=== PATIENT | male | born 1955 | race Hispanic/Latino ===

== ENCOUNTER 2025-01-07 13:00 | Emergency (ER) | payer OTHER ==
--- OUTSIDE RECORDS SUMMARY | 2025-01-07 13:14 | XMS REPORT | Continuity of Care Document ---
Author Name Unknown Address [address] [facility] [address] [place] [address] [facility] thconnect Address [address] [facility] [address] [place] [address] Care Team Providers Care It Desktop Support Technician Name Role Phone Sheyla Mccallum Primary Care Physician + [phone] MARÍA ELENA COWAN K.H. Attending Clinician Unavaila kylah ANJULIO PERRY Attending Clinician Unavailable ANORLANDO, JULIO Attending Clinician Unavailable MELO CHOE Attending Clinician Unavailab YOGI Alejo Attending Clinician Unavailable ROSENDA MARIE Attending Clinician Unavaila ROSENDA Holguin Attending Clinician Unavaila ble Doctor Unassigned, [place] Attending Clinician U Krystyna Quintana LVN Attending Clinician Unavailjennifer e 2, Amanda-[facility] Infusion Chair Attending Clinician Debbie vailable Melo Choe DO Attending Clinician [phone] Yogi French MD Attending Clinician [phone] Pob, [facility] Main Attending Clinician SHEYLA Reyna Attending Clinician Unavailable Sheyla Mccallum Attending Clinician [phone], Amanda-Vl Infusion Chair Attending Clinician Debbie vailable URSULA KIM Attending Clinician Unavailable Quentin TELLO, Ursula Attending Clinician [phone] Camryn BETANCOURT, María Elena K.H. Attending Clinician [phone] Julio Catalan MD Attending Clinician [phone] NICKI BACA Attending Clinician Unavailable Nicki Baca PA-C Attending Clinician [phone] RAUL PRYOR Attending Clinician Unavailable TORSTEN MAZARIEGOS Attending Clinician Unavailable JUAN CROSS Attending Clinician Unavailable Mariely BETANCOURT, Sophie Belcher Attending Clinician + [phone] Juan Cross MD Attending Clinician [phone] Keely Miner MD Attending Clinician [phone] Lab, Ang - Db Attending Clinician Unavailable Raul Jimenez Attending Clinician [phone] Monica Armstrong MA Attending Clinician Un available CHARLEE DAVIS Attending Clinician Unavailable Camryn BETANCOURT, Sendmalik K.H. Attending Clinician [phone], [facility] Attending Clinician Unavailable Sheyla Mccallum Attending Clinician + [phone] Quintin Ordonez MD Attending Clinician [phone] Lab, Ang - Db Attending Clinician Unavailable Raul Jimenez Attending Clinician [phone] Doctor Unassigned, [place] Attending Clinician U Rosenda Mata MD Attending Clinician + [phone] FRED BELCHER Attending Clinician Unavailable FRED BELCHER Attending Clinician Unavailable LUNA ALMEIDA Attending Clinician Unavailable Luna Almeida MD Attending Clinician [phone] Jagjit EVERETT, Gisela Pleitez Attending Clinician Unavaila PHILIP De Luna Attending Clinician Unavailable ELMO DUARTE Attending Clinician Unavailable ARLIN BENSON Attending Clinician Unavailable Arlin Benson MD Attending Clinician [phone] Unknown, Attending Attending Clinician Unavailab le UNKNOWN, ATTENDING Attending Clinician Unavailab le Nimtz PRESIDENT AND CMO, Brenda L Attending Clinician [phone] DANIELLE BRENDA Susanne Attending Clinician Unavailable Bhupendra EVERETT, Lyndon Figueroa Attending Clinician Unavail able Juan Cross MD Attending Clinician [phone] Jarrett Coronado MD Attending Clinician [phone] , [facility] Sleep Lab Bed Attending Clinician Unavail able Only, [facility] Test Attending Clinician Unavailable Aaron Newsome MD Attending Clinician [phone] AARON NEWSOME Attending Clinician UnavailRizwana Beltran MD Attending Clinician [phone] DARCY RIVERO Attending Clinician RIZWANA Limon Attending Clinician UnavailJeremy Concepcion Attending Clinician [phone] JEREMY RIVAS Attending Clinician Unavailable PAMELA PETERSON Attending Clinician Unavailable , [facility] Echo Room 1 - Attending Clinician Janet Wilkins MD, Wilmer Attending Clinician [phone] Elmo Rajput Attending Clinician [phone] YOGI FRENCH Admitting Clinician Unavailable Yogi French MD Admitting Clinician [phone] URSULA KIM Admitting Clinician Unavailable MARÍA ELENA COWAN Admitting Clinician UnavailJUAN Blanco Admitting Clinician Unavailable Juan Cross MD Admitting Clinician [phone] JULIO CATALAN Admitting Clinician Unavailable Juan Cross MD Admitting Clinician [phone] Payers Payer Name Policy Type Policy Number Effective Date Expirati on Date Source Problems Condition Name Condition Details Condition Category Status Onset Date Resolution Date Last Treatment Date Treating Clinician Comments Source End stage renal disease End stage renal disease Disease Active -16 00:00: 00 [facility] At risk for falls At risk for falls Disease Active 2023-11 00:00: 00 [facility] Unspecifie d abnormalit ies of gait and mobility Unspecifie d abnormalit ies of gait and mobility Disease Active 2023-11 00:00: 00 [facility] Hematuria, unspecifie d type Hematuria, unspecifie d type Disease Active 9-29 00:00: 00 [facility] Venous stasis dermatitis of both lower extremitie s Venous stasis dermatitis of both lower extremitie s Disease Active 830 00:00: 00 [facility] CKD (chronic kidney disease) stage 4, GFR 15-29 ml/min CKD (chronic kidney disease) stage 4, GFR 15-29 ml/min Disease Active 03-08 00:00: 00 [facility] Anemia, unspecifie d type Anemia, unspecifie d type Disease Active 4 00:00: 00 [facility] Venous stasis ulcer of right calf with fat layer exposed, unspecifie d whether varicose veins present Venous stasis ulcer of right calf with fat layer exposed, unspecifie d whether varicose veins present Disease Active 12-09 00:00: 00 [facility] Skin ulcer of third toe of left foot, limited to breakdown of skin Skin ulcer of third toe of left foot, limited to breakdown of skin Disease Active 12-09 00:00: 00 [facility] Cellulitis Cellulitis Disease Active 04-09 00:00: 00 [facility] Volume overload Volume overload Disease Active 04-09 00:00: 00 [facility] Chronic diastolic congestive heart failure Chronic diastolic congestive heart failure Disease Active 04-09 00:00: 00 [facility] ANNA (acute kidney injury) ANNA (acute kidney injury) Disease Active 04-09 00:00: 00 [facility] ANNA (acute kidney injury) ANNA (acute kidney injury) Disease Active 04-09 00:00: 00 [facility] Acute on chronic diastolic CHF (congestiv e heart failure) Acute on chronic diastolic CHF (congestiv e heart failure) Disease Active 04-08 00:00: 00 [facility] Morbid obesity with body mass index of 50 or higher Morbid obesity with body mass index of 50 or higher Disease Active 05-26 00:00: 00 [facility] 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 Disease Active 05-26 00:00: 00 [facility] JESUSITA on CPAP JESUSITA on CPAP Disease Active 05-26 00:00: 00 [facility] Chronic kidney disease, stage III (moderate) Chronic kidney disease, stage III (moderate) Disease Active 05-26 00:00: 00 [facility] Morbid obesity with body mass index of 40.0-49.9 Morbid obesity with body mass index of 40.0-49.9 Disease Active 05-26 00:00: 00 [facility] (HFpEF) heart failure with preserved ejection fraction (HFpEF) heart failure with preserved ejection fraction Disease Active 05-26 00:00: 00 [facility] Essential hypertensi on Essential hypertensi on Disease Active 05-02 00:00: 00 [facility] QUARLES (dyspnea on exertion) QUARLES (dyspnea on exertion) Disease Active 05-02 00:00: 00 [facility] Knee pain, bilateral Knee pain, bilateral Disease Active 05-01 00:00: 00 [facility] Knee pain, bilateral Knee pain, bilateral Disease Active 05-01 00:00: 00 [facility] Allergies, Adverse Reactions, Alerts Allergy Name Allergy Type Status Severity Reaction(s) Onset Date Inactive Date Treating Clinician Comments Source NO KNOWN ALLERGIE S Drug Class Active [facility] Social History Social Habit Start Date Stop Date Quantity Comments Source History SDOH Alcohol Std Drinks [facility] History SDOH Alcohol Binge [facility] History SDOH Social Connections Get Together [facility] History SDOH Social Connections Taoist [facility] History SDOH Social Connections Membership [facility] History SDOH Social Connections Meetings [facility] Gender identity [facility] Alcoholic beverage intake 2024-11-25 00:00:00 2024-11-25 00:00:00 Current non-drinker of alcohol (finding) [facility] History of Social function 2024-07-09 00:00:00 2024-07-09 00:00:00 [facility] Alcohol intake 2024-03-09 00:00:00 2024-03-09 00:00:00 Current non-drinker of alcohol (finding) [facility] History SDOH Alcohol Frequency 2023-04-09 00:00:00 2023-04-09 00:00:00 1 [facility] History SDOH Social Connections Phone 2023-04-09 00:00:00 2023-04-09 00:00:00 5 [facility] History SDOH Social Connections Living 2023-04-09 00:00:00 2023-04-09 00:00:00 3 [facility] History SDOH Financial 2023-04-09 00:00:00 2023-04-09 00:00:00 5 [facility] History SDOH Food Worry 2023-04-09 00:00:00 2023-04-09 00:00:00 1 [facility] History SDOH Food Scarcity 2023-04-09 00:00:00 2023-04-09 00:00:00 1 [facility] History SDOH Transport Med 2023-04-09 00:00:00 2023-04-09 00:00:00 2 [facility] History SDOH Transport Non-Med 2023-04-09 00:00:00 2023-04-09 00:00:00 2 [facility] History SDOH Housing Unable to Pay 2023-04-09 00:00:00 2023-04-09 00:00:00 2 [facility] History SDOH Housing Places Lived 2023-04-09 00:00:00 2023-04-09 00:00:00 1 [facility] History SDOH Housing Homeless Last Year 2023-04-09 00:00:00 2023-04-09 00:00:00 2 [facility] Exposure to SARS-CoV-2 (event) 2023-03-29 00:00:00 2023-04-08 17:34:00 Not sure [facility] Tobacco use and exposure 2022-08-09 00:00:00 2022-08-09 00:00:00 Smokeless tobacco non-user [facility] Sex assigned at 1955 00:00:00 1955 00:00:00 [facility] Smoking Status Start Date Stop Date Source Never smoked tobacco [facility] Medications Ordered Medication Name Filled Medication Name Start Date Stop Date Current Medication? Ordering Clinician Indication Dosage Frequency Signature (SIG) Comments Components Source NaCl 0.9% (NS) bolus infusion 250 mL 12-21 18:00: 00 12-21 19:25 :00 No [id number] 250mL 250 mL, IV Piggyback, at 250 mL/hr Administer over 60 Minutes, ONCE, 1 dose, On Fri12/21/24 at 1200, Routine [facility] cycloPHOSph amide (CYTOXAN LYOPHILIZED ) 850 mg in D5W 250 mL 12-21 15:30: 00 12-21 18:00 :00 No [id number] 850mg 850 mg, Intravenou s, Administer over 90 Minutes, ONCE, 1 dose, On Fri12/21/24 at 0930, Routine [facility] NaCl 0.9% (NS) bolus infusion 500 mL 12-21 14:30: 00 12-21 16:30 :00 No [id number] 500mL 500 mL, IV Piggyback, at 500 mL/hr Administer over 60 Minutes, ONCE, 1 dose, On Fri12/21/24 at 0830, STAT [facility] ondansetron (ZOFRAN) tablet 8 mg 12-21 14:15: 00 12-21 15:57 :00 No [id number] 8mg 8 mg, Oral, ONCE, 1 dose, On Fri12/21/24 at 0815, Routine [facility] bupivacaine (preserv free) (SENSORCAIN E MPF) 0.25 % (2.5 mg/mL) injection 12-09 15:12: 00 12-09 16:32 :20 No PRN, Starting on Zully 12/09/24 at 0912, Until Zully 12/09/24 at 1032, Routine, Intra-op [facility] water for irrigation irrigation solution 12-09 15:11: 00 12-09 16:32 :20 No PRN, Starting on Zully 12/09/24 at 0911, Until Zully 12/09/24 at 1032, Routine, Intra-op [facility] NaCl 0.9% (NS) IV infusion 12-09 15:11: 12-09 16:32 :20 No CONTINUOUS PRN, Starting on Zully 12/09/24 at 0911, Until Zully 12/09/24 at 1032, Routine, Intra-op [facility] heparin 5,000 unit/mL injection 12-09 15:11: 00 12-09 16:32 :20 No PRN, Starting on Zully 12/09/24 at 0911, Until Zully 12/09/24 at 1032, Routine, Intra-op [facility] acetaminoph en (TYLENOL EXTRA STRENGTH) 500 mg tablet 12-09 00:00: 00 Yes [id number] 500mg Take 1 tablet by mouth every 6 (six) hours as needed for Pain. [facility] traMADoL 50 mg tablet 12-09 00:00: 00 12-17 05:59 :00 No [id number] 50mg Take 1 tablet by mouth every 6 (six) hours as needed for Pain (scale 7-10) for up to 7 days. Indication s: acute pain [facility] Cholecalcif deidra, Vitamin D3, (VITAMIN D3) 50 mcg (2,000 unit) tablet 11-25 15:32: 21 Yes Take by mouth. [facility] cycloPHOSph amide 850 mg in NaCl 0.9% (NS) 250 mL IV infusion 11-23 15:00: 00 11-23 18:43 :00 No [id number] 850mg 850 mg, IV Infusion, ONCE, Administer over 90 Minutes, On Fri11/23/24 at 0900, For 1 dose, 7.5 mg/kg x 113.4 kg = 850. 5 mg round to 850 mg Today weight is 113.7 kg within 10% 3/6 monthy [facility] NaCl 0.9% (NS) IV infusion 500 mL 11-23 14:45: 00 11-23 16:46 :00 No [id number] 500mL at 250 mL/hr, IV Infusion, ONCE, 1 dose, On Fri11/23/24 at 0845, Routine, Pre Cytoxan infusion [facility] NaCl 0.9% (NS) bolus infusion 250 mL 11-23 14:15: 00 11-23 19:56 :00 No [id number] 250mL 250 mL, IV Piggyback, at 250 mL/hr Administer over 1 Hours, ONCE, 1 dose, On Fri11/23/24 at 0815, STAT [facility] ondansetron (ZOFRAN) tablet 8 mg 11-23 14:15: 00 11-23 16:24 :00 No [id number] 8mg 8 mg, Oral, ONCE, 1 dose, On Fri11/23/24 at 0815, Routine [facility] predniSONE 20 mg tablet 11-19 00:00: 00 02-18 04:59 :00 Yes 20mg Take 1 tablet by mouth in the morning. [facility] escitalopra m oxalate 10 mg tablet 11-11 00:00: 00 Yes [id number] 10mg Take 1 tablet by mouth in the morning. [facility] cycloPHOSph amide (CYTOXAN LYOPHILIZED ) 850 mg in D5W 250 mL 2023-11 16:45: 00 10-26 18:26 :00 No [id number] 850mg 850 mg, Intravenou s, Administer over 90 Minutes, ONCE, 1 dose, On Fri10/26/24 at 1045, Routine [facility] ondansetron (ZOFRAN) tablet 8 mg 2023-11 16:45: 00 10-26 16:20 :00 No [id number] 8mg 8 mg, Oral, ONCE, 1 dose, On Fri10/26/24 at 1045, Routine [facility] NaCl 0.9% (NS) IV infusion 500 mL 2023-11 14:15: 00 10-26 16:40 :00 No [id number] 500mL at 250 mL/hr, IV Infusion, ONCE, 1 dose, On Fri10/26/24 at 0815, Routine, Prior to Cytoxan [facility] methocarbam oL (ROBAXIN) tablet 1,000 mg 2023-11 19:00: 00 09-26 18:57 :00 No 1000mg 1,000 mg, Oral, ONCE, 1 dose, On Fri09/26/24 at 1300, NATE [facility] methocarbam oL 750 mg tablet 2023-11 00:00: 00 12-09 00:00 :00 No [id number] 750mg Take 1 tablet by mouth 4 (four) times daily as needed for Pain (scale 1-3) or Pain (scale 4-6). [facility] sevelamer 800 mg tablet 2023-11 00:00: 00 Yes 800mg Take 1 tablet by mouth in the morning and 1 tablet at noon and 1 tablet in the evening. Take with meals. [facility] furosemide 40 mg tablet 2023-11 00:00: 00 Yes 40mg Take 1 tablet by mouth every other day. Not on HD days [facility] hydrALAZINE 25 mg tablet 2023-11 00:00: 00 Yes 25mg Take 1 tablet by mouth in the morning. [facility] NaCl 0.9% (NS) bolus infusion 250 mL 2023-11 17:00: 00 09-16 21:53 :00 No [id number] 250mL at 250 mL/hr, 250 mL, IV Piggyback, ONCE, 1 dose, On Fri09/16/24 at 1100, Routine [facility] cycloPHOSph amide (CYTOXAN LYOPHILIZED ) 850 mg in D5W 250 mL 2023-11 17:00: 00 09-16 20:35 :00 No [id number] 850mg 850 mg, Intravenou s, Administer over 90 Minutes, ONCE, 1 dose, On Fri09/16/24 at 1100, Routine [facility] NaCl 0.9% (NS) IV infusion 500 mL 2023-11 16:45: 00 09-16 18:50 :00 No [id number] 500mL at 250 mL/hr, IV Infusion, ONCE, 1 dose, On Fri09/16/24 at 1045, Routine [facility] ondansetron (ZOFRAN) tablet 8 mg 2023-11 16:45: 00 09-16 18:19 :00 No [id number] 8mg 8 mg, Oral, ONCE, 1 dose, On Fri09/16/24 at 1045, Routine [facility] sulfur hexafluorid e microsphr (LUMASON) injection 5 mL 2023-11 15:45: 00 09-14 15:33 :00 No [id number] 5mL 5 mL, Intravenou s, ONCE, 1 dose, On Fri09/14/24 at 0945, Routine [facility] escitalopra m oxalate 10 mg tablet 2023-11 00:00: 00 11-11 00:00 :00 No [id number] 10mg Take 1 tablet by mouth in the morning. [facility] ergocalcife rol, vitamin d2, 1,250 mcg (50,000 unit) capsule 2023-11 00:00: 00 09-19 05:59 :00 No [id number] 25199E Take 1 capsule by mouth weekly for 28 days. [facility] amLODIPine (NORVASC) tablet 10 mg 2023-11 02:00: 00 Yes [id number] 10mg 10 mg, Oral, QHS, First dose (after last modificati on) on Fri08/18/24 at 2100, Until Discontinu ed, Routine [facility] pantoprazol e 40 mg EC tablet 2023-11 00:00: 00 09-19 05:59 :00 No [id number] 40mg Take 1 tablet by mouth in the morning for 30 days. [facility] predniSONE 20 mg tablet 2023-11 00:00: 00 09-19 05:59 :00 No [id number] 60mg Take 3 tablets by mouth in the morning for 30 days. [facility] 1,000 unit/mL (10 mL) - dialysis catheter care 2023-11 16:15: 00 08-18 15:40 :00 No [id number] 3700U ONCE, 1 dose, On Fri08/18/24 at 1115, Routine [facility] furosemide (LASIX) tablet 40 mg 2023-11 14:00: 00 Yes [id number] 40mg 40 mg, Oral, DAILY, First dose on Fri08/18/24 at 0900, Until Discontinu ed, Routine [facility] NaCl 0.9% (NS) injection 5 mL 2023-11 12:00: 00 08-18 15:41 :00 No [id number] 5mL 5 mL, Slow IV Push, ONCE, 1 dose, On Fri08/18/24 at 0700, Routine [facility] hydrALAZINE (APRESOLINE ) tablet 50 mg 2023-11 03:00: 00 Yes [id number] 50mg 50 mg, Oral, Q8H, First dose (after last modificati on) on Fri08/17/24 at 2200, Until Discontinu ed, Routine [facility] pantoprazol e 40 mg EC tablet 2023-11 00:00: 00 Yes 40mg Take 1 tablet by mouth in the morning. [facility] amLODIPine 10 mg tablet 2023-11 00:00: 00 09-18 05:59 :00 No [id number] 10mg Take 1 tablet by mouth at bedtime for 30 days. [facility] furosemide 40 mg tablet 2023-11 00:00: 00 09-18 05:59 :00 No [id number] 40mg Take 1 tablet by mouth in the morning for 30 days. [facility] hydrALAZINE 50 mg tablet 2023-11 00:00: 00 09-18 05:59 :00 No [id number] 50mg Take 1 tablet by mouth every 8 (eight) hours for 30 days. [facility] sevelamer 800 mg tablet 2023-11 00:00: 00 09-18 05:59 :00 No [id number] 800mg Take 1 tablet by mouth in the morning and 1 tablet at noon and 1 tablet in the evening. Take with meals. Do all this for 30 days. [facility] pantoprazol e (PROTONIX) EC tablet 40 mg 2023-11 17:00: 00 Yes [id number] 40mg 40 mg, Oral, DAILY, First dose on Fri08/17/24 at 1200, Until Discontinu ed, Routine [facility] predniSONE (DELTASONE) tablet 60 mg 2023-11 17:00: 00 Yes [id number] 60mg 60 mg, Oral, DAILY, First dose on Fri08/17/24 at 1200, Until Discontinu ed, Routine [facility] heparin 1,000 unit/mL (10 mL) - dialysis catheter care 2023-11 23:15: 00 08-16 23:19 :00 No [id number] 1000U ONCE, 1 dose, On Fri08/16/24 at 1815, Routine [facility] NaCl 0.9% (NS) injection 5 mL 2023-11 12:00: 00 08-16 20:05 :00 No [id number] 5mL 5 mL, Slow IV Push, ONCE, 1 dose, On Fri08/16/24 at 0700, Routine [facility] hydrALAZINE (APRESOLINE ) tablet 75 mg 2023-11 19:00: 00 08-17 12:50 :49 No [id number] 75mg 75 mg, Oral, Q8H, First dose (after last modificati on) on Fri08/15/24 at 1400, Until Discontinu ed, Routine [facility] hydrALAZINE (APRESOLINE ) tablet 50 mg 2023-11 19:00: 00 08-15 15:32 :38 No [id number] 50mg 50 mg, Oral, Q8H, First dose (after last modificati on) on 08/14/24 at 1400, Until Discontinu ed, Routine [facility] glucagon HCL injection 1 mg 2023-11 14:48: 37 Yes 1mg 1 mg, Intramuscu lar, PRN, Starting on 08/14/24 at 0948, Until Discontinu ed, NATE, Low blood sugar, Blood Glucose < or = 70 mg/dL and patient is NPO, unable to swallow or has mental changes. [facility] dextrose 50 % in water (D50W) injection 25 mL 2023-11 14:48: 37 Yes 25mL 25 mL, Slow IV Push, PRN, Starting on 08/14/24 at 0948, Until Discontinu ed, NATE, Blood Glucose < or = 70 mg/dL and patient is NPO, unable to swallow or has mental status changes. [facility] ergocalcife rol (vitamin d2) (CALCIFEROL ) capsule 50,000 Units 2023-11 14:00: 00 Yes [id number] 50,000 Units, Oral, QWEEKLY, First dose on 08/14/24 at 0900, Until Discontinu ed, Routine [facility] amLODIPine (NORVASC) tablet 10 mg 2023-11 14:00: 00 08-17 20:20 :46 No 10mg 10 mg, Oral, DAILY, First dose (after last modificati on) on 08/14/24 at 0900, Until Discontinu ed, Routine [facility] sevelamer (RENVELA) tablet 800 mg 2023-11 13:00: 00 Yes 800mg 800 mg, Oral, TID MEALS, First dose on 08/14/24 at 0800, Until Discontinu ed, Routine [facility] methylPREDN ISolone sodium succinate (SOLU-MEDRO L) 500 mg in NaCl 0.9% (NS) piggyback 2023-11 10:00: 00 08-16 11:04 :29 No 500mg 500 mg, IV Piggyback, Q24H, 3 doses, First dose on Fri08/14/24 at 0500, Last dose on Fri08/16/24 at 0500, Administer over 60 Minutes, 250 mL [facility] heparin (porcine) injection 5,000 Units 2023-11 0-05 01:00: 00 Yes [id number] 5000U 5,000 Units, Subcutaneo us, Q12H, First dose (after last modificati on) on Fri08/13/24 at 2000, Until Discontinu ed, [facility] heparin (porcine) injection 5,000 Units 2023-11 0-04 13:00: 00 Yes [id number] 5000U 5,000 Units, Subcutaneo us, Q12H, First dose (after last modificati on) on Fri08/13/24 at 0800, Until Discontinu ed, Routine [facility] azithromyci n (ZITHROMAX) tablet 500 mg 2023-11 0- 19:00: 00 08-12 18:16 :00 No 500mg 500 mg, Oral, Q24H ABX, 1 dose, First dose (after last modificati on) on Fri08/12/24 at 1400, Routine, Reason for Anti-Infec tive: Documented Infection, Documented Infection Site: Respirator y, Duration of Therapy: Other (see Comments) [facility] desmopressi n (DDAVP) 40 mcg in NaCl 0.9% (NS) piggyback 2023-11 0 17:00: 00 08-12 18:52 :26 No [id number] 40ug 40 mcg, IV Piggyback, ONCE, 1 dose, On Fri08/12/24 at 1200, 50 mL [facility] hydralAZINE (APRESOLINE ) injection 10 mg 2023-11 0-03 13:45: 00 08-12 14:20 :00 No [id number] 10mg 10 mg, Slow IV Push, ONCE, 1 dose, On Fri08/12/24 at 0845, STAT [facility] hydrALAZINE (APRESOLINE ) tablet 25 mg 2023-11 0-03 01:00: 00 08-14 16:24 :08 No [id number] 25mg 25 mg, Oral, BID, First dose on Fri08/11/24 at 2000, Until Discontinu ed, Routine [facility] azithromyci n (ZITHROMAX) tablet 250 mg 2023-11 19:00: 00 08-12 15:15 :33 No 250mg 250 mg, Oral, Q24H ABX, 2 doses, First dose on Fri08/11/24 at 1400, Last dose on Fri08/12/24 at 1400, Routine, Reason for Anti-Infec tive: Documented Infection, Documented Infection Site: Respirator y, Duration of Therapy: Other (see Comments) [facility] heparin 1,000 unit/mL (10 mL) - dialysis catheter care 2023-11 17:15: 00 08-11 16:29 :00 No [id number] 1000U ONCE, 1 dose, On Fri08/11/24 at 1215, Routine [facility] amLODIPine (NORVASC) tablet 5 mg 2023-11 17:00: 00 08-14 02:18 :12 No 5mg 5 mg, Oral, DAILY, First dose on Fri08/11/24 at 1200, Until Discontinu ed, Routine [facility] NaCl 0.9% (NS) injection 5 mL 2023-11 12:00: 00 08-11 16:31 :00 No [id number] 5mL 5 mL, Slow IV Push, ONCE, 1 dose, On Fri08/11/24 at 0700, Routine [facility] hydralAZINE (APRESOLINE ) injection 10 mg 2023-11 01:14: 07 08-12 13:00 :06 No 10mg 10 mg, Slow IV Push, Q4HPRN, Starting on Fri08/10/24 at 2013, Until Fri08/12/24 at 0800, STAT, DBP=>100; SBP=>160 [facility] heparin (porcine) injection 5,000 Units 2023-11 002 01:00: 00 08-11 16:50 :03 No [id number] 5000U 5,000 Units, Subcutaneo us, Q12H, First dose (after last modificati on) on Fri08/10/24 at 2000, Until Discontinu ed, Routine [facility] cefTRIAXone (ROCEPHIN) 1,000 mg in NaCl 0.9% (NS) 100 mL MINI-BAG 2023-11 23:45: 00 08-14 23:22 :04 No 1000mg 1,000 mg, IV Piggyback, Q24H ABX, 5 doses, First dose on Fri08/10/24 at 1845, Last dose on Fri08/14/24 at 1845, Administer over 30 Minutes, 100 mL, Reason for Anti-Infec tive: Empiric Therapy for Suspected Infection, Empiric Therapy Site: Respirator y, Duration of therapy: 5 days [facility] heparin 1,000 unit/mL (10 mL) - dialysis catheter care 2023-11 22:30: 00 08-11 00:00 :00 No [id number] 1000U ONCE, 1 dose, On Fri08/10/24 at 1730, Routine [facility] HYDROcodone -acetaminop hen (NORCO 5) tablet 1 tablet 2023-11 17:59: 44 Yes 1{tbl} 1 tablet, Oral, Q8HPRN, Starting on Fri08/10/24 at 1259, Until Discontinu ed, NATE, Pain (scale 7-10) [facility] azithromyci n (ZITHROMAX) 500 mg in NaCl 0.9% (NS) 250 mL VIAL-MATE IV piggyback 2023-11 16:30: 00 08-11 15:50 :36 No 500mg 500 mg, IV Piggyback, Q24H ABX, 3 doses, First dose on Fri08/10/24 at 1130, Last dose on Fri08/12/24 at 1130, Administer over 60 Minutes, 250 mL, Reason for Anti-Infec tive: Empiric Therapy for Suspected Infection, Empiric Therapy Site: Respirator y, Duration of therapy: 5 days [facility] heparin lock flush (HEPARIN LOCKFLUSH(P ORCINE)(PF) ) 100 unit/mL injection 2023-11 16:17: 00 08-10 16:37 :02 No PRN, Starting on Fri08/10/24 at 1117, Until Fri08/10/24 at 1137, Routine, Intra-op [facility] NaCl 0.9% (NS) IV infusion 2023-11 15:58: 00 08-10 16:37 :02 No CONTINUOUS PRN, Starting on Fri08/10/24 at 1058, Until Fri08/10/24 at 1137, Routine, Intra-op [facility] bupivacaine -epinephrin e-pf (SENSORCAIN E W/EPINEPHRI NE) 0.25 %-1:200,000 injection 2023-11 15:58: 00 08-10 16:37 :02 No PRN, Starting on Fri08/10/24 at 1058, Until Fri08/10/24 at 1137, Routine, Intra-op [facility] magnesium sulfate in D5W 1 gram/100 mL RTU IV Piggyback 1 g 2023-11 13:30: 00 08-10 15:13 :00 No [id number] 1g 1 g, IV Piggyback, ONCE, 1 dose, On Fri08/10/24 at 0830, Administer over 90 Minutes, 100 mL [facility] potassium chloride in water 10 mEq/100 mL RTU 10 mEq 2023-11 13:30: 00 08-10 15:53 :00 No [id number] 10meq 10 mEq, IV Piggyback, ONCE, 1 dose, On Fri08/10/24 at 0830, Administer over 120 Minutes, 100 mL [facility] heparin (porcine) injection 5,000 Units 2023-11 01:00: 00 08-10 12:41 :37 No [id number] 5000U 5,000 Units, Subcutaneo us, Q12H, First dose (after last modificati on) on Fri08/09/24 at 2000, Until Discontinu ed, Routine [facility] calcium acetate(jenniffer sphat bind) (PHOSLO) capsule 667 mg 08-09 17:00: 00 08-16 17:23 :22 No [id number] 667mg 667 mg, Oral, TID MEALS, First dose on Fri08/09/24 at 1200, Until Discontinu ed, Routine [facility] fluconazole (DIFLUCAN) Piggyback 200 mg 08-09 16:00: 00 08-10 15:21 :48 No [id number] 200mg at 100 mL/hr, IV Piggyback, Q24H ABX, 5 doses, First dose on Fri08/09/24 at 1100, Last dose on Fri08/13/24 at 1100, NATE, Do Not Refrigerat e. [facility] cefTRIAXone (ROCEPHIN) 1,000 mg in NaCl 0.9% (NS) 100 mL MINI-BAG 08-09 15:15: 00 08-09 22:19 :16 No 1000mg 1,000 mg, IV Piggyback, Q24H ABX, 7 doses, First dose on Fri08/09/24 at 1015, Last dose on Fri08/15/24 at 1015, Administer over 30 Minutes, 100 mL, Reason for Anti-Infec tive: Documented Infection, Documented Infection Site: Urine, Duration of Therapy: 7 days [facility] KCL (KLOR-CON M10) tablet 10 mEq 08-09 15:00: 00 08-09 15:35 :00 No 10meq 10 mEq, Oral, ONCE, 1 dose, On Fri08/09/24 at 1000, Routine [facility] sodium bicarbonate 150 mEq in D5W 1,000 mL IV infusion 08-09 14:15: 00 08-10 12:41 :02 No [id number] 150meq IV Infusion, at 75 mL/hr, 150 mEq, CONTINUOUS , Starting on Fri08/09/24 at 0915, Until Fri08/10/24 at 0741, Routine [facility] escitalopra m oxalate (LEXAPRO) tablet 10 mg 08-09 14:00: 00 Yes 10mg 10 mg, Oral, DAILY, First dose on Fri08/09/24 at 0900, Until Discontinu ed, Routine [facility] magnesium sulfate in D5W 1 gram/100 mL RTU IV Piggyback 1 g 08-09 14:00: 00 08-09 15:08 :00 No [id number] 1g 1 g, IV Piggyback, ONCE, 1 dose, On Fri08/09/24 at 0900, Administer over 90 Minutes, 100 mL [facility] benzonatate (TESSALON PERLES) capsule 100 mg 08-09 01:32: 51 Yes 100mg [facility] acetaminoph en (TYLENOL) tablet 650 mg 08-08 20:19: 17 Yes 650mg [facility] NaCl 0.9% (NS) bolus infusion 1,000 mL 08-08 18:00: 00 08-08 19:00 :00 No 1000mL at 999 mL/hr, 1,000 mL, IV Infusion, ONCE, 1 dose, On Fri08/08/24 at 1300, NATE [facility] benzonatate (TESSALON PERLES) 100 mg capsule 08-06 00:00: 00 08-26 00:00 :00 No [id number] 100mg Take 1 capsule by mouth every 8 (eight) hours as needed for Cough. [facility] cephALEXin 500 mg capsule 08-06 00:00: 00 08-18 00:00 :00 No [id number] 500mg Take 1 capsule by mouth in the morning and 1 capsule in the evening. Do all this for 10 days. [facility] escitalopra m oxalate 10 mg tablet 08-02 00:00: 00 09-02 00:00 :00 No [id number] 10mg Take 1 tablet by mouth in the morning. MUST BE SEEN FOR FURTHER REFILLS [facility] triamcinolo ne acetonide 0.1 % ointment 07-09 00:00: 00 08-18 00:00 :00 No [id number] Apply to area(s) 2 (two) times daily. [facility] escitalopra m oxalate (LEXAPRO) 10 mg tablet 07-02 00:00: 00 08-02 00:00 :00 No [id number] 10mg Take 1 tablet by mouth in the morning. Follow-up for refills and fasting labs. [facility] aspirin 81 mg chewable tablet 24 14:21: 40 08-18 00:00 :00 No 81mg Take 1 tablet by mouth in the morning. [facility] docusate 100 mg capsule 05-03 14:21: 36 08-18 00:00 :00 No 100mg Take 1 capsule by mouth in the morning. [facility] valsartan-h ydrochlorot hiazide 320-12.5 mg per tablet 04-16 00:00: 00 05-03 00:00 :00 No [id number] TAKE 1 TABLET BY MOUTH EVERY DAY [facility] ESCITALOPRA M OXALATE 10 mg tablet 17 00:00: 00 07-02 00:00 :00 No [id number] 10mg TAKE 1 TABLET BY MOUTH EVERY MORNING. MUST BE SEEN FOR FURTHER REFILLS [facility] HYDROcodone -acetaminop hen 7.5-325 mg per tablet -08 00:00: 00 08-18 00:00 :00 No TAKE 1 TABLET BY MOUTH EVERY 6 HOURS NEEDED [facility] aspirin 81 mg chewable tablet 20 13:45: 03 Yes 81mg Take 1 tablet by mouth in the morning. [facility] SANTYL 250 unit/gram ointment 3-19 00:00: 00 08-18 00:00 :00 No Apply to affected area(s) once daily as needed. [facility] LIDOCAINE VISCOUS 2 % solution 3-13 00:00: 00 08-18 00:00 :00 No APPLY TO WOUND 5 MIN PRIOR TO WOULD CARE DAILY FOR 30 DAYS [facility] mupirocin 2 % ointment 2-27 00:00: 00 01-20 04:59 :00 No [id number] Apply to area(s) 3 (three) times daily for 14 days. [facility] escitalopra m oxalate 10 mg tablet 2-20 00:00: 03-26 00:00 :00 No [id number] 10mg TAKE 1 TABLET BY MOUTH EVERY MORNING. MUST BE SEEN FOR FURTHER REFILLS [facility] mupirocin 2 % ointment 1-30 00:00: 00 12-24 05:59 :00 No [id number] Apply to area(s) 3 (three) times daily for 14 days. [facility] escitalopra m oxalate 10 mg tablet 12-05 00:00: 00 12-30 00:00 :00 No [id number] 10mg TAKE 1 TABLET BY MOUTH EVERY MORNING. MUST BE SEEN FOR FURTHER REFILLS [facility] sulfamethox azole-trime thoprim 800-160 mg per tablet 12-05 00:00: 00 12-13 05:59 :00 No [id number] 1{tbl} Take 1 tablet by mouth every 12 (twelve) hours for 7 days. [facility] ESCITALOPRA M OXALATE 10 mg tablet 2022-11 00:00: 00 12-05 00:00 :00 No [id number] 10mg TAKE 1 TABLET BY MOUTH EVERY MORNING. MUST BE SEEN FOR FURTHER REFILLS [facility] atorvastati n 20 mg tablet 2022-11 00:00: 00 05-03 00:00 :00 No [id number] 20mg Take 1 tablet by mouth at bedtime. Please do labs in 2 to 3 months time. Orders placed in [facility]. [facility] sulfur hexafluorid e microsphr (LUMASON) injection 5 mL 08-08 17:17: 00 08-08 17:17 :00 No [id number] 02 5mL 5 mL, Intravenou s, ONCE, 1 dose, On Fri08/08/23 at 1217, Routine
membership administrator approving Restricted medication : MARÍA ELENA COWAN [facility] aspirin 81 mg chewable tablet 08-08 14:16: 41 Yes 81mg Take 1 tablet by mouth in the morning. [facility] ESCITALOPRA M OXALATE 10 mg tablet 06-08 00:00: 00 09-07 00:00 :00 No [id number] 10mg TAKE 1 TABLET BY MOUTH EVERY MORNING. MUST BE SEEN FOR FURTHER REFILLS [facility] colchicine 0.6 mg tablet 06-05 00:00: 00 08-08 00:00 :00 No [id number] Take 1.2 mg po x 1, then 0.6 mg po 1 hour later x 1. [facility] aspirin 81 mg chewable tablet 06-04 08:56: 43 Yes 81mg Take 1 tablet by mouth in the morning. [facility] docusate 100 mg capsule 06-04 08:56: 43 Yes 100mg Take 1 capsule by mouth in the morning. [facility] predniSONE 20 mg tablet 05-19 00:00: 00 05-25 04:59 :00 No [id number] 40mg Take 2 tablets by mouth in the morning for 5 days. [facility] ESCITALOPRA M OXALATE 10 mg tablet 05-07 00:00: 00 06-08 00:00 :00 No [id number] 10mg TAKE 1 TABLET BY MOUTH EVERY MORNING. MUST BE SEEN FOR FURTHER REFILLS [facility] aspirin 81 mg chewable tablet 04-10 13:48: 13 Yes 81mg Take 1 tablet by mouth in the morning. [facility] docusate 100 mg capsule 04-10 13:48: 13 Yes 100mg Take 1 capsule by mouth in the morning. [facility] GARLIC EXTRACT ORAL 04-10 13:48: 13 08-18 00:00 :00 No 1000mg Take 1,000 mg by mouth. [facility] mupirocin (BACTROBAN OINT) 2 % skin ointment 04-10 01:00: 00 Yes [facility] furosemide 20 mg tablet 04-10 00:00: 00 05-03 00:00 :00 No [id number] 40mg Take 2 tablets by mouth every morning and evening. [facility] KCL 20 mEq tablet 04-10 00:00: 00 05-11 04:59 :00 No [id number] 00 20meq Take 1 tablet by mouth in the morning for 30 days. [facility] sulfur hexafluorid e microsphr (LUMASON) injection 5 mL 04-09 17:45: 00 04-09 17:45 :00 No [id number] 5mL 5 mL, Intravenou s, ONCE, 1 dose, On Fri04/09/23 at 1245, Routine
membership administrator approving Restricted medication : MARÍA ELENA COWAN [facility] HYDROcodone -acetaminop hen (NORCO) 10-325 mg tablet 1 tablet 04-09 14:29: 40 Yes 1{tbl} 1 tablet, Oral, Q6HPRN, Starting on Fri04/09/23 at 0929, Until Discontinu ed, Routine, Pain (scale 7-10) [facility] enoxaparin (LOVENOX) injection 40 mg 04-09 14:00: 00 Yes 40mg 40 mg, Subcutaneo us, DAILY, First dose on Fri04/09/23 at 0900, Until Discontinu ed, Routine [facility] docusate (COLACE) capsule 100 mg 04-09 14:00: 00 Yes 100mg 100 mg, Oral, DAILY, First dose on Fri04/09/23 at 0900, Until Discontinu ed, Routine [facility] escitalopra m oxalate (LEXAPRO) tablet 10 mg 04-09 14:00: 00 Yes 10mg 10 mg, Oral, QAM, First dose on Fri04/09/23 at 0900, Until Discontinu ed, Routine [facility] aspirin chewable tablet 81 mg 04-09 14:00: 00 Yes 81mg 81 mg, Oral, DAILY, First dose on Fri04/09/23 at 0900, Until Discontinu ed, Routine [facility] furosemide (LASIX) injection 40 mg 04-09 01:00: 00 Yes 40mg 40 mg, Slow IV Push, Q12H, First dose on Fri04/08/23 at 2000, Until Discontinu ed, Routine [facility] cephALEXin (KEFLEX) capsule 500 mg 04-09 01:00: 00 04-16 00:59 :00 No 500mg 500 mg, Oral, QID, 28 doses, First dose on Fri04/08/23 at 2000, Last dose on Fri04/15/23 at 1600, NATE
Re ason for Anti-Infec tive: Documented Infection< br>[facility] [place] Infection Site: Skin / Soft Tissue
Duration of Therapy: 7 days [facility] ondansetron (ZOFRAN (PF)) injection 4 mg 04-08 23:00: 59 Yes 4mg 4 mg, Slow IV Push, Q6HPRN, Starting on Fri04/08/23 at 1800, Until Discontinu ed, Routine, Nausea and Vomiting (N/V) [facility] acetaminoph en (TYLENOL) tablet 650 mg 04-08 22:57: 07 Yes 650mg 650 mg, Oral, Q6HPRN, Starting on Fri04/08/23 at 1757, Until Discontinu ed, Routine, Pain (scale 1-3) [facility] aspirin 81 mg chewable tablet 04-08 18:01: 53 Yes 81mg Take 1 tablet by mouth in the morning. [facility] GARLIC EXTRACT ORAL 04-08 18:01: 53 Yes 1000mg Take 1,000 mg by mouth. [facility] docusate 100 mg capsule 04-08 18:01: 53 Yes 100mg Take 1 capsule by mouth in the morning. [facility] aspirin 81 mg chewable tablet 04-08 17:39: 23 Yes 81mg Take 1 tablet by mouth in the morning. [facility] docusate 100 mg capsule 04-08 17:39: 23 Yes 100mg Take 1 capsule by mouth in the morning. [facility] GARLIC EXTRACT ORAL 04-08 17:23: 58 Yes 1000mg Take 1,000 mg by mouth. [facility] mupirocin 2 % ointment 04-04 00:00: 00 08-26 00:00 :00 No [id number] Apply to area(s) 3 (three) times daily. [facility] cephALEXin (KEFLEX) 500 mg capsule 04-04 00:00: 00 04-12 04:59 :00 No [id number] 500mg Take 1 capsule by mouth 4 (four) times daily for 7 days. Take with food. Take probiotic. [facility] escitalopra m oxalate 10 mg tablet 03-11 00:00: 00 05-07 00:00 :00 No [id number] 10mg Take 1 tablet by mouth every morning. MUST BE SEEN FOR FURTHER REFILLS [facility] valsartan-h ydrochlorot hiazide 320-12.5 mg per tablet 02-04 00:00: 00 04-16 00:00 :00 No [id number] TAKE 1 TABLET BY MOUTH DAILY FOR 90 DAYS. [facility] escitalopra m oxalate 10 mg tablet 01-31 00:00: 00 03-11 00:00 :00 No [id number] 10mg Take 1 tablet by mouth every morning. MUST BE SEEN FOR FURTHER REFILLS [facility] aspirin 81 mg chewable tablet 11-27 14:05: 16 Yes 81mg Take 81 mg by mouth daily. [facility] GARLIC EXTRACT ORAL 11-27 14:05: 16 Yes 1000mg Take 1,000 mg by mouth. [facility] escitalopra m oxalate 10 mg tablet 2021-11 2-15 00:00: 00 01-31 00:00 :00 No [id number] 10mg Take 1 tablet by mouth in the morning. [facility] atorvastati n 20 mg tablet 2021-11 0-05 00:00: 00 08-10 00:00 :00 No [id number] 20mg Take 1 tablet by mouth at bedtime. Please do labs in 2 to 3 months time. Orders placed in [facility]. [facility] furosemide 20 mg tablet 2021-11 0-05 00:00: 00 04-10 00:00 :00 No [id number] 20mg Take 1 tablet by mouth in the morning. [facility] valsartan-h ydrochlorot hiazide 320-12.5 mg per tablet 2021-11 0-05 00:00: 00 02-04 00:00 :00 No [id number] TAKE 1 TABLET BY MOUTH DAILY FOR 90 DAYS. [facility] aspirin 81 mg chewable tablet 930 14:33: 08 Yes 81mg Take 1 tablet by mouth in the morning. [facility] ESCITALOPRA M OXALATE 10 mg tablet 9-04 00:00: 00 10-24 00:00 :00 No [id number] 10mg TAKE 1 TABLET BY MOUTH DAILY. [facility] VALSARTAN-H YDROCHLOROT HIAZIDE 320-12.5 mg per tablet 9- 00:00: 00 08-14 00:00 :00 No TAKE 1 TABLET BY MOUTH DAILY FOR 90 DAYS. [facility] furosemide 20 mg tablet 8-22 00:00: 00 08-14 00:00 :00 No [id number] 20mg Take 20 mg by mouth in the morning. [facility] clotrimazol e-betametha sone cream 7-08 00:00: 00 06-01 04:59 :00 No [id number] Apply to area(s) 2 (two) times daily for 14 days. [facility] valsartan-h ydrochlorot hiazide 320-12.5 mg per tablet 5-31 00:00: 00 07-11 00:00 :00 No [facility] ESCITALOPRA M OXALATE 10 mg tablet -15 00:00: 00 07-14 00:00 :00 No [id number] 10mg TAKE 1 TABLET BY MOUTH DAILY. [facility] escitalopra m oxalate (LEXAPRO) 10 mg tablet 2020-11 00:00: 00 11-24 00:00 :00 No [id number] 10mg Take 1 tablet by mouth daily. [facility] GARLIC EXTRACT ORAL 2020-11 15:59: 46 Yes 1000mg Take 1,000 mg by mouth. [facility] aspirin 81 mg chewable tablet 2020-11 15:59: 46 Yes 81mg Take 81 mg by mouth daily. [facility] docusate 100 mg capsule 2020-11 15:57: 28 Yes 100mg Take 1 capsule by mouth in the morning. [facility] furosemide 20 mg tablet 2020-11 00:00: 00 11-09 05:59 :00 No [id number] 20mg Take 1 tablet by mouth daily for 90 days. [facility] valsartan-h ydrochlorot hiazide 320-12.5 mg per tablet 2020-11 00:00: 00 11-09 05:59 :00 No [id number] 1{tbl} Take 1 tablet by mouth daily for 90 days. [facility] furosemide (LASIX) 20 mg tablet 08-04 14:35: 45 08-04 00:00 :00 No 20mg Take 20 mg by mouth as needed (For leg swelling). [facility] HYDROcodone -acetaminop hen 10-325 mg tablet 6-16 00:00: 00 12-09 00:00 :00 No 1{tbl} Take 1 tablet by mouth every 6 (six) hours as needed for Pain (scale 1-3). [facility] escitalopra m oxalate 20 mg tablet 15 00:00: 00 08-19 00:00 :00 No 20mg Take 20 mg by mouth at bedtime. [facility] valsartan-h ydrochlorot hiazide 320-25 mg per tablet 2016-0 5-15 00:00: 00 08-04 00:00 :00 No 1{tbl} Take 1 tablet by mouth daily. [facility] Immunizations Ordered Immunization Name Filled Immunization Name Date Status Comments Source Influenza, adjuvanted, trivalent, PF (FLUAD) 2024-07-09 00:00:00 Completed Influenza, adjuvanted, trivalent, PF (FLUAD) 2024-07-09 00:00:00 Completed Influenza, adjuvanted, trivalent, PF (FLUAD) 2024-07-09 00:00:00 Completed Influenza, adjuvanted, trivalent, PF (FLUAD) 2024-07-09 00:00:00 Completed Influenza, adjuvanted, trivalent, PF (FLUAD) 2024-07-09 00:00:00 Completed Influenza, adjuvanted, trivalent, PF (FLUAD) 2024-07-09 00:00:00 Completed Influenza, adjuvanted, trivalent, PF (FLUAD) 2024-07-09 00:00:00 Completed Influenza, adjuvanted, trivalent, PF (FLUAD) 2024-07-09 00:00:00 Completed SARS-COV-2 COVID 19 SPIKE PROTEIN VACCINE , , 50 mcg/0.5 ml, IM MODERNA 2023-09-17 00:00:00 Completed SARS-COV-2 COVID-19 UNSPECIFIED VACCINE 2023-09-17 00:00:00 Completed SARS-COV-2 COVID 19 SPIKE PROTEIN VACCINE +, , 50 mcg/0.5 ml, IM MODERNA 2023-09-17 00:00:00 Completed SARS-COV-2 COVID-19 UNSPECIFIED VACCINE 2023-09-17 00:00:00 Completed SARS-COV-2 COVID 19 SPIKE PROTEIN VACCINE +, , 50 mcg/0.5 ml, IM MODERNA 2023-09-17 00:00:00 Completed SARS-COV-2 COVID-19 UNSPECIFIED VACCINE 2023-09-17 00:00:00 Completed SARS-COV-2 COVID 19 SPIKE PROTEIN VACCINE 12+, , 50 mcg/0.5 ml, IM MODERNA 2023-09-17 00:00:00 Completed SARS-COV-2 COVID-19 UNSPECIFIED VACCINE 2023-09-17 00:00:00 Completed SARS-COV-2 COVID 19 SPIKE PROTEIN VACCINE 12+, , 50 mcg/0.5 ml, IM MODERNA 2023-09-17 00:00:00 Completed SARS-COV-2 COVID-19 UNSPECIFIED VACCINE 2023-09-17 00:00:00 Completed SARS-COV-2 COVID 19 SPIKE PROTEIN VACCINE 12+, , 50 mcg/0.5 ml, IM MODERNA 2023-09-17 00:00:00 Completed SARS-COV-2 COVID-19 UNSPECIFIED VACCINE 2023-09-17 00:00:00 Completed SARS-COV-2 COVID 19 SPIKE PROTEIN VACCINE 12+, , 50 mcg/0.5 ml, IM MODERNA 2023-09-17 00:00:00 Completed SARS-COV-2 COVID-19 UNSPECIFIED VACCINE 2023-09-17 00:00:00 Completed SARS-COV-2 COVID 19 SPIKE PROTEIN VACCINE 12+, , 50 mcg/0.5 ml, IM MODERNA 2023-09-17 00:00:00 Completed SARS-COV-2 COVID-19 UNSPECIFIED VACCINE 2023-09-17 00:00:00 Completed Influenza, High-Dose, Trivalent, PF (FLUZONE) 2023-09-16 00:00:00 Completed Influenza, High-Dose, Trivalent, PF (FLUZONE) 2023-09-16 00:00:00 Completed Influenza, High-Dose, Trivalent, PF (FLUZONE) 2023-09-16 00:00:00 Completed Influenza, High-Dose, Trivalent, PF (FLUZONE) 2023-09-16 00:00:00 Completed Influenza, High-Dose, Trivalent, PF (FLUZONE) 2023-09-16 00:00:00 Completed Influenza, High-Dose, Trivalent, PF (FLUZONE) 2023-09-16 00:00:00 Completed Influenza, High-Dose, Trivalent, PF (FLUZONE) 2023-09-16 00:00:00 Completed Influenza, High-Dose, Trivalent, PF (FLUZONE) 2023-09-16 00:00:00 Completed Influenza Virus Vaccine,quad Im,preserve Free 2022-08-09 00:00:00 Completed [facility] Influenza Virus Vaccine,quad Im,preserve Free 2022-08-09 00:00:00 Completed [facility] Influenza Virus Vaccine,quad Im,preserve Free 2022-08-09 00:00:00 Completed [facility] Influenza Virus Vaccine,quad Im,preserve Free 2022-08-09 00:00:00 Completed [facility] Influenza Virus Vaccine,quad Im,preserve Free 2022-08-09 00:00:00 Completed [facility] Influenza Virus Vaccine,quad Im,preserve Free 2022-08-09 00:00:00 Completed [facility] Influenza Virus Vaccine,quad Im,preserve Free 2022-08-09 00:00:00 Completed [facility] Influenza Virus Vaccine,quad Im,preserve Free 2022-08-09 00:00:00 Completed [facility] Influenza Virus Vaccine,quad Im,preserve Free 2022-08-09 00:00:00 Completed [facility] Influenza Virus Vaccine,quad Im,preserve Free 2022-08-09 00:00:00 Completed [facility] Influenza Virus Vaccine,quad Im,preserve Free 2022-08-09 00:00:00 Completed [facility] Influenza Virus Vaccine,quad Im,preserve Free 2022-08-09 00:00:00 Completed [facility] Influenza Virus Vaccine,quad Im,preserve Free 2022-08-09 00:00:00 Completed [facility] Influenza Virus Vaccine,quad Im,preserve Free 2022-08-09 00:00:00 Completed [facility] Influenza Virus Vaccine,quad Im,preserve Free 2022-08-09 00:00:00 Completed [facility] Influenza Virus Vaccine,quad Im,preserve Free 2022-08-09 00:00:00 Completed [facility] Influenza Virus Vaccine,quad Im,preserve Free 65+ 2022-08-09 00:00:00 Completed [facility] Influenza Virus Vaccine,quad Im,preserve Free 65+ 2022-08-09 00:00:00 Completed [facility] Influenza Virus Vaccine,quad Im,preserve Free 65+ 2022-08-09 00:00:00 Completed [facility] Influenza Virus Vaccine,quad Im,preserve Free 65+ 2022-08-09 00:00:00 Completed [facility] Influenza Virus Vaccine,quad Im,preserve Free 65+ 2022-08-09 00:00:00 Completed [facility] Influenza Virus Vaccine,quad Im,preserve Free 65+ 2022-08-09 00:00:00 Completed [facility] Influenza Virus Vaccine,quad Im,preserve Free 652022-08-09 00:00:00 Completed [facility] Influenza Virus Vaccine,quad Im,preserve Free 65+ 2022-08-09 00:00:00 Completed [facility] Influenza Virus Vaccine,quad Im,preserve Free 652022-08-09 00:00:00 Completed [facility] Influenza Virus Vaccine,quad Im,preserve Free [id number] 00:00:00 Completed [facility] Influenza Virus Vaccine,quad Im,preserve Free [id number] 00:00:00 Completed [facility] Influenza Virus Vaccine,quad Im,preserve Free 65+ 2022-08-09 00:00:00 Completed [facility] Influenza Virus Vaccine,quad Im,preserve Free 652022-08-09 00:00:00 Completed [facility] Influenza Virus Vaccine,quad Im,preserve Free 65+ 2022-08-09 00:00:00 Completed [facility] Influenza Virus Vaccine,quad Im,preserve Free 65+ 2022-08-09 00:00:00 Completed [facility] Influenza Virus Vaccine,quad Im,preserve Free 65+ 2022-08-09 00:00:00 [facility] [facility] Influenza Virus Vaccine,quad Im,preserve Free 65+ (FLUAD) 2022-08-09 00:00:00 Completed [facility] Influenza Virus Vaccine,quad Im,preserve Free 65+ (FLUAD) 2022-08-09 00:00:00 Completed [facility] Influenza Virus Vaccine,quad Im,preserve Free 65+ (FLUAD) 2022-08-09 00:00:00 Completed [facility] Influenza Virus Vaccine,quad Im,preserve Free 65+ (FLUAD) 2022-08-09 00:00:00 Completed [facility] Influenza Virus Vaccine,quad Im,preserve Free 65+ (FLUAD) 2022-08-09 00:00:00 Completed [facility] Influenza Virus Vaccine,quad Im,preserve Free 65+ (FLUAD) 2022-08-09 00:00:00 Completed [facility] Influenza Virus Vaccine,quad Im,preserve Free 65+ (FLUAD) 2022-08-09 00:00:00 Completed [facility] Influenza Virus Vaccine,quad Im,preserve Free 65+ (FLUAD) 2022-08-09 00:00:00 Completed [facility] Influenza Virus Vaccine,quad Im,preserve Free 65+ 2022-08-09 00:00:00 Completed [facility] Influenza Virus Vaccine,quad Im,preserve Free 65+ 2022-08-09 00:00:00 Completed [facility] Influenza Virus Vaccine,quad Im,preserve Free 65+ 2022-08-09 00:00:00 Completed [facility] Influenza Virus Vaccine,quad Im,preserve Free 65+ 2022-08-09 00:00:00 Completed [facility] Influenza Virus Vaccine,quad Im,preserve Free 65+ 2022-08-09 00:00:00 Completed [facility] Influenza Virus Vaccine,quad Im,preserve Free 65+ 2022-08-09 00:00:00 Completed [facility] SARS-COV-2 COVID-19 PFIZER VACCINE 2021-11-15 00:00:00 Completed [facility] SARS-COV-2 COVID-19 PFIZER VACCINE 2021-11-15 00:00:00 Completed [facility] SARS-COV-2 COVID-19 PFIZER VACCINE 2021-11-15 00:00:00 Completed [facility] SARS-COV-2 COVID-19 PFIZER VACCINE 2021-11-15 00:00:00 Completed [facility] SARS-COV-2 COVID-19 PFIZER VACCINE 2021-11-15 00:00:00 Completed SARS-COV-2 COVID-19 PFIZER VACCINE 2021-11-15 00:00:00 Completed [facility] SARS-COV-2 COVID-19 PFIZER VACCINE 2021-11-15 00:00:00 Completed [facility] SARS-COV-2 COVID-19 PFIZER VACCINE 2021-11-15 00:00:00 Completed [facility] Influenza High Dose Quad 2021-08-07 00:00:00 Completed [facility] Influenza High Dose Quad 2021-08-07 00:00:00 Completed [facility] Influenza High Dose Quad 2021-08-07 00:00:00 Completed [facility] Influenza High Dose Quad 2021-08-07 00:00:00 Completed [facility] Influenza High Dose Quad 2021-08-07 00:00:00 Completed [facility] Influenza High Dose Quad 2021-08-07 00:00:00 Completed [facility] Influenza High Dose Quad 2021-08-07 00:00:00 Completed [facility] Influenza High Dose Quad 2021-08-07 00:00:00 Completed [facility] Influenza High Dose Quad 2021-08-07 00:00:00 Completed [facility] Influenza High Dose Quad 2021-08-07 00:00:00 Completed [facility] Influenza High Dose Quad 2021-08-07 00:00:00 Completed [facility] Influenza High Dose Quad 2021-08-07 00:00:00 Completed [facility] Influenza High Dose Quad 2021-08-07 00:00:00 Completed [facility] Influenza High Dose Quad 2021-08-07 00:00:00 Completed [facility] Influenza High Dose Quad 2021-08-07 00:00:00 Completed [facility] Influenza High Dose Quad 2021-08-07 00:00:00 Completed [facility] Influenza High Dose Quad 2021-08-07 00:00:00 Completed [facility] Influenza High Dose Quad 2021-08-07 00:00:00 Completed [facility] Influenza High Dose Quad 2021-08-07 00:00:00 Completed [facility] Influenza High Dose Quad 2021-08-07 00:00:00 Completed [facility] Influenza High Dose Quad 2021-08-07 00:00:00 Completed [facility] Influenza High Dose Quad 2021-08-07 00:00:00 Completed [facility] Influenza High Dose Quad 2021-08-07 00:00:00 Completed [facility] Influenza High Dose Quad 2021-08-07 00:00:00 Completed [facility] Influenza High Dose Quad 2021-08-07 00:00:00 Completed [facility] Influenza High Dose Quad 2021-08-07 00:00:00 Completed [facility] Influenza High Dose Quad 2021-08-07 00:00:00 Completed [facility] Influenza High Dose Quad 2021-08-07 00:00:00 Completed [facility] Influenza High Dose Quad 2021-08-07 00:00:00 Completed [facility] Influenza High Dose Quad 2021-08-07 00:00:00 Completed [facility] Influenza High Dose Quad 2021-08-07 00:00:00 Completed [facility] Influenza High Dose Quad 2021-08-07 00:00:00 Completed [facility] Influenza High Dose Quad 2021-08-07 00:00:00 Completed [facility] Influenza High Dose Quad 2021-08-07 00:00:00 Completed Influenza Virus Vaccine 2021-08-07 00:00:00 Completed Influenza High Dose Quad 2021-08-07 00:00:00 Completed Influenza Virus Vaccine 2021-08-07 00:00:00 Completed Influenza High Dose Quad 2021-08-07 00:00:00 Completed Influenza Virus Vaccine 2021-08-07 00:00:00 Completed Influenza High Dose Quad 2021-08-07 00:00:00 Completed Influenza Virus Vaccine 2021-08-07 00:00:00 Completed Influenza High Dose Quad 2021-08-07 00:00:00 Completed Influenza Virus Vaccine 2021-08-07 00:00:00 Completed Influenza High Dose Quad 2021-08-07 00:00:00 Completed Influenza Virus Vaccine 2021-08-07 00:00:00 Completed Influenza High Dose Quad 2021-08-07 00:00:00 Completed Influenza Virus Vaccine 2021-08-07 00:00:00 Completed Influenza High Dose Quad 2021-08-07 00:00:00 Completed [facility] Influenza Virus Vaccine 2021-08-07 00:00:00 Completed Influenza High Dose Quad 2021-08-07 00:00:00 Completed [facility] Influenza High Dose Quad 2021-08-07 00:00:00 Completed [facility] Influenza High Dose Quad 2021-08-07 00:00:00 Completed [facility] Influenza High Dose Quad 2021-08-07 00:00:00 Completed [facility] Influenza High Dose Quad 2021-08-07 00:00:00 Completed [facility] Influenza High Dose Quad 2021-08-07 00:00:00 Completed [facility] Influenza High Dose Quad 2021-08-07 00:00:00 Completed [facility] Influenza High Dose Quad 2021-08-07 00:00:00 Completed [facility] Influenza High Dose Quad 2021-08-07 00:00:00 Completed [facility] SARS-COV-2 COVID-19 MODERNA 12+ YRS VACCINE 2021-01-14 00:00:00 Completed [facility] SARS-COV-2 COVID-19 MODERNA 12+ YRS VACCINE 2021-01-14 00:00:00 Completed [facility] SARS-COV-2 COVID-19 MODERNA 12+ YRS VACCINE 2021-01-14 00:00:00 Completed [facility] SARS-COV-2 COVID-19 MODERNA 12+ YRS VACCINE 2021-01-14 00:00:00 Completed [facility] SARS-COV-2 COVID-19 MODERNA 12+ YRS VACCINE 2021-01-14 00:00:00 Completed [facility] SARS-COV-2 COVID-19 MODERNA 12+ YRS VACCINE 2021-01-14 00:00:00 Completed [facility] SARS-COV-2 COVID-19 MODERNA 12+ YRS VACCINE 2021-01-14 00:00:00 Completed [facility] SARS-COV-2 COVID-19 MODERNA 12+ YRS VACCINE 2021-01-14 00:00:00 Completed [facility] SARS-COV-2 COVID-19 MODERNA 12+ YRS VACCINE 2021-01-14 00:00:00 Completed [facility] SARS-COV-2 COVID-19 MODERNA 12+ YRS VACCINE 2021-01-14 00:00:00 Completed [facility] SARS-COV-2 COVID-19 MODERNA 12+ YRS VACCINE 2021-01-14 00:00:00 Completed [facility] SARS-COV-2 COVID-19 MODERNA 12+ YRS VACCINE 2021-01-14 00:00:00 Completed [facility] SARS-COV-2 COVID-19 MODERNA 12+ YRS VACCINE 2021-01-14 00:00:00 Completed [facility] SARS-COV-2 COVID-19 MODERNA 12+ YRS VACCINE 2021-01-14 00:00:00 Completed [facility] SARS-COV-2 COVID-19 MODERNA 12+ YRS VACCINE 2021-01-14 00:00:00 Completed [facility] SARS-COV-2 COVID-19 MODERNA 12+ YRS VACCINE 2021-01-14 00:00:00 Completed [facility] SARS-COV-2 COVID-19 MODERNA 12+ YRS VACCINE 2021-01-14 00:00:00 Completed [facility] SARS-COV-2 COVID-19 MODERNA 12+ YRS VACCINE 2021-01-14 00:00:00 Completed [facility] SARS-COV-2 COVID-19 MODERNA 12+ YRS VACCINE 2021-01-14 00:00:00 Completed [facility] SARS-COV-2 COVID-19 MODERNA 12+ YRS VACCINE 2021-01-14 00:00:00 Completed [facility] SARS-COV-2 COVID-19 MODERNA 12+ YRS VACCINE 2021-01-14 00:00:00 Completed [facility] SARS-COV-2 COVID-19 MODERNA 12+ YRS VACCINE 2021-01-14 00:00:00 Completed [facility] SARS-COV-2 COVID-19 MODERNA 12+ YRS VACCINE 2021-01-14 00:00:00 Completed [facility] SARS-COV-2 COVID-19 MODERNA 12+ YRS VACCINE 2021-01-14 00:00:00 Completed [facility] SARS-COV-2 COVID-19 MODERNA 12+ YRS VACCINE 2021-01-14 00:00:00 Completed [facility] SARS-COV-2 COVID-19 MODERNA 12+ YRS VACCINE 2021-01-14 00:00:00 Completed [facility] SARS-COV-2 COVID-19 MODERNA 12+ YRS VACCINE 2021-01-14 00:00:00 Completed [facility] SARS-COV-2 COVID-19 MODERNA 12+ YRS VACCINE 2021-01-14 00:00:00 Completed [facility] SARS-COV-2 COVID-19 MODERNA 12+ YRS VACCINE 2021-01-14 00:00:00 Completed [facility] SARS-COV-2 COVID-19 MODERNA 12+ YRS VACCINE 2021-01-14 00:00:00 Completed [facility] SARS-COV-2 COVID-19 MODERNA 12+ YRS VACCINE 2021-01-14 00:00:00 Completed [facility] SARS-COV-2 COVID-19 MODERNA 12+ YRS VACCINE 2021-01-14 00:00:00 Completed [facility] SARS-COV-2 COVID-19 MODERNA 12+ YRS VACCINE 2021-01-14 00:00:00 Completed [facility] SARS-COV-2 COVID-19 MODERNA 12+ YRS VACCINE 2021-01-14 00:00:00 Completed [facility] SARS-COV-2 COVID-19 MODERNA 12+ YRS VACCINE 2021-01-14 00:00:00 Completed [facility] SARS-COV-2 COVID-19 MODERNA 12+ YRS VACCINE 2021-01-14 00:00:00 Completed [facility] SARS-COV-2 COVID-19 MODERNA 12+ YRS VACCINE 2021-01-14 00:00:00 Completed [facility] SARS-COV-2 COVID-19 MODERNA 12+ YRS VACCINE 2021-01-14 00:00:00 Completed [facility] SARS-COV-2 COVID-19 MODERNA 12+ YRS VACCINE 2021-01-14 00:00:00 Completed [facility] SARS-COV-2 COVID-19 MODERNA 12+ YRS VACCINE 2021-01-14 00:00:00 Completed [facility] SARS-COV-2 COVID-19 MODERNA 12+ YRS VACCINE 2021-01-14 00:00:00 Completed [facility] SARS-COV-2 COVID-19 MODERNA VACCINE 2021-01-14 00:00:00 Completed [facility] SARS-COV-2 COVID-19 MODERNA 12+ YRS VACCINE 2021-01-14 00:00:00 Completed [facility] SARS-COV-2 COVID-19 MODERNA 12+ YRS VACCINE 2021-01-14 00:00:00 Completed [facility] SARS-COV-2 COVID-19 MODERNA 12+ YRS VACCINE 2021-01-14 00:00:00 Completed [facility] SARS-COV-2 COVID-19 MODERNA 12+ YRS VACCINE 2021-01-14 00:00:00 Completed [facility] SARS-COV-2 COVID-19 MODERNA 12+ YRS VACCINE 2021-01-14 00:00:00 Completed [facility] SARS-COV-2 COVID-19 MODERNA 12+ YRS VACCINE 2021-01-14 00:00:00 Completed [facility] SARS-COV-2 COVID-19 MODERNA 12+ YRS VACCINE 2021-01-14 00:00:00 Completed [facility] SARS-COV-2 COVID-19 MODERNA 12+ YRS VACCINE 2021-01-14 00:00:00 Completed [facility] SARS-COV-2 COVID-19 MODERNA 12+ YRS VACCINE 2020-12-17 00:00:00 Completed [facility] SARS-COV-2 COVID-19 MODERNA 12+ YRS VACCINE 2020-12-17 00:00:00 Completed [facility] SARS-COV-2 COVID-19 MODERNA 12+ YRS VACCINE 2020-12-17 00:00:00 Completed [facility] SARS-COV-2 COVID-19 MODERNA 12+ YRS VACCINE 2020-12-17 00:00:00 Completed [facility] SARS-COV-2 COVID-19 MODERNA 12+ YRS VACCINE 2020-12-17 00:00:00 Completed [facility] SARS-COV-2 COVID-19 MODERNA 12+ YRS VACCINE 2020-12-17 00:00:00 Completed [facility] SARS-COV-2 COVID-19 MODERNA 12+ YRS VACCINE 2020-12-17 00:00:00 Completed [facility] SARS-COV-2 COVID-19 MODERNA 12+ YRS VACCINE 2020-12-17 00:00:00 Completed [facility] SARS-COV-2 COVID-19 MODERNA 12+ YRS VACCINE 2020-12-17 00:00:00 Completed [facility] SARS-COV-2 COVID-19 MODERNA 12+ YRS VACCINE 2020-12-17 00:00:00 Completed [facility] SARS-COV-2 COVID-19 MODERNA 12+ YRS VACCINE 2020-12-17 00:00:00 Completed [facility] SARS-COV-2 COVID-19 MODERNA 12+ YRS VACCINE 2020-12-17 00:00:00 Completed [facility] SARS-COV-2 COVID-19 MODERNA 12+ YRS VACCINE 2020-12-17 00:00:00 Completed [facility] SARS-COV-2 COVID-19 MODERNA 12+ YRS VACCINE 2020-12-17 00:00:00 Completed [facility] SARS-COV-2 COVID-19 MODERNA 12+ YRS VACCINE 2020-12-17 00:00:00 Completed [facility] SARS-COV-2 COVID-19 MODERNA 12+ YRS VACCINE 2020-12-17 00:00:00 Completed [facility] SARS-COV-2 COVID-19 MODERNA 12+ YRS VACCINE 2020-12-17 00:00:00 Completed [facility] SARS-COV-2 COVID-19 MODERNA 12+ YRS VACCINE 2020-12-17 00:00:00 Completed [facility] SARS-COV-2 COVID-19 MODERNA 12+ YRS VACCINE 2020-12-17 00:00:00 Completed [facility] SARS-COV-2 COVID-19 MODERNA 12+ YRS VACCINE 2020-12-17 00:00:00 Completed [facility] SARS-COV-2 COVID-19 MODERNA 12+ YRS VACCINE 2020-12-17 00:00:00 Completed [facility] SARS-COV-2 COVID-19 MODERNA 12+ YRS VACCINE 2020-12-17 00:00:00 Completed [facility] SARS-COV-2 COVID-19 MODERNA 12+ YRS VACCINE 2020-12-17 00:00:00 Completed [facility] SARS-COV-2 COVID-19 MODERNA 12+ YRS VACCINE 2020-12-17 00:00:00 Completed [facility] SARS-COV-2 COVID-19 MODERNA 12+ YRS VACCINE 2020-12-17 00:00:00 Completed [facility] SARS-COV-2 COVID-19 MODERNA 12+ YRS VACCINE 2020-12-17 00:00:00 Completed [facility] SARS-COV-2 COVID-19 MODERNA 12+ YRS VACCINE 2020-12-17 00:00:00 Completed [facility] SARS-COV-2 COVID-19 MODERNA 12+ YRS VACCINE 2020-12-17 00:00:00 Completed [facility] SARS-COV-2 COVID-19 MODERNA 12+ YRS VACCINE 2020-12-17 00:00:00 Completed [facility] SARS-COV-2 COVID-19 MODERNA 12+ YRS VACCINE 2020-12-17 00:00:00 Completed [facility] SARS-COV-2 COVID-19 MODERNA 12+ YRS VACCINE 2020-12-17 00:00:00 Completed [facility] SARS-COV-2 COVID-19 MODERNA 12+ YRS VACCINE 2020-12-17 00:00:00 Completed [facility] SARS-COV-2 COVID-19 MODERNA 12+ YRS VACCINE 2020-12-17 00:00:00 Completed [facility] SARS-COV-2 COVID-19 MODERNA 12+ YRS VACCINE 2020-12-17 00:00:00 Completed [facility] SARS-COV-2 COVID-19 MODERNA 12+ YRS VACCINE 2020-12-17 00:00:00 Completed [facility] SARS-COV-2 COVID-19 MODERNA 12+ YRS VACCINE 2020-12-17 00:00:00 Completed [facility] SARS-COV-2 COVID-19 MODERNA 12+ YRS VACCINE 2020-12-17 00:00:00 Completed [facility] SARS-COV-2 COVID-19 MODERNA 12+ YRS VACCINE 2020-12-17 00:00:00 Completed [facility] SARS-COV-2 COVID-19 MODERNA 12+ YRS VACCINE 2020-12-17 00:00:00 Completed [facility] SARS-COV-2 COVID-19 MODERNA 12+ YRS VACCINE 2020-12-17 00:00:00 Completed [facility] SARS-COV-2 COVID-19 MODERNA 12+ YRS VACCINE 2020-12-17 00:00:00 Completed [facility] SARS-COV-2 COVID-19 MODERNA VACCINE 2020-12-17 00:00:00 Completed [facility] SARS-COV-2 COVID-19 MODERNA 12+ YRS VACCINE 2020-12-17 00:00:00 Completed [facility] SARS-COV-2 COVID-19 MODERNA 12+ YRS VACCINE 2020-12-17 00:00:00 Completed [facility] SARS-COV-2 COVID-19 MODERNA 12+ YRS VACCINE 2020-12-17 00:00:00 Completed [facility] SARS-COV-2 COVID-19 MODERNA 12+ YRS VACCINE 2020-12-17 00:00:00 Completed [facility] SARS-COV-2 COVID-19 MODERNA 12+ YRS VACCINE 2020-12-17 00:00:00 Completed [facility] SARS-COV-2 COVID-19 MODERNA 12+ YRS VACCINE 2020-12-17 00:00:00 Completed [facility] SARS-COV-2 COVID-19 MODERNA 12+ YRS VACCINE 2020-12-17 00:00:00 Completed [facility] SARS-COV-2 COVID-19 MODERNA 12+ YRS VACCINE 2020-12-17 00:00:00 Completed [facility] Influenza High Dose Quad 2020-08-11 00:00:00 Completed [facility] Influenza High Dose Quad 2020-08-11 00:00:00 Completed [facility] Influenza High Dose Quad 2020-08-11 00:00:00 Completed [facility] Influenza High Dose Quad 2020-08-11 00:00:00 Completed [facility] Influenza High Dose Quad 2020-08-11 00:00:00 Completed [facility] Influenza High Dose Quad 2020-08-11 00:00:00 Completed [facility] Influenza High Dose Quad 2020-08-11 00:00:00 Completed [facility] Influenza High Dose Quad 2020-08-11 00:00:00 Completed [facility] Influenza High Dose Quad 2020-08-11 00:00:00 Completed [facility] Influenza High Dose Quad 2020-08-11 00:00:00 Completed [facility] Influenza High Dose Quad 2020-08-11 00:00:00 Completed [facility] Influenza High Dose Quad 2020-08-11 00:00:00 Completed [facility] Influenza High Dose Quad 2020-08-11 00:00:00 Completed [facility] Influenza High Dose Quad 2020-08-11 00:00:00 Completed [facility] Influenza High Dose Quad 2020-08-11 00:00:00 Completed [facility] Influenza High Dose Quad 2020-08-11 00:00:00 Completed [facility] Influenza High Dose Quad 2020-08-11 00:00:00 Completed [facility] Influenza High Dose Quad 2020-08-11 00:00:00 Completed [facility] Influenza High Dose Quad 2020-08-11 00:00:00 Completed [facility] Influenza High Dose Quad 2020-08-11 00:00:00 Completed [facility] Influenza High Dose Quad 2020-08-11 00:00:00 Completed [facility] Influenza High Dose Quad 2020-08-11 00:00:00 Completed [facility] Influenza High Dose Quad 2020-08-11 00:00:00 Completed [facility] Influenza High Dose Quad 2020-08-11 00:00:00 Completed [facility] Influenza High Dose Quad 2020-08-11 00:00:00 Completed [facility] Influenza High Dose Quad 2020-08-11 00:00:00 Completed [facility] Influenza High Dose Quad 2020-08-11 00:00:00 Completed [facility] Influenza High Dose Quad 2020-08-11 00:00:00 Completed [facility] Influenza High Dose Quad 2020-08-11 00:00:00 Completed [facility] Influenza High Dose Quad 2020-08-11 00:00:00 Completed [facility] Influenza High Dose Quad 2020-08-11 00:00:00 Completed [facility] Influenza High Dose Quad 2020-08-11 00:00:00 Completed [facility] Influenza High Dose Quad 2020-08-11 00:00:00 Completed [facility] Influenza High Dose Quad 2020-08-11 00:00:00 Completed Influenza Virus Vaccine 2020-08-11 00:00:00 Completed [facility] Influenza High Dose Quad 2020-08-11 00:00:00 Completed Influenza Virus Vaccine 2020-08-11 00:00:00 Completed [facility] Influenza High Dose Quad 2020-08-11 00:00:00 Completed Influenza Virus Vaccine 2020-08-11 00:00:00 Completed [facility] Influenza High Dose Quad 2020-08-11 00:00:00 Completed Influenza Virus Vaccine 2020-08-11 00:00:00 Completed [facility] Influenza High Dose Quad 2020-08-11 00:00:00 Completed Influenza Virus Vaccine 2020-08-11 00:00:00 Completed [facility] Influenza High Dose Quad 2020-08-11 00:00:00 Completed Influenza Virus Vaccine 2020-08-11 00:00:00 Completed [facility] Influenza High Dose Quad 2020-08-11 00:00:00 Completed Influenza Virus Vaccine 2020-08-11 00:00:00 Completed [facility] Influenza High Dose Quad 2020-08-11 00:00:00 Completed Influenza Virus Vaccine 2020-08-11 00:00:00 Completed [facility] Influenza High Dose Quad 2020-08-11 00:00:00 Completed [facility] Influenza High Dose Quad 2020-08-11 00:00:00 Completed [facility] Influenza High Dose Quad 2020-08-11 00:00:00 Completed [facility] Influenza High Dose Quad 2020-08-11 00:00:00 Completed [facility] Influenza High Dose Quad 2020-08-11 00:00:00 Completed [facility] Influenza High Dose Quad 2020-08-11 00:00:00 Completed [facility] Influenza High Dose Quad 2020-08-11 00:00:00 Completed [facility] Influenza High Dose Quad 2020-08-11 00:00:00 Completed [facility] Influenza High Dose Quad 2020-08-11 00:00:00 Completed [facility] Twinrix (hep a/hep b) 2019-05-19 00:00:00 Completed [facility] Pneumococcal 13 Conjugate, PCV13 (Prevnar 13) 2019-05-19 00:00:00 Completed [facility] Twinrix (hep a/hep b) 2019-05-19 00:00:00 Completed [facility] Pneumococcal 13 Conjugate, PCV13 (Prevnar 13) 2019-05-19 00:00:00 Completed [facility] Twinrix (hep a/hep b) 2019-05-19 00:00:00 Completed [facility] Pneumococcal 13 Conjugate, PCV13 (Prevnar 13) 2019-05-19 00:00:00 Completed [facility] Twinrix (hep a/hep b) 2019-05-19 00:00:00 Completed [facility] Pneumococcal 13 Conjugate, PCV13 (Prevnar 13) 2019-05-19 00:00:00 Completed [facility] Twinrix (hep a/hep b) 2019-05-19 00:00:00 Completed [facility] Pneumococcal 13 Conjugate, PCV13 (Prevnar 13) 2019-05-19 00:00:00 Completed [facility] Twinrix (hep a/hep b) 2019-05-19 00:00:00 Completed [facility] Pneumococcal 13 Conjugate, PCV13 (Prevnar 13) 2019-05-19 00:00:00 Completed [facility] Twinrix (hep a/hep b) 2019-05-19 00:00:00 Completed [facility] Pneumococcal 13 Conjugate, PCV13 (Prevnar 13) 2019-05-19 00:00:00 Completed [facility] Twin[facility] (hep a/hep b) 2019-05-19 00:00:00 Completed [facility] Pneumococcal 13 Conjugate, PCV13 (Prevnar 13) 2019-05-19 00:00:00 Completed [facility] Twin[facility] (hep a/hep b) 2019-05-19 00:00:00 Completed [facility] Pneumococcal 13 Conjugate, PCV13 (Prevnar 13) 2019-05-19 00:00:00 Completed [facility] Twinrix (hep a/hep b) 2019-05-19 00:00:00 Completed [facility] Pneumococcal 13 Conjugate, PCV13 (Prevnar 13) 2019-05-19 00:00:00 Completed [facility] Twinrix (hep a/hep b) 2019-05-19 00:00:00 Completed [facility] Pneumococcal 13 Conjugate, PCV13 (Prevnar 13) 2019-05-19 00:00:00 Completed [facility] Twinrix (hep a/hep b) 2019-05-19 00:00:00 Completed [facility] Pneumococcal 13 Conjugate, PCV13 (Prevnar 13) 2019-05-19 00:00:00 Completed [facility] Twin[facility] (hep a/hep b) 2019-05-19 00:00:00 Completed [facility] Pneumococcal 13 Conjugate, PCV13 (Prevnar 13) 2019-05-19 00:00:00 Completed [facility] Twinrix (hep a/hep b) 2019-05-19 00:00:00 Completed [facility] Pneumococcal 13 Conjugate, PCV13 (Prevnar 13) 2019-05-19 00:00:00 Completed [facility] Twinrix (hep a/hep b) 2019-05-19 00:00:00 Completed [facility] Pneumococcal 13 Conjugate, PCV13 (Prevnar 13) 2019-05-19 00:00:00 Completed [facility] Twinrix (hep a/hep b) 2019-05-19 00:00:00 Completed [facility] Pneumococcal 13 Conjugate, PCV13 (Prevnar 13) 2019-05-19 00:00:00 Completed [facility] Twinrix (hep a/hep b) 2019-05-19 00:00:00 Completed [facility] Pneumococcal 13 Conjugate, PCV13 (Prevnar 13) 2019-05-19 00:00:00 Completed [facility] Twinrix (hep a/hep b) 2019-05-19 00:00:00 Completed [facility] Pneumococcal 13 Conjugate, PCV13 (Prevnar 13) 2019-05-19 00:00:00 Completed [facility] Twinrix (hep a/hep b) 2019-05-19 00:00:00 Completed [facility] Pneumococcal 13 Conjugate, PCV13 (Prevnar 13) 2019-05-19 00:00:00 Completed [facility] Twinrix (hep a/hep b) 2019-05-19 00:00:00 Completed [facility] Pneumococcal 13 Conjugate, PCV13 (Prevnar 13) 2019-05-19 00:00:00 Completed [facility] Twin[facility] (hep a/hep b) 2019-05-19 00:00:00 Completed [facility] Pneumococcal 13 Conjugate, PCV13 (Prevnar 13) 2019-05-19 00:00:00 Completed [facility] Twinrix (hep a/hep b) 2019-05-19 00:00:00 Completed [facility] Pneumococcal 13 Conjugate, PCV13 (Prevnar 13) 2019-05-19 00:00:00 Completed [facility] Twinrix (hep a/hep b) 2019-05-19 00:00:00 Completed [facility] Pneumococcal 13 Conjugate, PCV13 (Prevnar 13) 2019-05-19 00:00:00 Completed [facility] Twinrix (hep a/hep b) 2019-05-19 00:00:00 Completed [facility] Pneumococcal 13 Conjugate, PCV13 (Prevnar 13) 2019-05-19 00:00:00 Completed [facility] Twin[facility] (hep a/hep b) 2019-05-19 00:00:00 Completed [facility] Pneumococcal 13 Conjugate, PCV13 (Prevnar 13) 2019-05-19 00:00:00 Completed [facility] Twin[facility] (hep a/hep b) 2019-05-19 00:00:00 Completed [facility] Pneumococcal 13 Conjugate, PCV13 (Prevnar 13) 2019-05-19 00:00:00 Completed [facility] Twin[facility] (hep a/hep b) 2019-05-19 00:00:00 Completed [facility] Pneumococcal 13 Conjugate, PCV13 (Prevnar 13) 2019-05-19 00:00:00 Completed [facility] Twin[facility] (hep a/hep b) 2019-05-19 00:00:00 Completed [facility] Pneumococcal 13 Conjugate, PCV13 (Prevnar 13) 2019-05-19 00:00:00 Completed [facility] Twin[facility] (hep a/hep b) 2019-05-19 00:00:00 Completed [facility] Pneumococcal 13 Conjugate, PCV13 (Prevnar 13) 2019-05-19 00:00:00 Completed [facility] Twinrix (hep a/hep b) 2019-05-19 00:00:00 Completed [facility] Pneumococcal 13 Conjugate, PCV13 (Prevnar 13) 2019-05-19 00:00:00 Completed [facility] Twinrix (hep a/hep b) 2019-05-19 00:00:00 Completed [facility] Pneumococcal 13 Conjugate, PCV13 (Prevnar 13) 2019-05-19 00:00:00 Completed [facility] Twinrix (hep a/hep b) 2019-05-19 00:00:00 Completed [facility] Pneumococcal 13 Conjugate, PCV13 (Prevnar 13) 2019-05-19 00:00:00 Completed [facility] Twin[facility] (hep a/hep b) 2019-05-19 00:00:00 Completed [facility] Pneumococcal 13 Conjugate, PCV13 (Prevnar 13) 2019-05-19 00:00:00 Completed [facility] Twinrix (hep a/hep b) 2019-05-19 00:00:00 Completed [facility] Pneumococcal 13 Conjugate, PCV13 (Prevnar 13) 2019-05-19 00:00:00 Completed Twinrix (hep a/hep b) 2019-05-19 00:00:00 Completed [facility] Pneumococcal 13 Conjugate, PCV13 (Prevnar 13) 2019-05-19 00:00:00 Completed Twinrix (hep a/hep b) 2019-05-19 00:00:00 Completed [facility] Pneumococcal 13 Conjugate, PCV13 (Prevnar 13) 2019-05-19 00:00:00 Completed Twinrix (hep a/hep b) 2019-05-19 00:00:00 Completed [facility] Pneumococcal 13 Conjugate, PCV13 (Prevnar 13) 2019-05-19 00:00:00 Completed Twinrix (hep a/hep b) 2019-05-19 00:00:00 Completed [facility] Pneumococcal 13 Conjugate, PCV13 (Prevnar 13) 2019-05-19 00:00:00 Completed Twinrix (hep a/hep b) 2019-05-19 00:00:00 Completed [facility] Pneumococcal 13 Conjugate, PCV13 (Prevnar 13) 2019-05-19 00:00:00 Completed Twinrix (hep a/hep b) 2019-05-19 00:00:00 Completed [facility] Pneumococcal 13 Conjugate, PCV13 (Prevnar 13) 2019-05-19 00:00:00 Completed Twinrix (hep a/hep b) 2019-05-19 00:00:00 Completed [facility] Pneumococcal 13 Conjugate, PCV13 (Prevnar 13) 2019-05-19 00:00:00 Completed Twin[facility] (hep a/hep b) 2019-05-19 00:00:00 Completed [facility] Pneumococcal 13 Conjugate, PCV13 (Prevnar 13) 2019-05-19 00:00:00 Completed [facility] Twin[facility] (hep a/hep b) 2019-05-19 00:00:00 Completed [facility] Pneumococcal 13 Conjugate, PCV13 (Prevnar 13) 2019-05-19 00:00:00 Completed [facility] Twinrix (hep a/hep b) 2019-05-19 00:00:00 Completed [facility] Pneumococcal 13 Conjugate, PCV13 (Prevnar 13) 2019-05-19 00:00:00 Completed [facility] Twin[facility] (hep a/hep b) 2019-05-19 00:00:00 Completed [facility] Pneumococcal 13 Conjugate, PCV13 (Prevnar 13) 2019-05-19 00:00:00 Completed [facility] Twin[facility] (hep a/hep b) 2019-05-19 00:00:00 Completed [facility] Pneumococcal 13 Conjugate, PCV13 (Prevnar 13) 2019-05-19 00:00:00 Completed [facility] Twin[facility] (hep a/hep b) 2019-05-19 00:00:00 Completed [facility] Pneumococcal 13 Conjugate, PCV13 (Prevnar 13) 2019-05-19 00:00:00 Completed [facility] Twin[facility] (hep a/hep b) 2019-05-19 00:00:00 Completed [facility] Pneumococcal 13 Conjugate, PCV13 (Prevnar 13) 2019-05-19 00:00:00 Completed [facility] Twin[facility] (hep a/hep b) 2019-05-19 00:00:00 Completed [facility] Pneumococcal 13 Conjugate, PCV13 (Prevnar 13) 2019-05-19 00:00:00 Completed [facility] (hep a/hep b) 2019-05-19 00:00:00 Completed [facility] Pneumococcal 13 Conjugate, PCV13 (Prevnar 13) 2019-05-19 00:00:00 Completed [facility] Pneumococcal Polysaccharide, PPSV23 (PNEUMOVAX) 2017-05-29 00:00:00 Completed [facility] Pneumococcal Polysaccharide, PPSV23 (PNEUMOVAX) 2017-05-29 00:00:00 Completed [facility] Pneumococcal Polysaccharide, PPSV23 (PNEUMOVAX) 2017-05-29 00:00:00 Completed [facility] Pneumococcal Polysaccharide, PPSV23 (PNEUMOVAX) 2017-05-29 00:00:00 Completed [facility] Pneumococcal Polysaccharide, PPSV23 (PNEUMOVAX) 2017-05-29 00:00:00 Completed [facility] Pneumococcal Polysaccharide, PPSV23 (PNEUMOVAX) 2017-05-29 00:00:00 Completed [facility] Pneumococcal Polysaccharide, PPSV23 (PNEUMOVAX) 2017-05-29 00:00:00 Completed [facility] Pneumococcal Polysaccharide, PPSV23 (PNEUMOVAX) 2017-05-29 00:00:00 Completed [facility] Pneumococcal Polysaccharide, PPSV23 (PNEUMOVAX) 2017-05-29 00:00:00 Completed [facility] Pneumococcal Polysaccharide, PPSV23 (PNEUMOVAX) 2017-05-29 00:00:00 Completed [facility] Pneumococcal Polysaccharide, PPSV23 (PNEUMOVAX) 2017-05-29 00:00:00 Completed [facility] Pneumococcal Polysaccharide, PPSV23 (PNEUMOVAX) 2017-05-29 00:00:00 Completed [facility] Pneumococcal Polysaccharide, PPSV23 (PNEUMOVAX) 2017-05-29 00:00:00 Completed [facility] Pneumococcal Polysaccharide, PPSV23 (PNEUMOVAX) 2017-05-29 00:00:00 Completed [facility] Pneumococcal Polysaccharide, PPSV23 (PNEUMOVAX) 2017-05-29 00:00:00 Completed [facility] Pneumococcal Polysaccharide, PPSV23 (PNEUMOVAX) 2017-05-29 00:00:00 Completed [facility] Pneumococcal Polysaccharide, PPSV23 (PNEUMOVAX) 2017-05-29 00:00:00 Completed [facility] Pneumococcal Polysaccharide, PPSV23 (PNEUMOVAX) 2017-05-29 00:00:00 Completed [facility] Pneumococcal Polysaccharide, PPSV23 (PNEUMOVAX) 2017-05-29 00:00:00 Completed [facility] Pneumococcal Polysaccharide, PPSV23 (PNEUMOVAX) 2017-05-29 00:00:00 Completed [facility] Pneumococcal Polysaccharide, PPSV23 (PNEUMOVAX) 2017-05-29 00:00:00 Completed [facility] Pneumococcal Polysaccharide, PPSV23 (PNEUMOVAX) 2017-05-29 00:00:00 Completed [facility] Pneumococcal Polysaccharide, PPSV23 (PNEUMOVAX) 2017-05-29 00:00:00 Completed [facility] Pneumococcal Polysaccharide, PPSV23 (PNEUMOVAX) 2017-05-29 00:00:00 Completed [facility] Pneumococcal Polysaccharide, PPSV23 (PNEUMOVAX) 2017-05-29 00:00:00 Completed [facility] Pneumococcal Polysaccharide, PPSV23 (PNEUMOVAX) 2017-05-29 00:00:00 Completed [facility] Pneumococcal Polysaccharide, PPSV23 (PNEUMOVAX) 2017-05-29 00:00:00 Completed [facility] Pneumococcal Polysaccharide, PPSV23 (PNEUMOVAX) 2017-05-29 00:00:00 Completed [facility] Pneumococcal Polysaccharide, PPSV23 (PNEUMOVAX) 2017-05-29 00:00:00 Completed [facility] Pneumococcal Polysaccharide, PPSV23 (PNEUMOVAX) 2017-05-29 00:00:00 Completed [facility] Pneumococcal Polysaccharide, PPSV23 (PNEUMOVAX) 2017-05-29 00:00:00 Completed [facility] Pneumococcal Polysaccharide, PPSV23 (PNEUMOVAX) 2017-05-29 00:00:00 Completed [facility] Pneumococcal Polysaccharide, PPSV23 (PNEUMOVAX) 2017-05-29 00:00:00 Completed [facility] Pneumococcal Polysaccharide, PPSV23 (PNEUMOVAX) 2017-05-29 00:00:00 Completed [facility] Pneumococcal Polysaccharide, PPSV23 (PNEUMOVAX) 2017-05-29 00:00:00 Completed [facility] Pneumococcal Polysaccharide, PPSV23 (PNEUMOVAX) 2017-05-29 00:00:00 Completed [facility] Pneumococcal Polysaccharide, PPSV23 (PNEUMOVAX) 2017-05-29 00:00:00 Completed [facility] Pneumococcal Polysaccharide, PPSV23 (PNEUMOVAX) 2017-05-29 00:00:00 Completed [facility] Pneumococcal Polysaccharide, PPSV23 (PNEUMOVAX) 2017-05-29 00:00:00 Completed [facility] Pneumococcal Polysaccharide, PPSV23 (PNEUMOVAX) 2017-05-29 00:00:00 Completed [facility] Pneumococcal Polysaccharide, PPSV23 (PNEUMOVAX) 2017-05-29 00:00:00 Completed [facility] Pneumococcal Polysaccharide, PPSV23 (PNEUMOVAX) 2017-05-29 00:00:00 Completed [facility] Pneumococcal Polysaccharide, PPSV23 (PNEUMOVAX) 2017-05-29 00:00:00 Completed [facility] Pneumococcal Polysaccharide, PPSV23 (PNEUMOVAX) 2017-05-29 00:00:00 Completed [facility] Pneumococcal Polysaccharide, PPSV23 (PNEUMOVAX) 2017-05-29 00:00:00 Completed [facility] Pneumococcal Polysaccharide, PPSV23 (PNEUMOVAX) 2017-05-29 00:00:00 Completed [facility] Pneumococcal Polysaccharide, PPSV23 (PNEUMOVAX) 2017-05-29 00:00:00 Completed [facility] Pneumococcal Polysaccharide, PPSV23 (PNEUMOVAX) 2017-05-29 00:00:00 Completed [facility] Pneumococcal Polysaccharide, PPSV23 (PNEUMOVAX) 2017-05-29 00:00:00 Completed [facility] Pneumococcal Polysaccharide, PPSV23 (PNEUMOVAX) 2017-05-29 00:00:00 Completed [facility] Pneumococcal Polysaccharide, PPSV23 (PNEUMOVAX) Unknown Completed [facility] SARS-COV-2 COVID-19 MODERNA 12+ YRS VACCINE Unknown Completed [facility] (hep a/hep b) Unknown Completed [facility] Pneumococcal 13 Conjugate, PCV13 (Prevnar 13) Unknown Completed [facility] Influenza High Dose Quad Unknown Completed [facility] Influenza Virus Vaccine,quad Im,preserve Free 65+ (FLUAD) Unknown Completed [facility] Pneumococcal Polysaccharide, PPSV23 (PNEUMOVAX) Unknown Completed [facility] SARS-COV-2 COVID-19 MODERNA 12+ YRS VACCINE Unknown Completed [facility] (hep a/hep b) Unknown Completed [facility] Pneumococcal 13 Conjugate, PCV13 (Prevnar 13) Unknown Completed [facility] Influenza High Dose Quad Unknown Completed [facility] Influenza Virus Vaccine,quad Im,preserve Free 65+ (FLUAD) Unknown Completed [facility] Pneumococcal Polysaccharide, PPSV23 (PNEUMOVAX) Unknown Completed [facility] SARS-COV-2 COVID-19 MODERNA 12+ YRS VACCINE Unknown Completed [facility] (hep a/hep b) Unknown Completed [facility] Pneumococcal 13 Conjugate, PCV13 (Prevnar 13) Unknown Completed [facility] Influenza High Dose Quad Unknown Completed [facility] Influenza Virus Vaccine,quad Im,preserve Free 65+ (FLUAD) Unknown Completed [facility] Pneumococcal Polysaccharide, PPSV23 (PNEUMOVAX) Unknown Completed [facility] SARS-COV-2 COVID-19 MODERNA 12+ YRS VACCINE Unknown Completed [facility] (hep a/hep b) Unknown Completed [facility] Pneumococcal 13 Conjugate, PCV13 (Prevnar 13) Unknown Completed [facility] Influenza High Dose Quad Unknown Completed [facility] Influenza Virus Vaccine,quad Im,preserve Free 65+ (FLUAD) Unknown Completed [facility] Pneumococcal Polysaccharide, PPSV23 (PNEUMOVAX) Unknown Completed [facility] SARS-COV-2 COVID-19 MODERNA 12+ YRS VACCINE Unknown Completed [facility] (hep a/hep b) Unknown Completed [facility] Pneumococcal 13 Conjugate, PCV13 (Prevnar 13) Unknown Completed [facility] Influenza High Dose Quad Unknown Completed [facility] Influenza Virus Vaccine,quad Im,preserve Free 65+ (FLUAD) Unknown Completed [facility] Pneumococcal Polysaccharide, PPSV23 (PNEUMOVAX) Unknown Completed [facility] SARS-COV-2 COVID-19 MODERNA 12+ YRS VACCINE Unknown Completed [facility] (hep a/hep b) Unknown Completed [facility] Pneumococcal 13 Conjugate, PCV13 (Prevnar 13) Unknown Completed [facility] Influenza High Dose Quad Unknown Completed [facility] Influenza Virus Vaccine,quad Im,preserve Free 65+ (FLUAD) Unknown Completed [facility] Pneumococcal Polysaccharide, PPSV23 (PNEUMOVAX) Unknown Completed [facility] Twinrix (hep a/hep b) Unknown Completed [facility] Pneumococcal 13 Conjugate, PCV13 (Prevnar 13) Unknown Completed [facility] Influenza Virus Vaccine,quad Im,preserve Free 65+ (FLUAD) Unknown Completed [facility] SARS-COV-2 COVID-19 MODERNA 12+ YRS VACCINE Unknown Completed [facility] Influenza High Dose Quad Unknown Completed [facility] Pneumococcal Polysaccharide, PPSV23 (PNEUMOVAX) Unknown Completed [facility] SARS-COV-2 COVID-19 MODERNA 12+ YRS VACCINE Unknown Completed [facility] (hep a/hep b) Unknown Completed [facility] Pneumococcal 13 Conjugate, PCV13 (Prevnar 13) Unknown Completed [facility] Influenza High Dose Quad Unknown Completed [facility] Influenza Virus Vaccine,quad Im,preserve Free 65+ (FLUAD) Unknown Completed [facility] Pneumococcal Polysaccharide, PPSV23 (PNEUMOVAX) Unknown Completed [facility] SARS-COV-2 COVID-19 MODERNA 12+ YRS VACCINE Unknown Completed [facility] (hep a/hep b) Unknown Completed [facility] Pneumococcal 13 Conjugate, PCV13 (Prevnar 13) Unknown Completed [facility] Influenza High Dose Quad Unknown Completed [facility] Influenza Virus Vaccine,quad Im,preserve Free 65+ (FLUAD) Unknown Completed [facility] Pneumococcal Polysaccharide, PPSV23 (PNEUMOVAX) Unknown Completed [facility] SARS-COV-2 COVID-19 MODERNA 12+ YRS VACCINE Unknown Completed [facility] (hep a/hep b) Unknown Completed [facility] Pneumococcal 13 Conjugate, PCV13 (Prevnar 13) Unknown Completed [facility] Influenza High Dose Quad Unknown Completed [facility] Influenza Virus Vaccine,quad Im,preserve Free 65+ (FLUAD) Unknown Completed [facility] Pneumococcal Polysaccharide, PPSV23 (PNEUMOVAX) Unknown Completed [facility] SARS-COV-2 COVID-19 MODERNA 12+ YRS VACCINE Unknown Completed [facility] (hep a/hep b) Unknown Completed [facility] Pneumococcal 13 Conjugate, PCV13 (Prevnar 13) Unknown Completed [facility] Influenza High Dose Quad Unknown Completed [facility] Influenza Virus Vaccine,quad Im,preserve Free 65+ (FLUAD) Unknown Completed [facility] Pneumococcal Polysaccharide, PPSV23 (PNEUMOVAX) Unknown Completed [facility] SARS-COV-2 COVID-19 MODERNA 12+ YRS VACCINE Unknown Completed [facility] (hep a/hep b) Unknown Completed [facility] Pneumococcal 13 Conjugate, PCV13 (Prevnar 13) Unknown Completed [facility] Influenza High Dose Quad Unknown Completed [facility] Influenza Virus Vaccine,quad Im,preserve Free 65+ (FLUAD) Unknown Completed [facility] Pneumococcal Polysaccharide, PPSV23 (PNEUMOVAX) Unknown Completed [facility] SARS-COV-2 COVID-19 MODERNA 12+ YRS VACCINE Unknown Completed [facility] (hep a/hep b) Unknown Completed [facility] Pneumococcal 13 Conjugate, PCV13 (Prevnar 13) Unknown Completed [facility] Influenza High Dose Quad Unknown Completed [facility] Influenza Virus Vaccine,quad Im,preserve Free 65+ (FLUAD) Unknown Completed [facility] Pneumococcal Polysaccharide, PPSV23 (PNEUMOVAX) Unknown Completed [facility] SARS-COV-2 COVID-19 MODERNA 12+ YRS VACCINE Unknown Completed [facility] (hep a/hep b) Unknown Completed [facility] Pneumococcal 13 Conjugate, PCV13 (Prevnar 13) Unknown Completed [facility] Influenza High Dose Quad Unknown Completed [facility] Influenza Virus Vaccine,quad Im,preserve Free 65+ (FLUAD) Unknown Completed [facility] Pneumococcal Polysaccharide, PPSV23 (PNEUMOVAX) Unknown Completed [facility] (hep a/hep b) Unknown Completed [facility] Pneumococcal 13 Conjugate, PCV13 (Prevnar 13) Unknown Completed [facility] Influenza Virus Vaccine,quad Im,preserve Free 65+ (FLUAD) Unknown Completed [facility] Influenza High Dose Unknown Completed [facility] SARS-COV-2 COVID 19 SPIKE PROTEIN VACCINE , , 50 mcg/0.5 ml, IM MODERNA Unknown Completed [facility] SARS-COV-2 COVID-19 MODERNA 12+ YRS VACCINE Unknown Completed [facility] Influenza High Dose Quad Unknown Completed [facility] Pneumococcal Polysaccharide, PPSV23 (PNEUMOVAX) Unknown Completed [facility] SARS-COV-2 COVID-19 MODERNA 12+ YRS VACCINE Unknown Completed [facility] (hep a/hep b) Unknown Completed [facility] Pneumococcal 13 Conjugate, PCV13 (Prevnar 13) Unknown Completed [facility] Influenza High Dose Quad Unknown Completed [facility] Influenza Virus Vaccine,quad Im,preserve Free 65+ (FLUAD) Unknown Completed [facility] Influenza High Dose Unknown Completed [facility] SARS-COV-2 COVID 19 SPIKE PROTEIN VACCINE , 50 mcg/0.5 ml, IM MODERNA Unknown Completed [facility] Pneumococcal Polysaccharide, PPSV23 (PNEUMOVAX) Unknown Completed [facility] SARS-COV-2 COVID-19 MODERNA 12+ YRS VACCINE Unknown Completed [facility] Twinrix (hep a/hep b) Unknown Completed [facility] Pneumococcal 13 Conjugate, PCV13 (Prevnar 13) Unknown Completed [facility] Influenza High Dose Quad Unknown Completed [facility] Influenza Virus Vaccine,quad Im,preserve Free 65+ (FLUAD) Unknown Completed [facility] Influenza High Dose Unknown Completed [facility] SARS-COV-2 COVID 19 SPIKE PROTEIN VACCINE , , 50 mcg/0.5 ml, IM MODERNA Unknown Completed [facility] Pneumococcal Polysaccharide, PPSV23 (PNEUMOVAX) Unknown Completed [facility] SARS-COV-2 COVID-19 MODERNA 12+ YRS VACCINE Unknown Completed [facility] Twinrix (hep a/hep b) Unknown Completed [facility] Pneumococcal 13 Conjugate, PCV13 (Prevnar 13) Unknown Completed [facility] Influenza High Dose Quad Unknown Completed [facility] Influenza Virus Vaccine,quad Im,preserve Free 65+ (FLUAD) Unknown Completed [facility] Influenza High Dose Unknown Completed [facility] SARS-COV-2 COVID 19 SPIKE PROTEIN VACCINE 12, , 50 mcg/0.5 ml, IM MODERNA Unknown Completed [facility] Pneumococcal Polysaccharide, PPSV23 (PNEUMOVAX) Unknown Completed [facility] SARS-COV-2 COVID-19 MODERNA 12+ YRS VACCINE Unknown Completed [facility] Twinrix (hep a/hep b) Unknown Completed [facility] Pneumococcal 13 Conjugate, PCV13 (Prevnar 13) Unknown Completed [facility] Influenza High Dose Quad Unknown Completed [facility] Influenza Virus Vaccine,quad Im,preserve Free 65+ (FLUAD) Unknown Completed [facility] Influenza High Dose Unknown Completed [facility] SARS-COV-2 COVID 19 SPIKE PROTEIN VACCINE , , 50 mcg/0.5 ml, IM MODERNA Unknown Completed [facility] Pneumococcal Polysaccharide, PPSV23 (PNEUMOVAX) Unknown Completed [facility] Twinrix (hep a/hep b) Unknown Completed [facility] Pneumococcal 13 Conjugate, PCV13 (Prevnar 13) Unknown Completed [facility] Influenza Virus Vaccine,quad Im,preserve Free 65+ (FLUAD) Unknown Completed [facility] Influenza High Dose Unknown Completed [facility] SARS-COV-2 COVID 19 SPIKE PROTEIN VACCINE , , 50 mcg/0.5 ml, IM MODERNA Unknown Completed [facility] SARS-COV-2 COVID-19 MODERNA 12+ YRS VACCINE Unknown Completed [facility] Influenza High Dose Quad Unknown Completed [facility] Pneumococcal Polysaccharide, PPSV23 (PNEUMOVAX) Unknown Completed [facility] SARS-COV-2 COVID-19 MODERNA 12+ YRS VACCINE Unknown Completed [facility] Twinrix (hep a/hep b) Unknown Completed [facility] Pneumococcal 13 Conjugate, PCV13 (Prevnar 13) Unknown Completed [facility] Influenza High Dose Quad Unknown Completed [facility] Influenza Virus Vaccine,quad Im,preserve Free 65+ (FLUAD) Unknown Completed [facility] Influenza High Dose Unknown Completed [facility] SARS-COV-2 COVID 19 SPIKE PROTEIN VACCINE 12, , 50 mcg/0.5 ml, IM MODERNA Unknown Completed [facility] Pneumococcal Polysaccharide, PPSV23 (PNEUMOVAX) Unknown Completed [facility] SARS-COV-2 COVID-19 MODERNA 12+ YRS VACCINE Unknown Completed [facility] Twinrix (hep a/hep b) Unknown Completed [facility] Pneumococcal 13 Conjugate, PCV13 (Prevnar 13) Unknown Completed [facility] Influenza High Dose Quad Unknown Completed [facility] Influenza Virus Vaccine,quad Im,preserve Free 65+ (FLUAD) Unknown Completed [facility] Influenza High Dose Unknown Completed [facility] SARS-COV-2 COVID 19 SPIKE PROTEIN VACCINE , , 50 mcg/0.5 ml, IM MODERNA Unknown Completed [facility] Pneumococcal Polysaccharide, PPSV23 (PNEUMOVAX) Unknown Completed [facility] SARS-COV-2 COVID-19 MODERNA 12+ YRS VACCINE Unknown Completed [facility] Twinrix (hep a/hep b) Unknown Completed [facility] Pneumococcal 13 Conjugate, PCV13 (Prevnar 13) Unknown Completed [facility] Influenza High Dose Quad Unknown Completed [facility] Influenza Virus Vaccine,quad Im,preserve Free 65+ (FLUAD) Unknown Completed [facility] Influenza High Dose Unknown Completed [facility] SARS-COV-2 COVID 19 SPIKE PROTEIN VACCINE 12, , 50 mcg/0.5 ml, IM MODERNA Unknown Completed [facility] Pneumococcal Polysaccharide, PPSV23 (PNEUMOVAX) Unknown Completed [facility] Twinrix (hep a/hep b) Unknown Completed [facility] Pneumococcal 13 Conjugate, PCV13 (Prevnar 13) Unknown Completed [facility] Influenza Virus Vaccine,quad Im,preserve Free 65+ (FLUAD) Unknown Completed [facility] Influenza High Dose Unknown Completed [facility] SARS-COV-2 COVID 19 SPIKE PROTEIN VACCINE , 50 mcg/0.5 ml, IM MODERNA Unknown Completed [facility] SARS-COV-2 COVID-19 PFIZER VACCINE Unknown Completed [facility] Pneumococcal Polysaccharide, PPSV23 (PNEUMOVAX) Unknown Completed [facility] SARS-COV-2 COVID-19 MODERNA 12+ YRS VACCINE Unknown Completed [facility] Twinrix (hep a/hep b) Unknown Completed [facility] Pneumococcal 13 Conjugate, PCV13 (Prevnar 13) Unknown Completed [facility] Influenza High Dose Quad Unknown Completed [facility] Influenza Virus Vaccine,quad Im,preserve Free 65+ (FLUAD) Unknown Completed [facility] Influenza High Dose Unknown Completed [facility] SARS-COV-2 COVID 19 SPIKE PROTEIN VACCINE , 50 mcg/0.5 ml, IM MODERNA Unknown Completed [facility] SARS-COV-2 COVID-19 PFIZER VACCINE Unknown Completed [facility] SARS-COV-2 COVID-19 MODERNA 12+ YRS VACCINE Unknown Completed [facility] Influenza High Dose Quad Unknown Completed [facility] Pneumococcal Polysaccharide, PPSV23 (PNEUMOVAX) Unknown Completed [facility] SARS-COV-2 COVID-19 MODERNA 12+ YRS VACCINE Unknown Completed [facility] Twinrix (hep a/hep b) Unknown Completed [facility] Pneumococcal 13 Conjugate, PCV13 (Prevnar 13) Unknown Completed [facility] Influenza High Dose Quad Unknown Completed [facility] Influenza Virus Vaccine,quad Im,preserve Free 65+ (FLUAD) Unknown Completed [facility] Influenza High Dose Unknown Completed [facility] SARS-COV-2 COVID 19 SPIKE PROTEIN VACCINE , 50 mcg/0.5 ml, IM MODERNA Unknown Completed [facility] SARS-COV-2 COVID-19 PFIZER VACCINE Unknown Completed [facility] Pneumococcal Polysaccharide, PPSV23 (PNEUMOVAX) Unknown Completed [facility] SARS-COV-2 COVID-19 MODERNA 12+ YRS VACCINE Unknown Completed [facility] Twinrix (hep a/hep b) Unknown Completed [facility] Pneumococcal 13 Conjugate, PCV13 (Prevnar 13) Unknown Completed [facility] Influenza High Dose Quad Unknown Completed [facility] Influenza Virus Vaccine,quad Im,preserve Free 65+ (FLUAD) Unknown Completed [facility] Influenza High Dose Unknown Completed [facility] SARS-COV-2 COVID 19 SPIKE PROTEIN VACCINE 12, , 50 mcg/0.5 ml, IM MODERNA Unknown Completed [facility] SARS-COV-2 COVID-19 PFIZER VACCINE Unknown Completed [facility] Pneumococcal Polysaccharide, PPSV23 (PNEUMOVAX) Unknown Completed [facility] SARS-COV-2 COVID-19 MODERNA 12+ YRS VACCINE Unknown Completed [facility] Twinrix (hep a/hep b) Unknown Completed [facility] Pneumococcal 13 Conjugate, PCV13 (Prevnar 13) Unknown Completed [facility] Influenza High Dose Quad Unknown Completed [facility] Influenza Virus Vaccine,quad Im,preserve Free 65+ (FLUAD) Unknown Completed [facility] Influenza High Dose Unknown Completed [facility] SARS-COV-2 COVID 19 SPIKE PROTEIN VACCINE , 50 mcg/0.5 ml, IM MODERNA Unknown Completed [facility] SARS-COV-2 COVID-19 PFIZER VACCINE Unknown Completed [facility] Pneumococcal Polysaccharide, PPSV23 (PNEUMOVAX) Unknown Completed [facility] SARS-COV-2 COVID-19 MODERNA 12+ YRS VACCINE Unknown Completed [facility] Twinrix (hep a/hep b) Unknown Completed [facility] Pneumococcal 13 Conjugate, PCV13 (Prevnar 13) Unknown Completed [facility] Influenza High Dose Quad Unknown Completed [facility] Influenza Virus Vaccine,quad Im,preserve Free 65+ (FLUAD) Unknown Completed [facility] Influenza High Dose Unknown Completed [facility] SARS-COV-2 COVID 19 SPIKE PROTEIN VACCINE , , 50 mcg/0.5 ml, IM MODERNA Unknown Completed [facility] SARS-COV-2 COVID-19 PFIZER VACCINE Unknown Completed [facility] Pneumococcal Polysaccharide, PPSV23 (PNEUMOVAX) Unknown Completed [facility] SARS-COV-2 COVID-19 MODERNA 12+ YRS VACCINE Unknown Completed [facility] Twinrix (hep a/hep b) Unknown Completed [facility] Pneumococcal 13 Conjugate, PCV13 (Prevnar 13) Unknown Completed [facility] Influenza High Dose Quad Unknown Completed [facility] Influenza Virus Vaccine,quad Im,preserve Free 65+ (FLUAD) Unknown Completed [facility] Influenza High Dose Unknown Completed [facility] SARS-COV-2 COVID 19 SPIKE PROTEIN VACCINE 12, , 50 mcg/0.5 ml, IM MODERNA Unknown Completed [facility] SARS-COV-2 COVID-19 PFIZER VACCINE Unknown Completed [facility] Pneumococcal Polysaccharide, PPSV23 (PNEUMOVAX) Unknown Completed [facility] SARS-COV-2 COVID-19 MODERNA 12+ YRS VACCINE Unknown Completed [facility] Twinrix (hep a/hep b) Unknown Completed [facility] Pneumococcal 13 Conjugate, PCV13 (Prevnar 13) Unknown Completed [facility] Influenza High Dose Quad Unknown Completed [facility] Influenza Virus Vaccine,quad Im,preserve Free 65+ (FLUAD) Unknown Completed [facility] Influenza High Dose Unknown Completed [facility] SARS-COV-2 COVID 19 SPIKE PROTEIN VACCINE , , 50 mcg/0.5 ml, IM MODERNA Unknown Completed [facility] SARS-COV-2 COVID-19 PFIZER VACCINE Unknown Completed [facility] Pneumococcal Polysaccharide, PPSV23 (PNEUMOVAX) Unknown Completed [facility] SARS-COV-2 COVID-19 MODERNA 12+ YRS VACCINE Unknown Completed [facility] Twinrix (hep a/hep b) Unknown Completed [facility] Pneumococcal 13 Conjugate, PCV13 (Prevnar 13) Unknown Completed [facility] Influenza High Dose Quad Unknown Completed [facility] Influenza Virus Vaccine,quad Im,preserve Free 65+ (FLUAD) Unknown Completed [facility] Influenza High Dose Unknown Completed [facility] SARS-COV-2 COVID 19 SPIKE PROTEIN VACCINE 12, , 50 mcg/0.5 ml, IM MODERNA Unknown Completed [facility] SARS-COV-2 COVID-19 PFIZER VACCINE Unknown Completed [facility] Pneumococcal Polysaccharide, PPSV23 (PNEUMOVAX) Unknown Completed [facility] SARS-COV-2 COVID-19 MODERNA 12+ YRS VACCINE Unknown Completed [facility] Twinrix (hep a/hep b) Unknown Completed [facility] Pneumococcal 13 Conjugate, PCV13 (Prevnar 13) Unknown Completed [facility] Influenza High Dose Quad Unknown Completed [facility] Influenza Virus Vaccine,quad Im,preserve Free 65+ (FLUAD) Unknown Completed [facility] Influenza High Dose Unknown Completed [facility] SARS-COV-2 COVID 19 SPIKE PROTEIN VACCINE , 50 mcg/0.5 ml, IM MODERNA Unknown Completed [facility] SARS-COV-2 COVID-19 PFIZER VACCINE Unknown Completed [facility] Pneumococcal Polysaccharide, PPSV23 (PNEUMOVAX) Unknown Completed [facility] SARS-COV-2 COVID-19 MODERNA 12+ YRS VACCINE Unknown Completed [facility] Twinrix (hep a/hep b) Unknown Completed [facility] Pneumococcal 13 Conjugate, PCV13 (Prevnar 13) Unknown Completed [facility] Influenza High Dose Quad Unknown Completed [facility] Influenza Virus Vaccine,quad Im,preserve Free 65+ (FLUAD) Unknown Completed [facility] Influenza High Dose Unknown Completed [facility] SARS-COV-2 COVID 19 SPIKE PROTEIN VACCINE , 50 mcg/0.5 ml, IM MODERNA Unknown Completed [facility] SARS-COV-2 COVID-19 PFIZER VACCINE Unknown Completed [facility] Pneumococcal Polysaccharide, PPSV23 (PNEUMOVAX) Unknown Completed [facility] SARS-COV-2 COVID-19 MODERNA 12+ YRS VACCINE Unknown Completed [facility] Twinrix (hep a/hep b) Unknown Completed [facility] Pneumococcal 13 Conjugate, PCV13 (Prevnar 13) Unknown Completed [facility] Influenza High Dose Quad Unknown Completed [facility] Influenza Virus Vaccine,quad Im,preserve Free 65+ (FLUAD) Unknown Completed [facility] Influenza High Dose Unknown Completed [facility] SARS-COV-2 COVID 19 SPIKE PROTEIN VACCINE , , 50 mcg/0.5 ml, IM MODERNA Unknown Completed [facility] SARS-COV-2 COVID-19 PFIZER VACCINE Unknown Completed [facility] Pneumococcal Polysaccharide, PPSV23 (PNEUMOVAX) Unknown Completed [facility] SARS-COV-2 COVID-19 MODERNA 12+ YRS VACCINE Unknown Completed [facility] Twinrix (hep a/hep b) Unknown Completed [facility] Pneumococcal 13 Conjugate, PCV13 (Prevnar 13) Unknown Completed [facility] Influenza High Dose Quad Unknown Completed [facility] Influenza Virus Vaccine,quad Im,preserve Free 65+ (FLUAD) Unknown Completed [facility] Influenza High Dose Unknown Completed [facility] SARS-COV-2 COVID 19 SPIKE PROTEIN VACCINE , , 50 mcg/0.5 ml, IM MODERNA Unknown Completed [facility] SARS-COV-2 COVID-19 PFIZER VACCINE Unknown Completed [facility] Pneumococcal Polysaccharide, PPSV23 (PNEUMOVAX) Unknown Completed [facility] SARS-COV-2 COVID-19 MODERNA 12+ YRS VACCINE Unknown Completed [facility] Twinrix (hep a/hep b) Unknown Completed [facility] Pneumococcal 13 Conjugate, PCV13 (Prevnar 13) Unknown Completed [facility] Influenza High Dose Quad Unknown Completed [facility] Influenza Virus Vaccine,quad Im,preserve Free 65+ (FLUAD) Unknown Completed [facility] Influenza High Dose Unknown Completed [facility] SARS-COV-2 COVID 19 SPIKE PROTEIN VACCINE , , 50 mcg/0.5 ml, IM MODERNA Unknown Completed [facility] SARS-COV-2 COVID-19 PFIZER VACCINE Unknown Completed [facility] Pneumococcal Polysaccharide, PPSV23 (PNEUMOVAX) Unknown Completed [facility] SARS-COV-2 COVID-19 MODERNA 12+ YRS VACCINE Unknown Completed [facility] Twinrix (hep a/hep b) Unknown Completed [facility] Pneumococcal 13 Conjugate, PCV13 (Prevnar 13) Unknown Completed [facility] Influenza High Dose Quad Unknown Completed [facility] Influenza Virus Vaccine,quad Im,preserve Free 65+ (FLUAD) Unknown Completed [facility] Influenza High Dose Unknown Completed [facility] SARS-COV-2 COVID 19 SPIKE PROTEIN VACCINE 12, , 50 mcg/0.5 ml, IM MODERNA Unknown Completed [facility] SARS-COV-2 COVID-19 PFIZER VACCINE Unknown Completed [facility] Pneumococcal Polysaccharide, PPSV23 (PNEUMOVAX) Unknown Completed [facility] SARS-COV-2 COVID-19 MODERNA 12+ YRS VACCINE Unknown Completed [facility] Twinrix (hep a/hep b) Unknown Completed [facility] Pneumococcal 13 Conjugate, PCV13 (Prevnar 13) Unknown Completed [facility] Influenza High Dose Quad Unknown Completed [facility] Influenza Virus Vaccine,quad Im,preserve Free 65+ (FLUAD) Unknown Completed [facility] Influenza High Dose Unknown Completed [facility] SARS-COV-2 COVID 19 SPIKE PROTEIN VACCINE , , 50 mcg/0.5 ml, IM MODERNA Unknown Completed [facility] SARS-COV-2 COVID-19 PFIZER VACCINE Unknown Completed [facility] Pneumococcal Polysaccharide, PPSV23 (PNEUMOVAX) Unknown Completed [facility] SARS-COV-2 COVID-19 MODERNA 12+ YRS VACCINE Unknown Completed [facility] Twinrix (hep a/hep b) Unknown Completed [facility] Pneumococcal 13 Conjugate, PCV13 (Prevnar 13) Unknown Completed [facility] Influenza High Dose Quad Unknown Completed [facility] Influenza Virus Vaccine,quad Im,preserve Free 65+ (FLUAD) Unknown Completed [facility] Influenza High Dose Unknown Completed [facility] SARS-COV-2 COVID 19 SPIKE PROTEIN VACCINE , , 50 mcg/0.5 ml, IM MODERNA Unknown Completed [facility] SARS-COV-2 COVID-19 PFIZER VACCINE Unknown Completed [facility] Pneumococcal Polysaccharide, PPSV23 (PNEUMOVAX) Unknown Completed [facility] SARS-COV-2 COVID-19 MODERNA 12+ YRS VACCINE Unknown Completed [facility] Twinrix (hep a/hep b) Unknown Completed [facility] Pneumococcal 13 Conjugate, PCV13 (Prevnar 13) Unknown Completed [facility] Influenza High Dose Quad Unknown Completed [facility] Influenza Virus Vaccine,quad Im,preserve Free 65+ (FLUAD) Unknown Completed [facility] Influenza High Dose Unknown Completed [facility] SARS-COV-2 COVID 19 SPIKE PROTEIN VACCINE 12, , 50 mcg/0.5 ml, IM MODERNA Unknown Completed [facility] SARS-COV-2 COVID-19 PFIZER VACCINE Unknown Completed [facility] Pneumococcal Polysaccharide, PPSV23 (PNEUMOVAX) Unknown Completed [facility] SARS-COV-2 COVID-19 MODERNA 12+ YRS VACCINE Unknown Completed [facility] Twinrix (hep a/hep b) Unknown Completed [facility] Pneumococcal 13 Conjugate, PCV13 (Prevnar 13) Unknown Completed [facility] Influenza High Dose Quad Unknown Completed [facility] Influenza Virus Vaccine,quad Im,preserve Free 65+ (FLUAD) Unknown Completed [facility] Influenza High Dose Unknown Completed [facility] SARS-COV-2 COVID 19 SPIKE PROTEIN VACCINE , , 50 mcg/0.5 ml, IM MODERNA Unknown Completed [facility] SARS-COV-2 COVID-19 PFIZER VACCINE Unknown Completed [facility] Pneumococcal Polysaccharide, PPSV23 (PNEUMOVAX) Unknown Completed [facility] SARS-COV-2 COVID-19 MODERNA 12+ YRS VACCINE Unknown Completed [facility] Twinrix (hep a/hep b) Unknown Completed [facility] Pneumococcal 13 Conjugate, PCV13 (Prevnar 13) Unknown Completed [facility] Influenza High Dose Quad Unknown Completed [facility] Influenza Virus Vaccine,quad Im,preserve Free 65+ (FLUAD) Unknown Completed [facility] Influenza High Dose Unknown Completed [facility] SARS-COV-2 COVID 19 SPIKE PROTEIN VACCINE , , 50 mcg/0.5 ml, IM MODERNA Unknown Completed [facility] SARS-COV-2 COVID-19 PFIZER VACCINE Unknown Completed [facility] Influenza Virus Vaccine Unknown Completed [facility] SARS-COV-2 COVID-19 UNSPECIFIED VACCINE Unknown Completed [facility] Influenza, adjuvanted, trivalent, PF (FLUAD) Unknown Completed [facility] Pneumococcal Polysaccharide, PPSV23 (PNEUMOVAX) Unknown Completed [facility] SARS-COV-2 COVID-19 MODERNA 12+ YRS VACCINE Unknown Completed [facility] Twinrix (hep a/hep b) Unknown Completed [facility] Pneumococcal 13 Conjugate, PCV13 (Prevnar 13) Unknown Completed [facility] Influenza High Dose Quad Unknown Completed [facility] Influenza Virus Vaccine,quad Im,preserve Free 65+ (FLUAD) Unknown Completed [facility] Influenza, High-Dose, Trivalent, PF (FLUZONE) Unknown Completed [facility] SARS-COV-2 COVID 19 SPIKE PROTEIN VACCINE , , 50 mcg/0.5 ml, IM MODERNA Unknown Completed [facility] SARS-COV-2 COVID-19 PFIZER VACCINE Unknown Completed [facility] Influenza Virus Vaccine Unknown Completed [facility] SARS-COV-2 COVID-19 UNSPECIFIED VACCINE Unknown Completed [facility] Influenza, adjuvanted, trivalent, PF (FLUAD) Unknown Completed [facility] Vital Signs Vital Name Observation Time Observation Value Comments S ource Systolic blood pressure 2024-12-21 14:03:00 150 mm[Hg] [facility] Diastolic blood pressure 2024-12-21 14:03:00 70 mm[Hg] [facility] Heart rate 2024-12-21 14:03:00 73 /min [facility] Body temperature 2024-12-21 14:03:00 36.61 Katerin [facility] Respiratory rate 2024-12-21 14:03:00 22 /min [facility] Body height 2024-12-21 14:03:00 167.6 cm [facility] Body weight 2024-12-21 14:03:00 114.216 kg [facility] BMI 2024-12-21 14:03:00 40.64 kg/m2 [facility] Oxygen saturation in Arterial blood by Pulse oximetry 2024-12-21 14:03:00 99 /min [facility] Systolic blood pressure 2024-12-16 19:29:00 119 mm[Hg] [facility] Diastolic blood pressure 2024-12-16 19:29:00 82 mm[Hg] [facility] Heart rate 2024-12-16 19:29:00 73 /min [facility] Body temperature 2024-12-16 19:29:00 36.56 Katerin [facility] Respiratory rate 2024-12-16 19:29:00 20 /min [facility] Body height 2024-12-16 19:29:00 167.6 cm [facility] Body weight 2024-12-16 19:29:00 112.946 kg [facility] BMI 2024-12-16 19:29:00 40.19 kg/m2 [facility] Oxygen saturation in Arterial blood by Pulse oximetry 2024-12-16 19:29:00 97 /min [facility] Systolic blood pressure 2024-12-09 17:20:00 102 mm[Hg] [facility] Diastolic blood pressure 2024-12-09 17:20:00 70 mm[Hg] [facility] Heart rate 2024-12-09 17:20:00 77 /min [facility] Body temperature 2024-12-09 17:20:00 36.78 Katerin [facility] Respiratory rate 2024-12-09 17:20:00 18 /min [facility] Oxygen saturation in Arterial blood by Pulse oximetry 2024-12-09 17:20:00 95 /min [facility] Body weight 2024-12-06 17:00:00 110.678 kg [facility] BMI 2024-12-06 17:00:00 39.38 kg/m2 [facility] Systolic blood pressure 2024-12-09 17:15:00 115 mm[Hg] [facility] Diastolic blood pressure 2024-12-09 17:15:00 71 mm[Hg] [facility] Heart rate 2024-12-09 17:15:00 74 /min [facility] Respiratory rate 2024-12-09 17:15:00 20 /min [facility] Oxygen saturation in Arterial blood by Pulse oximetry 2024-12-09 17:15:00 97 /min [facility] Body temperature 2024-12-09 16:32:00 36.89 Katerin [facility] Body weight 2024-12-06 17:00:00 110.678 kg [facility] BMI 2024-12-06 17:00:00 39.38 kg/m2 [facility] Systolic blood pressure 2024-11-25 21:28:00 139 mm[Hg] [facility] Diastolic blood pressure 2024-11-25 21:28:00 75 mm[Hg] [facility] Heart rate 2024-11-25 21:28:00 94 /min [facility] Respiratory rate 2024-11-25 21:28:00 22 /min [facility] Body height 2024-11-25 21:28:00 167.6 cm [facility] Body weight 2024-11-25 21:28:00 112.946 kg [facility] BMI 2024-11-25 21:28:00 40.19 kg/m2 [facility] Oxygen saturation in Arterial blood by Pulse oximetry 2024-11-25 21:28:00 96 /min [facility] Systolic blood pressure 2024-11-23 14:15:00 156 mm[Hg] [facility] Diastolic blood pressure 2024-11-23 14:15:00 75 mm[Hg] [facility] Heart rate 2024-11-23 14:13:00 [facility] Body temperature 2024-11-23 14:13:00 36.61 Katerin [facility] Respiratory rate 2024-11-23 14:13:00 19 /min [facility] Body height 2024-11-23 14:13:00 167.6 cm [facility] Body weight 2024-11-23 14:13:00 113.671 kg [facility] BMI 2024-11-23 14:13:00 40.45 kg/m2 [facility] Oxygen saturation in Arterial blood by Pulse oximetry 2024-11-23 14:13:00 97 /min [facility] Systolic blood pressure 2024-11-11 20:35:00 130 mm[Hg] [facility] Diastolic blood pressure 2024-11-11 20:35:00 76 mm[Hg] [facility] Heart rate 2024-11-11 20:35:00 71 /min [facility] Body temperature 2024-11-11 20:35:00 36.78 Katerin [facility] Body height 2024-11-11 20:35:00 167.6 cm [facility] Body weight 2024-11-11 20:35:00 115.214 kg [facility] BMI 2024-11-11 20:35:00 41.00 kg/m2 [facility] Oxygen saturation in Arterial blood by Pulse oximetry 2024-11-11 20:35:00 98 /min [facility] Systolic blood pressure 2024-10-26 14:08:00 155 mm[Hg] [facility] Diastolic blood pressure 2024-10-26 14:08:00 72 mm[Hg] [facility] Heart rate 2024-10-26 14:08:00 62 /min [facility] Body temperature 2024-10-26 14:08:00 36.67 Katerin [facility] Respiratory rate 2024-10-26 14:08:00 19 /min [facility] Body height 2024-10-26 14:08:00 167.6 cm [facility] Body weight 2024-10-26 14:08:00 112.537 kg [facility] BMI 2024-10-26 14:08:00 40.04 kg/m2 [facility] Oxygen saturation in Arterial blood by Pulse oximetry 2024-10-26 14:08:00 97 /min [facility] Systolic blood pressure 2024-09-26 20:00:00 141 mm[Hg] [facility] Diastolic blood pressure 2024-09-26 20:00:00 75 mm[Hg] [facility] Heart rate 2024-09-26 20:00:00 77 /min [facility] Respiratory rate 2024-09-26 20:00:00 18 /min [facility] Oxygen saturation in Arterial blood by Pulse oximetry 2024-09-26 20:00:00 99 /min [facility] Body temperature 2024-09-26 18:45:00 36.67 Katerin [facility] Body height 2024-09-26 18:45:00 [facility].6 cm [facility] Body [facility] 2024-09-26 18:45:00 113.399 kg [facility] BMI 2024-09-26 18:45:00 40.35 kg/m2 [facility] Systolic blood pressure 2024-09-21 19:58:00 121 mm[Hg] [facility] Diastolic blood pressure 2024-09-21 19:58:00 74 mm[Hg] [facility] Heart rate 2024-09-21 19:58:00 82 /min [facility] Respiratory rate 2024-09-21 19:58:00 19 /min [facility] Body height 2024-09-21 19:58:00 167.6 cm [facility] Body weight 2024-09-21 19:58:00 112.22 kg [facility] BMI 2024-09-21 19:58:00 39.93 kg/m2 [facility] Oxygen saturation in Arterial blood by Pulse oximetry 2024-09-21 19:58:00 97 /min [facility] Systolic blood pressure 2024-09-16 16:29:00 116 mm[Hg] [facility] Diastolic blood pressure 2024-09-16 16:29:00 54 mm[Hg] [facility] Heart rate 2024-09-16 16:29:00 86 /min [facility] Body temperature 2024-09-16 16:29:00 37 Katerin [facility] Respiratory rate 2024-09-16 16:29:00 19 /min [facility] Body height 2024-09-16 16:29:00 167.6 cm [facility] Body weight 2024-09-16 16:29:00 113.399 kg [facility] BMI 2024-09-16 16:29:00 40.35 kg/m2 [facility] Oxygen saturation in Arterial blood by Pulse oximetry 2024-09-16 16:29:00 97 /min [facility] Systolic blood pressure 2024-09-09 14:57:00 132 mm[Hg] [facility] Diastolic blood pressure 2024-09-09 14:57:00 65 mm[Hg] [facility] Heart rate 2024-09-09 14:49:00 90 /min [facility] Body height 2024-09-09 14:49:00 167.6 cm [facility] Body weight 2024-09-09 14:49:00 116.121 kg [facility] BMI 2024-09-09 14:49:00 41.32 kg/m2 [facility] Oxygen saturation in Arterial blood by Pulse oximetry 2024-09-09 14:49:00 97 /min [facility] Systolic blood pressure 2024-08-26 15:58:00 152 mm[Hg] [facility] Diastolic blood pressure 2024-08-26 15:58:00 72 mm[Hg] [facility] Heart rate 2024-08-26 15:49:00 89 /min [facility] Body temperature 2024-08-26 15:49:00 36.44 Katerin [facility] Body height 2024-08-26 15:49:00 167.6 cm [facility] Body weight 2024-08-26 15:49:00 122.244 kg [facility] BMI 2024-08-26 15:49:00 43.50 kg/m2 [facility] Oxygen saturation in Arterial blood by Pulse oximetry 2024-08-26 15:49:00 97 /min [facility] Systolic blood pressure 2024-08-18 20:51:00 161 mm[Hg] [facility] Diastolic blood pressure 2024-08-18 20:51:00 70 mm[Hg] [facility] Heart rate 2024-08-18 20:51:00 76 /min [facility] Body temperature 2024-08-18 20:51:00 36.22 Katerin [facility] Respiratory rate 2024-08-18 20:51:00 18 /min [facility] Oxygen saturation in Arterial blood by Pulse oximetry 2024-08-18 20:51:00 97 /min [facility] Body weight 2024-08-18 08:24:00 115.985 kg [facility] BMI 2024-08-18 08:24:00 38.88 kg/m2 [facility] Body height 2024-08-08 21:53:00 172.7 cm [facility] Systolic blood pressure 2024-08-10 17:36:00 146 mm[Hg] [facility] Diastolic blood pressure 2024-08-10 17:36:00 75 mm[Hg] [facility] Heart rate 2024-08-10 17:36:00 60 /min [facility] Body temperature 2024-08-10 17:36:00 36.22 Katerin [facility] Respiratory rate 2024-08-10 17:36:00 16 /min [facility] Oxygen saturation in Arterial blood by Pulse oximetry 2024-08-10 17:36:00 96 /min [facility] Body weight 2024-08-10 09:15:00 125.465 kg [facility] BMI 2024-08-10 09:15:00 41.03 kg/m2 [facility] Body height 2024-08-08 21:53:00 172.7 cm [facility] Systolic blood pressure 2024-08-06 18:26:00 155 mm[Hg] [facility] Diastolic blood pressure 2024-08-06 18:26:00 75 mm[Hg] [facility] Heart rate 2024-08-06 18:09:00 71 /min [facility] Body temperature 2024-08-06 18:09:00 38.44 Katerin [facility] Body height 2024-08-06 18:09:00 167.6 cm [facility] Body weight 2024-08-06 18:09:00 121.564 kg [facility] 2024-08-06 18:09:00 43.26 kg/m2 [facility] Oxygen saturation in Arterial blood by Pulse oximetry 2024-08-06 18:09:00 98 /min [facility] Systolic blood pressure 2024-07-09 18:57:00 139 mm[Hg] [facility] Diastolic blood pressure 2024-07-09 18:57:00 75 mm[Hg] [facility] Heart rate 2024-07-09 18:56:00 86 /min [facility] Body temperature 2024-07-09 18:56:00 37.11 Katerin [facility] Respiratory rate 2024-07-09 18:56:00 18 /min [facility] Body height 2024-07-09 18:56:00 167.6 cm [facility] Body weight 2024-07-09 18:56:00 123.152 kg [facility] BMI 2024-07-09 18:56:00 43.82 kg/m2 [facility] Oxygen saturation in Arterial blood by Pulse oximetry 2024-07-09 18:56:00 95 /min [facility] Systolic blood pressure 2024-05-03 18:59:00 137 mm[Hg] [facility] Diastolic blood pressure 2024-05-03 18:59:00 79 mm[Hg] [facility] Heart rate 2024-05-03 18:59:00 72 /min [facility] Res[facility] rate 2024-05-03 18:59:00 19 /min [facility] Body height 2024-05-03 18:59:00 167.6 cm [facility] Body weight 2024-05-03 18:59:00 128.368 kg [facility] BMI 2024-05-03 18:59:00 45.68 kg/m2 [facility] Oxygen saturation in Arterial blood by Pulse oximetry 2024-05-03 18:59:00 96 /min [facility] Systolic blood pressure 2024-03-10 01:53:00 126 mm[Hg] [facility] Diastolic blood pressure 2024-03-10 01:53:00 69 mm[Hg] [facility] Heart rate 2024-03-10 01:53:00 60 /min [facility] Body temperature 2024-03-10 01:53:00 36.61 Katerin [facility] Respiratory rate 2024-03-10 01:53:00 16 /min [facility] Oxygen saturation in Arterial blood by Pulse oximetry 2024-03-10 01:53:00 98 /min [facility] Body height 2024-03-09 23:25:00 167.6 cm [facility] Body weight 2024-03-09 23:25:00 131.543 kg [facility] BMI 2024-03-09 23:25:00 46.81 kg/m2 [facility] Systolic blood pressure 2024-03-08 20:35:00 148 mm[Hg] [facility] Diastolic blood pressure 2024-03-08 20:35:00 78 mm[Hg] [facility] Heart rate 2024-03-08 20:24:00 58 /min [facility] Respiratory rate 2024-03-08 20:24:00 18 /min [facility] Body height 2024-03-08 20:24:00 167.6 cm [facility] Body weight 2024-03-08 20:24:00 131.951 kg [facility] BMI 2024-03-08 20:24:00 46.95 kg/m2 [facility] Oxygen saturation in Arterial blood by Pulse oximetry 2024-03-08 20:24:00 97 /min [facility] Systolic blood pressure 2024-01-28 18:47:00 114 mm[Hg] [facility] Diastolic blood pressure 2024-01-28 18:47:00 65 mm[Hg] [facility] Heart rate 2024-01-28 18:47:00 61 /min [facility] Body height 2024-01-28 18:47:00 167.6 cm [facility] Body weight 2024-01-28 18:47:00 133.675 kg [facility] BMI 2024-01-28 18:47:00 47.57 kg/m2 [facility] Oxygen saturation in Arterial blood by Pulse oximetry 2024-01-28 18:47:00 95 /min [facility] Systolic blood pressure 2024-01-06 21:44:00 120 mm[Hg] [facility] Diastolic blood pressure 2024-01-06 21:44:00 61 mm[Hg] [facility] Heart rate 2024-01-06 21:44:00 80 /min [facility] Body temperature 2024-01-06 21:44:00 36.61 Katerin [facility] Respiratory rate 2024-01-06 21:44:00 18 /min [facility] Body height 2024-01-06 21:44:00 167.6 cm [facility] Body weight 2024-01-06 21:44:00 134.718 kg [facility] BMI 2024-01-06 21:44:00 47.94 kg/m2 [facility] Oxygen saturation in Arterial blood by Pulse oximetry 2024-01-06 21:44:00 96 /min [facility] Systolic blood pressure 2023-12-09 21:47:00 133 mm[Hg] [facility] Diastolic blood pressure 2023-12-09 21:47:00 65 mm[Hg] [facility] Heart rate 2023-12-09 21:47:00 78 /min [facility] Body temperature 2023-12-09 21:47:00 36.78 Katerin [facility] Respiratory rate 2023-12-09 21:47:00 18 /min [facility] Body height 2023-12-09 21:47:00 167.6 cm [facility] Body weight 2023-12-09 21:47:00 136.442 kg [facility] BMI 2023-12-09 21:47:00 48.55 kg/m2 [facility] Oxygen saturation in Arterial blood by Pulse oximetry 2023-12-09 21:47:00 97 /min [facility] Systolic blood pressure 2023-12-05 20:39:00 140 mm[Hg] [facility] Diastolic blood pressure 2023-12-05 20:39:00 77 mm[Hg] [facility] Heart rate 2023-12-05 20:39:00 64 /min [facility] Body temperature 2023-12-05 20:39:00 36.61 Katerin [facility] Respiratory rate 2023-12-05 20:39:00 16 /min [facility] Body height 2023-12-05 20:39:00 167.6 cm [facility] Body weight 2023-12-05 20:39:00 131.543 kg [facility] BMI 2023-12-05 20:39:00 46.81 kg/m2 [facility] Oxygen saturation in Arterial blood by Pulse oximetry 2023-12-05 20:39:00 99 /min [facility] Systolic blood pressure 2023-08-08 18:32:00 139 mm[Hg] [facility] Diastolic blood pressure 2023-08-08 18:32:00 72 mm[Hg] [facility] Heart rate 2023-08-08 18:32:00 56 [facility] Respiratory rate 2023-08-08 18:32:00 20 /min [facility] Body height 2023-08-08 18:32:00 167.6 cm [facility] Body weight 2023-08-08 18:32:00 138.891 kg [facility] BMI 2023-08-08 18:32:00 49.42 kg/m2 [facility] Oxygen saturation in Arterial blood by Pulse oximetry 2023-08-08 18:32:00 93 /min [facility] Systolic blood pressure 2023-06-04 13:49:00 131 mm[Hg] [facility] Diastolic blood pressure 2023-06-04 13:49:00 64 mm[Hg] [facility] Heart rate 2023-06-04 13:49:00 66 /min [facility] Body height 2023-06-04 13:49:00 167.6 cm [facility] Body weight 2023-06-04 13:49:00 134.628 kg [facility] BMI 2023-06-04 13:49:00 47.90 kg/m2 [facility] Oxygen saturation in Arterial blood by Pulse oximetry 2023-06-04 13:49:00 96 /min [facility] Systolic blood pressure 2023-05-19 17:38:00 120 mm[Hg] [facility] Diastolic blood pressure 2023-05-19 17:38:00 75 mm[Hg] [facility] Heart rate 2023-05-19 17:38:00 62 /min [facility] Body temperature 2023-05-19 17:38:00 36.67 Katerin [facility] Respiratory rate 2023-05-19 17:38:00 18 /min [facility] Body weight 2023-05-19 17:38:00 141.976 kg [facility] BMI 2023-05-19 17:38:00 50.52 kg/m2 [facility] Oxygen saturation in Arterial blood by Pulse oximetry 2023-05-19 17:38:00 96 /min [facility] Systolic blood pressure 2023-04-21 18:15:00 132 mm[Hg] [facility] Diastolic blood pressure 2023-04-21 18:15:00 70 mm[Hg] [facility] Heart rate 2023-04-21 18:15:00 72 /min [facility] Oxygen saturation in Arterial blood by Pulse oximetry 2023-04-21 18:15:00 94 /min [facility] Respiratory rate 2023-04-21 18:12:00 19 /min [facility] Body height 2023-04-21 18:12:00 167.6 cm [facility] Body weight 2023-04-21 18:12:00 142.928 kg [facility] BMI 2023-04-21 18:12:00 50.86 kg/m2 [facility] Systolic blood pressure 2023-04-18 19:40:00 141 mm[Hg] [facility] Diastolic blood pressure 2023-04-18 19:40:00 67 mm[Hg] [facility] Heart rate 2023-04-18 19:39:00 67 /min [facility] Body temperature 2023-04-18 19:39:00 36.56 Katerin [facility] Body height 2023-04-18 19:39:00 167.6 cm [facility] Body weight 2023-04-18 19:39:00 142.883 kg [facility] BMI 2023-04-18 19:39:00 50.84 kg/m2 [facility] Oxygen saturation in Arterial blood by Pulse oximetry 2023-04-18 19:39:00 95 /min [facility] Systolic blood pressure 2023-04-10 16:11:00 125 mm[Hg] [facility] Diastolic blood pressure 2023-04-10 16:11:00 73 mm[Hg] [facility] Heart rate 2023-04-10 16:11:00 57 [facility] Body temperature 2023-04-10 16:11:00 35.78 Katerin [facility] Respiratory rate 2023-04-10 16:11:00 18 /min [facility] Oxygen saturation in Arterial blood by Pulse oximetry 2023-04-10 16:11:00 93 /min [facility] Body weight 2023-04-10 08:01:00 143.972 kg [facility] BMI 2023-04-10 08:01:00 51.23 kg/m2 [facility] Body height 2023-04-08 22:33:00 167.6 cm [facility] Systolic blood pressure 2023-04-08 20:07:00 116 mm[Hg] [facility] Diastolic blood pressure 2023-04-08 20:07:00 75 mm[Hg] [facility] Heart rate 2023-04-08 20:07:00 83 /min [facility] Respiratory rate 2023-04-08 20:07:00 19 /min [facility] Body height 2023-04-08 20:07:00 167.6 cm [facility] Body weight 2023-04-08 20:07:00 147.419 kg [facility] BMI 2023-04-08 20:07:00 52.46 kg/m2 [facility] Oxygen saturation in Arterial blood by Pulse oximetry 2023-04-08 20:07:00 90 /min [facility] Systolic blood pressure 2023-04-04 12:38:00 139 mm[Hg] [facility] Diastolic blood pressure 2023-04-04 12:38:00 84 mm[Hg] [facility] Heart rate 2023-04-04 12:38:00 57 /min [facility] Body temperature 2023-04-04 12:38:00 37.22 Katerin [facility] Body height 2023-04-04 12:38:00 167.6 cm [facility] Body weight 2023-04-04 12:38:00 146.058 kg [facility] BMI 2023-04-04 12:38:00 51.97 kg/m2 [facility] Oxygen saturation in Arterial blood by Pulse oximetry 2023-04-04 12:38:00 98 /min [facility] Systolic blood pressure 2022-11-27 20:06:00 136 mm[Hg] [facility] Diastolic blood pressure 2022-11-27 20:06:00 82 mm[Hg] [facility] Heart rate 2022-11-27 20:06:00 81 /min [facility] Respiratory rate 2022-11-27 20:06:00 18 /min [facility] Body weight 2022-11-27 20:06:00 150.367 kg [facility] BMI 2022-11-27 20:06:00 53.51 kg/m2 [facility] Oxygen saturation in Arterial blood by Pulse oximetry 2022-11-27 20:06:00 92 /min [facility] Systolic blood pressure 2022-08-09 19:17:00 133 mm[Hg] [facility] Diastolic blood pressure 2022-08-09 19:17:00 82 mm[Hg] [facility] Heart rate 2022-08-09 19:17:00 73 /min [facility] Body temperature 2022-08-09 19:17:00 36.28 Katerin [facility] Respiratory rate 2022-08-09 19:17:00 20 /min [facility] Body height 2022-08-09 19:17:00 167.6 cm [facility] Body weight 2022-08-09 19:17:00 153.27 kg [facility] BMI 2022-08-09 19:17:00 54.54 kg/m2 [facility] Oxygen saturation in Arterial blood by Pulse oximetry 2022-08-09 19:17:00 95 /min [facility] Systolic blood pressure 2022-05-17 18:35:00 158 mm[Hg] [facility] Diastolic blood pressure 2022-05-17 18:35:00 90 mm[Hg] [facility] Heart rate 2022-05-17 17:54:00 80 /min [facility] Body temperature 2022-05-17 17:54:00 36.94 Katerin [facility] Body height 2022-05-17 17:54:00 167.6 cm [facility] Body weight 2022-05-17 17:54:00 149.324 kg [facility] BMI 2022-05-17 17:54:00 53.13 kg/m2 [facility] Oxygen saturation in Arterial blood by Pulse oximetry 2022-05-17 17:54:00 97 /min [facility] Systolic blood pressure 2021-10-10 20:09:00 111 mm[Hg] [facility] Diastolic blood pressure 2021-10-10 20:09:00 67 mm[Hg] [facility] [facility] Heart rate 2021-10-10 20:09:00 76 /min [facility] Body temperature 2021-10-10 20:09:00 36.11 Katerin [facility] Respiratory rate 2021-10-10 20:09:00 18 /min [facility] Body height 2021-10-10 20:09:00 167.6 cm [facility] Body weight 2021-10-10 20:09:00 142.702 kg [facility] BMI 2021-10-10 20:09:00 50.78 kg/m2 [facility] Oxygen saturation in Arterial blood by Pulse oximetry 2021-10-10 20:09:00 94 /min Shannon o [facility] Procedures Procedure Date / Time Performed Performing Clinician Source [id number] - [place] ARVEN ANAST OPN UPR ARM CEPHALIC VEIN TRPOS 2024-12-09 14:36:00 Manolo [facility] [id number] - [place] ARVEN ANAST OPN UPR ARM BASILIC VEIN TRPOS 2024-12-09 14:36:00 Manolo [facility] [id number] - [place] ARVEN ANAST OPN F/ARM VEIN TRPOS 2024-12-09 14:36:00 Manolo [facility] [id number] - [place] CRTJ ARVEN FSTL XCP DIR ADAN ANAST AUTOG GRF 2024-12-09 14:36:00 Manolo [facility] [id number] - [place] ARTERIOVENOUS ANASTOMOSIS OPEN DIRECT 2024-12-09 14:36:00 Manolo [facility] [id number] - [place] CRTJ ARVEN FSTL XCP DIR ADAN ANAST NONAUTOG GRF 2024-12-09 14:36:00 Manolo [facility] 2024-12-09 14:24:00 Senthil French [facility] ACUTE CARE VENOUS 2024-12-09 14:24:00 Senthil French [facility] POTASSIUM SERUM 2024-12-09 13:43:00 Nazario العراقي [facility] HB ABO GROUPING 2024-12-09 13:43:00 [facility] 2024-12-09 13:43:00 Nazario العراقي [facility] HB ABO GROUPING 2024-12-09 13:43:00 Gretchen Quinteros [facility] PHYSICIAN ORDERS 2024-09-15 16:14:00 Doctor Cheryl signed, [place] [facility] TRANSTHORACIC ECHO (TTE) COMPLETE W/ CONTRAST 2024-09-14 15:49:53 María Elena Cowan [facility] POCT GLUCOSE (AUTOMATED) 2024-08-18 21:53:00 Brien Cross [facility] DUPLEX ARTERIAL ARM RIGHT - BY VASCULAR LAB 2024-08-18 21:11:02 Claudia Souza [facility] DUPLEX VENOUS ARM RIGHT - BY VASCULAR LAB 2024-08-18 21:06:24 Claudia Souza [facility] POCT GLUCOSE (AUTOMATED) 2024-08-18 16:51:00 Brien Cross [facility] POCT GLUCOSE (AUTOMATED) 2024-08-18 12:43:00 Brien Cross [facility] PHOSPHORUS 2024-08-18 09:00:00 Juan Cross [facility] MAGNESIUM 2024-08-18 09:00:00 [facility] BASIC METABOLIC PANEL (NA, K, CL, CO2, GLUCOSE, BUN, CREATININE, CA) 2024-08-18 09:00:00 Juan Cross [facility] CBC WITH DIFF 2024-08-18 09:00:00 Juan Cross [facility] POCT GLUCOSE (AUTOMATED) 2024-08-18 01:18:00 Brien Cross [facility] POCT GLUCOSE (AUTOMATED) 2024-08-17 21:31:00 Brien Cross [facility] POCT GLUCOSE (AUTOMATED) 2024-08-17 16:41:00 Brien Cross [facility] POCT GLUCOSE (AUTOMATED) 2024-08-17 12:34:00 Brien Cross [facility] BASIC METABOLIC PANEL (NA, K, CL, CO2, GLUCOSE, BUN, CREATININE, CA) 2024-08-17 10:09:00 [facility]FF 2024-08-17 10:09:00 Lilly Rodriguez Anais [facility] POCT GLUCOSE (AUTOMATED) 2024-08-17 01:31:00 Brien Cross [facility] POCT GLUCOSE (AUTOMATED) 2024-08-16 21:35:00 Brien Cross [facility] POCT GLUCOSE (AUTOMATED) 2024-08-16 16:37:00 Brien Cross [facility] POCT GLUCOSE (AUTOMATED) 2024-08-16 12:48:00 Brien Cross [facility] BASIC METABOLIC PANEL (NA, K, CL, CO2, GLUCOSE, BUN, CREATININE, CA) 2024-08-16 09:59:00 Lilly Rodriguez [facility] CBC WITH DIFF 2024-08-16 09:59:00 Lilly Rodriguez [facility] POCT GLUCOSE (AUTOMATED) 2024-08-16 01:07:00 Brien Cross [facility] POCT GLUCOSE (AUTOMATED) 2024-08-15 21:37:00 Brien Cross [facility] POCT GLUCOSE (AUTOMATED) 2024-08-15 16:42:00 Brien Cross [facility] BASIC METABOLIC PANEL (NA, K, CL, CO2, GLUCOSE, BUN, CREATININE, CA) 2024-08-15 14:13:00 [facility] CBC WITH DIFF 2024-08-15 14:13:00 Lilly Rodriguez [facility] POCT GLUCOSE (AUTOMATED) 2024-08-15 12:29:00 Brien Cross [facility] POCT GLUCOSE (AUTOMATED) 2024-08-14 21:44:00 Brien Cross [facility] MICROALBUMIN URINE 2024-08-14 09:54:00 Brad Weldon [facility] PROTEIN CREAT RATIO URINE RANDOM 2024-08-14 09:54:00 Brad Weldon [facility] CBC WITH DIFF 2024-08-14 09:52:00 Lilly Rodriguez [facility] GBM AB, IGG (JOSH) 2024-08-14 09:51:00 Brad Weldon [facility] C4 COMPLEMENT 2024-08-14 09:51:00 Brad Weldon [facility] COMP. METABOLIC PANEL (30025) 2024-08-14 09:51:00 Brad Weldon [facility] BASIC METABOLIC PANEL (NA, K, CL, CO2, GLUCOSE, BUN, CREATININE, CA) 2024-08-13 21:03:00 Hossein [facility] BASIC METABOLIC PANEL (NA, K, CL, CO2, GLUCOSE, BUN, CREATININE, CA) 2024-08-13 09:04:00 Brittney Valdes [facility] CBC WITHOUT DIFF 2024-08-12 21:48:00 Hossein [facility] IR BIOPSY RENAL PERCUTANEOUS WITH ULTRASOUND 2024-08-12 20:00:56 Hossein [facility] MAGNESIUM 2024-08-11 08:26:00 [facility] COMP. METABOLIC PANEL ([id number]) 2024-08-11 08:26:00 [facility] WITH DIFF 2024-08-11 08:26:00 [facility] 2024-08-11 08:26:00 [facility] COMP. METABOLIC PANEL ([id number]) 2024-08-11 08:26:00 [facility] WITH DIFF 2024-08-11 08:26:00 Madi [facility] MRSA / MSSA SCREEN BY PCRJEFFREY 2024-08-10 22:05:00 Hossein [facility] MRSA / MSSA SCREEN BY PCRJEFFREY 2024-08-10 22:05:00 Hossein [facility] XR CHEST 1 VW 2024-08-10 17:19:24 Keely Miner [facility] XR CHEST 1 VW 2024-08-10 17:19:24 Keely Miner [facility] FL TIME OR (NON-REPORTABLE) 2024-08-10 16:25:00 [facility] (NON-REPORTABLE) 2024-08-10 16:25:00 [facility] PERMACATH PLAC[facility] 2024-08-10 15:18:00 Eliz [facility] PERMACATH PLACEMENT 2024-08-10 15:18:00 Eliz [facility] PHOSPHORUS 2024-08-10 09:21:00 Juan Cross [facility] MAGNESIUM 2024-08-10 09:21:00 Claudia Souza [facility] BASIC METABOLIC PANEL (NA, K, CL, CO2, GLUCOSE, BUN, CREATININE, CA) 2024-08-10 09:21:00 Libby [facility] CBC WITH DIFF 2024-08-10 09:21:00 Claudia Souza [facility] PROTHROMBIN TIME / INR 2024-08-10 09:21:00 Anorlando [facility] ACTIVATED PARTIAL THRMPLAS SAMANTHA 2024-08-10 09:21:00 Anorlando [facility] PHOSPHORUS 2024-08-10 09:21:00 Juan Cross [facility] MAGNESIUM 2024-08-10 09:21:00 Claudia Souza [facility] BASIC METABOLIC PANEL (NA, K, CL, CO2, GLUCOSE, BUN, CREATININE, CA) 2024-08-10 09:21:00 Claudia Souza [facility] CBC WITH DIFF 2024-08-10 09:21:00 Claudia Souza [facility] PROTHROMBIN TIME / INR 2024-08-10 09:21:00 Anorlando [facility] ACTIVATED PARTIAL THRMPLAS SAMANTHA 2024-08-10 09:21:00 Anorlando [facility] PHOSPHORUS 2024-08-09 08:53:00 [facility] 2024-08-09 08:53:00 AnJulio perry [facility] MAGNESIUM 2024-08-09 08:53:00 [facility] RHEUM[facility] FACTOR 2024-08-09 08:53:00 AnJulio perry [facility] C4 COMPLEMENT 2024-08-09 08:53:00 Anorlando [facility] BASIC METABOLIC PANEL (NA, K, CL, CO2, GLUCOSE, BUN, CREATININE, CA) 2024-08-09 08:53:00 [facility]FF 2024-08-09 08:53:00 Juan Cross [facility] ANTI-NUCLEAR ANTIBODY SCREEN 2024-08-09 08:53:00 Anwar [facility] HEPATITIS B SURFACE ANTIBODY 2024-08-09 08:53:00 Anwar [facility] HEPATITIS B SURFACE ANTIGEN 2024-08-09 08:53:00 Anwar [facility] HCV ANTIBODY 2024-08-09 08:53:00 Anorlando [facility] HBC ANTIBODY (IGM & IGG) 2024-08-09 08:53:00 AnMelinda perry [facility] PHOSPHORUS 2024-08-09 08:53:00 Anorlando [facility] URIC ACID 2024-08-09 08:53:00 Anorlando Julio [facility] MAGNESIUM 2024-08-09 08:53:00 Juan Cross [facility] RHEUMATOID FACTOR 2024-08-09 08:53:00 AnJuilo perry [facility] C4 COMPLEMENT 2024-08-09 08:53:00 Anorlando [facility] BASIC METABOLIC PANEL (NA, K, CL, CO2, GLUCOSE, BUN, CREATININE, CA) 2024-08-09 08:53:00 [facility] WITH [facility]FF 2024-08-09 08:53:00 Juan Cross [facility] ANTI-NUCLEAR ANTIBODY SCREEN 2024-08-09 08:53:00 Anwar, [facility] HEPATITIS B SURFACE ANTIBODY 2024-08-09 08:53:00 Anwar, [facility] HEPATITIS B SURFACE ANTIGEN 2024-08-09 08:53:00 Anwar, [facility] HCV ANTIBODY 2024-08-09 08:53:00 Anwar, [facility] HBC ANTIBODY (IGM & IGG) 2024-08-09 08:53:00 Anwar, [facility] ANTI-NUCLEAR ANTIBODY TITER 2024-08-09 08:53:00 Anwar, [facility] ANTI-SSA(RO) 2024-08-09 08:53:00 Anwar, [facility] ANTI-DOUBLE STRANDED DNA 2024-08-09 08:53:00 Anwar, [facility] ANTI-NUCLEAR ANTIBODY-PATHOLOGIST INTERPRETATION 2024-08-09 08:53:00 Anwar, [facility] ANCA SCREEN 2024-08-09 08:53:00 Anwar, [facility] UREA NITROGEN, URINE RANDOM 2024-08-09 08:45:00 Anwar, [facility] PROTEIN CREAT RATIO URINE RANDOM 2024-08-09 08:45:00 Anwar, [facility] UREA NITROGEN, URINE RANDOM 2024-08-09 08:45:00 Anwar, [facility] PROTEIN CREAT RATIO URINE RANDOM 2024-08-09 08:45:00 Anwar, [facility] PHOSPHORUS 2024-08-08 20:42:00 [facility] 2024-08-08 20:42[facility]00 [facility], [facility]INE RANDOM 2024-08-08 20:42:00 Brien Cross [facility] SODIUM, URINE RANDOM 2024-08-08 20:42:00 Dominga Cross i [facility] PHOSPHORUS 2024-08-08 20:42:00 [facility] URINE CULTURE 2024-08-08 20:42:00 Juan Cross [facility] CREATININE, URINE RANDOM 2024-08-08 20:42:00 Brien Cross [facility] SODIUM, URINE RANDOM 2024-08-08 20:42:00 Dominga Cross i [facility] CT THORAX WO CONTRAST 2024-08-08 18:35:07 Delano Schuster [facility] CT THORAX WO CONTRAST 2024-08-08 18:35:07 Delano Schuster [facility] CT ABDOMEN PELVIS WO CONTRAST 2024-08-08 18:14:52 Sophie Schuster [facility] CT ABDOMEN PELVIS WO CONTRAST 2024-08-08 18:14:52 Sophie Schuster [facility] COMP. METABOLIC PANEL (81609) 2024-08-08 17:06:00 Sophie Schuster [facility] CBC WITH DIFF 2024-08-08 17:06:00 [facility] 2024-08-08 17:06:00 Sophie Schuster [facility] COMP. METABOLIC PANEL ([id number]) 2024-08-08 17:06:00 Sophie Schuster [facility] CBC WITH DIFF 2024-08-08 17:06:00 Sophie [facility] 2024-08-08 17:06:00 Sophie Schuster [facility] URINE CULTURE 2024-08-06 20:39:00 Sheyla Trevizo [facility] URINALYSIS 2024-08-06 19:18:00 Sheyla Trevizo [facility] POCT SARS-COV-2 ANTIGEN (BINAX NOW) 2024-08-06 19:13:00 Sheyla Trevizo [facility] POCT URINALYSIS 2024-08-06 19:11:00 Sheyla Trevizo U [facility] POCT MOLECULAR FLU 2024-08-06 18:36:00 Sheyla Trevizo [facility] FLU VACC(),65+YR,0.5 ML,IM,ADJUVANTED,TIV(FLUAD ) 2024-07-09 21:55:34 Raul Pryor [facility] CBC WITH DIFF 2024-07-09 19:33:00 Raul Pryor [facility] PHYSICIAN ORDERS 2024-06-17 19:52:58 Doctor Debbies signed, [place] [facility] PHYSICIAN ORDERS 2024-06-08 17:22:11 Doctor Unas signed, [place] [facility] REFERRAL- REQUEST/RESPONSE 2024-05-12 15:59:09 D isidroor Unassigned, [place] [facility] US RETROPERITONEAL COMPLETE 2024-03-30 14:08:20 Julio Catalan [facility] BASIC METABOLIC PANEL (NA, K, CL, CO2, GLUCOSE, BUN, CREATININE, CA) 2024-03-10 00:32:00 Quintin Ordonez [facility] CBC WITH DIFF 2024-03-10 00:32:00 Quintin Ordonez [facility] PHYSICIAN ORDERS 2024-01-29 05:01:00 Doctor Cheryl signed, [place] [facility] DME/SUPPLY JUSTIFICATION 2023-09-29 06:01:00 Doc tor Unassigned, [place] [facility] TRANSTHORACIC ECHO (TTE) COMPLETE W/ CONTRAST 2023-08-08 17:19:00 María Elena Cowan [facility] XR HAND 3+ VW LEFT 2023-06-04 15:07:00 Sheyla Trevizo [facility] URIC ACID 2023-05-19 18:21:00 [facility] 2023-05-19 18:21:00 Arlin Benson [facility] XR WRIST <3 VW LEFT 2023-05-19 18:07:18 Arlin [facility] 2023-04-10 08:03:00 Son Zamora [facility] BASIC METABOLIC PANEL (NA, K, CL, CO2, GLUCOSE, BUN, CREATININE, CA) 2023-04-10 08:03:00 Son Zamora [facility] CBC WITH DIFF 2023-04-10 08:03:00 [facility]-BNP 2023-04-10 08:03:00 Demetrius Zamora [facility] HB ECG ROUTINE & RHYTHM STRIP 2023-04-09 20:19:12 Juan Cross [facility] MAGNESIUM 2023-04-09 16:41:00 Tay [facility] TROPONIN I 2023-04-09 16:41:00 Tay [facility] BASIC METABOLIC PANEL (NA, K, CL, CO2, GLUCOSE, BUN, CREATININE, CA) 2023-04-09 16:41:00 Tay [facility] TRANSTHORACIC ECHO (TTE) COMPLETE W/ CONTRAST 2023-04-09 15:45:00 Tay [facility] DUPLEX VENOUS LEGS BILATERAL - BY VASCULAR LAB 2023-04-09 15:08:00 Linda Byrne [facility] XR CHEST 1 VW 2023-04-09 01:19:50 [facility] MAGNESIUM 2023-04-08 23:26:00 Tay [facility] TROPONIN I 2023-04-08 23:26:00 Tay [facility] BASIC METABOLIC PANEL (NA, K, CL, CO2, GLUCOSE, BUN, CREATININE, CA) 2023-04-08 23:26:00 [facility] 2023-04-08 23:26:00 Tay [facility] N-TERMINAL PRO-BNP 2023-04-08 23:26:00 Tay [facility] MEDICATION CORRESPONDENCE 2022-12-05 06:01:00 Do ctor Unassigned, [place] [facility] ASSIGNMENT OF BENEFITS 2022-11-27 19:55:56 Docto r Unassigned, [place] [facility] REFERRAL- REQUEST/RESPONSE 2022-10-07 06:01:00 D isidroor Unassigned, [place] [facility] DME/SUPPLY JUSTIFICATION 2022-08-26 05:01:00 Doc shaquille Unassigned, [place] [facility] FLU VACC(),65+YR,0.5 ML,IM,ADJUVANTED,QUAD(FLUA D) 2022-08-09 20:04:51 María Elena Cowan [facility] HB ECG ROUTINE & RHYTHM STRIP 2022-08-09 19:20:31 María Elena Cowan [facility] DME/SUPPLY JUSTIFICATION 2022-08-09 05:01:00 Spencer corbin Unassigned, [place] [facility] HOME HEALTH - OTHER 2017-06-11 05:01:00 Doctor U nassigned, [place] [facility] HEALTH - OTHER 2017-06-05 05:01:00 Doctor U nassigned, [place] [facility] KNEE, 2 VIEWS 2017-05-26 18:41:00 Rizwana [facility]hler [facility] 2017-05-26 05:01:00 Doctor Un assigned, [place] [facility] SET UP AND LAY OUT INSPECTOR ATTESTATION 2017-05-26 05:01:00 Doctor Unassigned, [place] [facility] CONSENT/REFUSAL FOR DIAGNOSIS AND TREATMENT 2017-05-02 17:15:05 Doctor Unassigned, [place] [facility] ASSIGNMENT OF BENEFITS 2017-05-02 17:14:45 Dino guzman Unassigned, [place] [facility] INSURANCE CORRESPONDENCE 2017-05-01 05:01:00 Spencer corbin Unassigned, [place] [facility] DSU PRE-OP 2017-05-01 05:01:00 Doctor Unass igned, [place] [facility] REFERRAL- REQUEST/RESPONSE 2017-04-29 05:01:00 D eugenia Unassigned, [place] [facility] Encounters Start Date/Time End Date/Time Encounter Type Admission Type Attending [facility] Care Department Encounter ID Source 2024-05-12 00:00:00 2024-12-25 07:23:09 Orders Only Doctor Unassigned, [place] Doctor Unassigned, [place] [facility] 1.2.840.114 350.1.13.10 4.2.7.2.686 [id number] [id number] [facility] 2024-06-08 00:00:00 2024-12-25 07:13:22 Orders Only Doctor Unassigned, [place] Doctor Unassigned, [place] [facility] ([place]) 1.2.840.114 350.1.13.10 4.2.7.2.686 [id number] [id number] [facility] 2024-06-17 00:00:00 2024-12-25 07:10:31 Orders Only Doctor Unassigned, [place] Doctor Unassigned, [place] [facility] ([place]) 1.2.840.114 350.1.13.10 4.2.7.2.686 [id number] [id number] [facility] 2024-09-15 00:00:00 2024-12-25 06:41:00 Orders Only Doctor Unassigned, [place] Doctor Unassigned, [place] [facility] ([place]) 1.2.840.114 350.1.13.10 4.2.7.2.686 [id number] [facility] 2017-05-01 00:00:00 2024-12-25 03:45:40 Orders Only Doctor Unassigned, [place] Doctor Unassigned, [place] [facility] ([place]) 1.2.840.114 350.1.13.10 4.2.7.2.686 [id number] [id number] [facility] 2017-05-26 00:00:00 2024-12-25 03:43:34 Orders Only Doctor Unassigned, [place] Doctor Unassigned, [place] [facility] ([place]) 1.2.840.114 350.1.13.10 4.2.7.2.686 [id number] [facility] 2017-06-09 00:00:00 2024-12-25 03:42:12 Orders Only Doctor Unassigned, [place] Doctor Unassigned, [place] [facility] ([place]) 1.2.840.114 350.1.13.10 4.2.7.2.686 [id number] [id number] [facility] 2017-07-10 00:00:00 2024-12-25 03:39:42 Orders Only Doctor Unassigned, [place] Doctor Unassigned, [place] [facility] ([place]) 1.2.840.114 350.1.13.10 4.2.7.2.686 [id number] [id number] [facility] 2024-03-08 00:00:00 2024-12-25 02:09:17 Orders Only Westbrook, Krystyna Westbrook, Krystyna [facility] 1.2840.114 350.1.13.10 4.2.7.2.686 [id number] [facility] 2024-12-21 08:00:00 2024-12-21 13:30:00 Nurse Visit 2, Amanda-Vl Infusion Chair Melo Choe K 2, Amanda-Vl Infusion Chair [facility] 1.20.114 350.1.13.10 4.2.7.2.686 [id number] [facility] 2024-12-21 08:00:00 2024-12-21 08:00:00 Outpatient MELO MARIN [facility] [id number] [facility] 2024-12-16 13:30:00 2024-12-16 13:56:54 Outpatient YOGI DONIS [facility] [id number] [facility] 2024-12-16 13:30:00 2024-12-16 13:56:54 Office Visit Yogi French [facility] 1.20.114 350.1.13.10 4.2.7.2.686 [id number] [facility] 2024-12-09 07:27:00 2024-12-09 11:20:00 Outpatient R YOGI FRENCH [facility] [id number] [facility] 2024-12-09 07:27:00 2024-12-09 11:20:00 Hospital Encounter Yogi French [facility] 1.2.840.114 350.1.13.10 4.2.7.2.686 [id number] [facility] 2024-12-09 08:50:00 2024-12-09 11:19:00 Surgery Yogi French [facility] 1.2.840.114 350.1.13.10 4.2.7.2.686 [id number] [facility] 2024-12-07 11:15:00 2024-12-07 11:30:00 Lining Folder Visit Pob, Adc Lab Main Trace Frenchiq Pob, Adc Lab Main [facility] 1.2840.114 350.1.13.10 4.2.7.2.686 [id number] [facility] 2024-12-07 11:15:00 2024-12-07 11:15:00 Outpatient R TRACE FRENCHIQ [facility] [id number] [facility] 2024-11-25 15:45:00 2024-11-25 15:52:09 Outpatient R TRACE FRENCHIQ [facility] [id number] [facility] 2024-11-25 15:45:00 2024-11-25 15:52:09 Office Visit Yogi French [facility] 1.2840.114 350.1.13.10 4.2.7.2.686 [id number] [facility] 2024-11-23 08:00:00 2024-11-23 13:30:00 Nurse Visit 2, Amanda-Vl Infusion Chair Melo Choe 2, Amanda-Vl Infusion Chair [facility] 1.2.840.114 350.1.13.10 4.2.7.2.686 [id number] [facility] 2024-11-23 08:00:00 2024-11-23 08:00:00 Outpatient R MELO CHOE [facility] [id number] [facility] 2024-11-11 14:30:00 2024-11-11 14:55:20 Outpatient R SHEYLA TREVIZO [facility] [id number] [facility] 2024-11-11 14:30:00 2024-11-11 14:55:20 Office Visit Santhosh She[facility] 1.2840.114 350.1.13.10 4.2.7.2.686 [id number] [facility] 2024-10-28 00:00:00 2024-10-28 11:12:28 Telephone Sheyla Trevizo [facility] 1.2.840.114 350.1.13.10 4.2.7.2.686 [id number] [facility] 2024-10-26 08:00:00 2024-10-26 13:30:00 Nurse Visit 1, Amanda-Vl Infusion Chair Melo Choe 1, Amanda-Vl Infusion Chair [facility] 1.2840.114 350.1.13.10 4.2.7.2.686 [id number] [facility] 2024-10-26 08:00:00 2024-10-26 08:00:00 Outpatient R MELO CHOE [facility] [id number] [facility] 2024-09-26 12:48:00 2024-09-26 14:16:00 Emergency X URSULA KIM [facility] [id number] [facility] 2024-09-26 12:48:00 2024-09-26 14:16:00 Emergency Ursula Kim [facility] [id number] 350.1.13.10 4.2.7.2.686 [id number] [facility] 2024-09-21 13:30:00 2024-09-21 14:24:38 [facility] [id number] 2024-09-21 13:30:00 2024-09-21 14:24:38 Office Visit María Elena Cowan [facility] 1.2840.114 350.1.13.10 4.2.7.2.686 [id number] [facility] 2024-09-16 10:00:00 2024-09-16 15:30:00 Nurse Visit 2, Amanda-Vl Infusion Chair Julio Catalan 2, Amanda-Vl Infusion Chair [facility] [id number] 350.1.13.10 4.2.7.2.686 [id number] 053 [id number] [facility] 2024-09-16 00:00:00 2024-09-16 12:30:[address] [facility] 1.2.840.114 350.1.13.10 4.2.7.2.686 [id number] 093 [id number] [facility] 2024-09-16 10:00:00 2024-09-16 10:00:00 Outpatient R JULIO CATALAN NAVEED NVET[facility]INA [facility] [id number] [facility] 2024-09-15 00:00:00 2024-09-15 09:28:15 Telephone María Elena Cowan [facility] BUILD[facility] 1..840.114 350.1.13.10 4.2.7.2.686 [id number] [id number] [facility] 2024-09-14 08:51:40 2024-09-14 23:59:00 Outpatient R FAISAL COWANMALIK [facility] [id number] [facility] 2024-09-14 08:51:40 2024-09-14 23:59:00 Hospital Encounter Faisal Cowanmalik SheridanSheri [facility] BUILD[facility] 1..840.114 350.1.13.10 4.2.7.2.686 [id number] [facility] 2024-09-09 10:00:00 2024-09-09 10:05:33 Outpatient R KEVEN NICKI [facility] [id number] [facility] 2024-09-09 10:00:00 2024-09-09 10:05:33 Office Visit Nicki Baca [facility] 1..840.114 350.1.13.10 4.2.7.2.686 [id number] 044 [id number] [facility] 2024-09-03 15:00:00 2024-09-03 15:00:00 Outpatient R COWAN, MARÍA ELENA [facility] [id number] [facility] 2024-09-02 00:00:00 2024-09-02 13:22:28 Refill [facility] [place] OFF[facility] BUILD[facility] 1..840.114 350.1.13.10 4.2.7.2.686 [id number] 044 [id number] [facility] 2024-08-26 00:00:00 2024-08-31 12:15:34 Telephone Sheyla Trevizo [facility] 1.2840.114 350.1.13.10 4.2.7.2.686 [id number] 044 [id number] [facility] 2024-08-26 11:00:00 2024-08-26 11:40:19 Outpatient R EDOUARD BACAN [facility] [id number] [facility] 2024-08-26 11:00:00 2024-08-26 11:40:19 Office Visit Keven Nicki [facility] 1.0.114 350.1.13.10 4.2.7.2.686 [id number] 044 [id number] [facility] 2024-08-24 00:00:00 2024-08-25 07:57:57 Refill Sheyla Trevizo [facility] BU[facility] 1.84.114 350.1.13.10 4.2.7.2.686 [id number] 044 [id number] [facility] 2024-08-20 08:30:00 2024-08-20 08:30:00 Outpatient R TORSTEN MAZARIEGOS [facility] [id number] [facility] 2024-08-08 11:49:00 2024-08-18 17:15:00 Inpatient X JUAN CROSS [facility] [id number] [facility] 2024-08-08 11:49:00 2024-08-18 17:15:00 Hospital Encounter Sophie Schuster Jelani [facility] 1.20.114 350.1.13.10 4.2.7.2.686 [id number] 081 [id number] [facility] 2024-08-13 00:00:00 2024-08-13 14:25:44 Letter (Out) [facility] 1.2840.114 350.1.13.10 4.2.7.2.686 [id number] 019 [id number] [facility] 2024-08-12 13:30:00 2024-08-12 23:59:00 Hospital Encounter Julio Catalan [facility] 1.2.840.114 350.1.13.10 4.2.7.2.686 [id number] [id number] [facility] 2024-08-10 00:00:00 2024-08-12 09:48:46 Telephone Sheyla Trevizo [facility] BU[facility] 1.2.840.114 350.1.13.10 4.2.7.2.686 [id number] 044 [id number] [facility] 2024-08-10 11:25:00 2024-08-10 12:53:00 Surgery Keely Miner [facility] 1.2.840.114 350.1.13.10 4.2.7.2.686 [id number] 020 [id number] [facility] 2024-08-06 14:08:12 2024-08-06 23:59:00 Hospital Encounter [facility] 1.2.840.114 350.1.13.10 4.2.7.2.686 [id number] [id number] [facility] 2024-08-06 14:30:00 2024-08-06 14:45:00 Lining Folder Visit Lab, Ang - Sheyla Bolanos Lab, Ang - Matt [facility] BU[facility] 1.2.840.114 350.1.13.10 4.2.7.2.686 [id number] [facility] 2024-08-06 13:00:00 2024-08-06 14:07:34 Outpatient R SHEYLA TREVIZO [facility] [id number] [facility] 2024-08-06 13:00:00 2024-08-06 14:07:34 Office Visit Sheyla Trevizo [facility] MED[facility] OFFICE BUILDING 1.840.114 350.1.13.10 4.2.7.2.686 [id number] 044 [id number] [facility] 2024-07-31 00:00:00 2024-08-02 14:36:23 Refill Sheyla Trevizo [facility] BUILD[facility] 1.84.114 350.1.13.10 4.2.7.2.686 [id number] 044 [id number] [facility] 2024-07-09 14:30:00 2024-07-09 14:45:00 Lining Folder Visit Lab, Raul Diane Lab, Reilly Gutierrez [facility] 1.840.114 350.1.13.10 4.2.7.2.686 [id number] [facility] 2024-07-09 14:00:00 2024-07-09 14:27:45 Outpatient R RAUL PRYOR [facility] [id number] [facility] 2024-07-09 14:00:00 2024-07-09 14:27:45 Office Visit Raul Pryor [facility] BUILD[facility] 1..840.114 350.1.13.10 4.2.7.2.686 [id number] 044 [id number] [facility] 2024-07-08 00:00:00 2024-07-08 12:19:06 Telephone Sheyla Trevizo [facility] BU[facility] 1.840.114 350.1.13.10 4.2.7.2.686 [id number] 044 [id number] [facility] 2024-07-02 00:00:00 2024-07-05 09:54:54 Refill Sheyla Trevizo [facility] 1.2.840.114 350.1.13.10 4.2.7.2.686 [id number] 044 [id number] [facility] 2024-07-02 00:00:00 2024-07-02 11:46:19 Refill Sheyla Trevizo [facility] 1.2.840.114 350.1.13.10 4.2.7.2.686 [id number] 044 [id number] [facility] 2024-07-01 00:00:00 2024-07-01 14:10:50 Pre Visit Outreach Monica Armstrong Clairelle D [facility] 1.2.840.114 350.1.13.10 4.2.7.2.686 [id number] 082 [id number] [facility] 2024-06-07 00:00:00 2024-06-07 16:21:14 Telephone María Elena Cowan [facility] 1.2.840.114 350.1.13.10 4.2.7.2.686 [id number] 059 [id number] [facility] 2024-06-04 13:15:00 2024-06-04 13:30:00 Lining Folder Visit 2, Adc Lab Julio Catalan [facility] 1.2.840.114 350.1.13.10 4.2.7.2.686 [id number] [facility] 2024-06-04 13:15:00 2024-06-04 13:15:00 Outpatient R JULIO CATALAN NAVEED [facility] [id number] [facility] 2024-05-03 14:00:00 2024-05-03 14:30:04 Outpatient R MARÍA ELENA COWAN [facility] [id number] [facility] 2024-05-03 14:00:00 2024-05-03 14:30:04 Office Visit María Elena Cowan [facility] BUILD[facility] 1.2.840.114 350.1.13.10 4.2.7.2.686 [id number] 059 [id number] [facility] 2024-04-27 00:00:00 2024-04-27 12:37:07 Telephone Sheyla Trevizo [facility] MED[facility] OFFICE BUILDING 1..840.114 350.1.13.10 4.2.7.2.686 [id number] 044 [id number] [facility] 2024-04-14 00:00:00 2024-04-16 11:39:05 Refill María Elena Cowan [facility] OFF[facility] BUILD[facility] 1.2.840.114 350.1.13.10 4.2.7.2.686 [id number] 044 [id number] [facility] 2024-04-12 14:30:00 2024-04-12 14:32:39 Outpatient R JULIO CATALAN [facility] [id number] [facility] 2024-04-12 14:30:00 2024-04-12 14:32:39 Lining Folder Visit 2, Adc Lab Hossein [facility] BUILDING 1.2.840.114 350.1.13.10 4.2.7.2.686 [id number] [facility] 2024-03-30 08:02:32 2024-03-30 23:59:00 Outpatient R JULIO CATALAN [facility] [id number] [facility] 2024-03-30 08:02:32 2024-03-30 23:59:00 Hospital Encounter Hossein [facility] 1.2.840.114 350.1.13.10 4.2.7.2.686 [id number] [facility] 2024-03-24 09:00:00 2024-03-24 09:10:41 Outpatient R JULIO CATALAN [facility] [id number] [facility] 2024-03-24 09:00:00 2024-03-24 09:10:41 Lining Folder Visit 2, Adc Lab Hossein [facility] 1.2.840.114 350.1.13.10 4.2.7.2.686 [id number] [facility] 2024-03-11 00:00:00 2024-03-11 00:00:00 Telephone María Elena Cowan [facility] 1.2.840.114 350.1.13.10 4.2.7.2.686 [id number] 059 [id number] [facility] 2024-03-09 18:26:00 2024-03-09 20:55:00 Emergency Quintin Ordonez [facility] 1.2.840.114 350.1.13.10 4.2.7.2.686 [id number] [id number] [facility] 2024-03-09 13:15:00 2024-03-09 14:50:54 Outpatient R SHEYLA TREVIZO [facility] [id number] [facility] 2024-03-09 13:15:00 2024-03-09 13:30:00 Lining Folder Visit Lab, Sheyla Macias [facility] 1.2.840.114 350.1.13.10 4.2.7.2.686 [id number] 353 [id number] [facility] 2024-03-09 13:15:00 2024-03-09 13:15:00 Outpatient R SHEYLA TREVIZO [facility] [id number] [facility] 2024-03-09 00:00:00 2024-03-09 00:00:00 Letter (Out) [facility] 1.284.114 350.1.13.10 4.2.7.2.686 [id number] 019 [id number] [facility] 2024-03-08 16:00:00 2024-03-08 16:15:00 Lining Folder Visit Lab, Reilly Pryor [facility] MEDICAL OFFICE BUILDING 1.840.114 350.1.13.10 4.2.7.2.686 [id number] 353 [id number] [facility] 2024-03-08 15:30:00 2024-03-08 16:06:40 Outpatient R RAUL PRYOR [facility] [id number] [facility] 2024-03-08 15:30:00 2024-03-08 16:06:40 Office Visit Roya Raul [facility] MED[facility] OFFICE BUILDING 1.840.114 350.1.13.10 4.2.7.2.686 [id number] 044 [id number] [facility] 2024-01-29 00:00:00 2024-01-29 00:00:00 Orders Only Doctor Unassigned, [place] [facility] 1.84.114 350.1.13.10 4.2.7.2.686 [id number] [facility] 2024-01-28 14:00:00 2024-01-28 14:30:00 Office Visit Rosenda Marie [facility] NAL BUILDING 1.84.114 350.1.13.10 4.2.7.2.686 [id number] [id number] [facility] 2024-01-28 14:00:00 2024-01-28 14:00:00 Outpatient R ROSENDA MARIE STRAHIL [facility] [id number] [facility] 2024-01-08 00:00:00 2024-01-08 00:00:00 Patient Secure Msg Doctor Unassigned, [place] [facility] 1.2840.114 350.1.13.10 4.2.7.2.686 [id number] 019 [id number] [facility] 2024-01-07 00:00:00 2024-01-07 00:00:00 Telephone Raul Pryor [facility] 1.2840.114 350.1.13.10 4.2.7.2.686 [id number] 044 [id number] [facility] 2024-01-07 00:00:00 2024-01-07 00:00:00 Letter (Out) [facility] 1.2840.114 350.1.13.10 4.2.7.2.686 [id number] 019 [id number] [facility] 2024-01-07 00:00:00 2024-01-07 00:00:00 Patient Secure Msg Doctor Unassigned, [place] [facility] 1.2840.114 350.1.13.10 4.2.7.2.686 [id number] [id number] [facility] 2024-01-06 16:30:00 2024-01-06 16:45:00 Lining Folder Visit Lab, Reilly - Raul Mayorga [facility] 1.2.840.114 350.1.13.10 4.2.7.2.686 [id number] [facility] 2024-01-06 16:30:00 2024-01-06 16:30:00 Outpatient R RAUL PRYOR [facility] [id number] [facility] 2024-01-06 15:30:00 2024-01-06 16:18:38 Office Visit Raul Pryor [facility] 1.2840.114 350.1.13.10 4.2.7.2.686 [id number] 044 [id number] [facility] 2023-12-28 00:00:00 2023-12-28 00:00:00 Refill Sheyla Trevizo [facility] MED[facility] OFF[facility] BUILDING 1.2840.114 350.1.13.10 4.2.7.2.686 [id number] 044 [id number] [facility] 2023-12-24 00:00:00 2023-12-24 00:00:00 Letter (Out) [facility] 1.2840.114 350.1.13.10 4.2.7.2.686 [id number] 019 [id number] [facility] 2023-12-19 00:00:00 2023-12-19 00:00:00 Patient Secure Msg Sheyla Trevizo [facility] MED[facility] OFF[facility] BUILDING 1.2840.114 350.1.13.10 4.2.7.2.686 [id number] 044 [id number] [facility] 2023-12-15 00:00:00 2023-12-15 00:00:00 Letter (Out) [place] [address].2840.114 350.1.13.10 4.2.7.2.686 [id number] 019 [id number] [facility] 2023-12-11 00:00:00 2023-12-11 00:00:00 Patient Secure Msg Doctor Unassigned, [place] [facility] 1.2840.114 350.1.13.10 4.2.7.2.686 [id number] 019 [id number] [facility] 2023-12-09 16:42:37 2023-12-09 23:59:00 Outpatient RAUL LANGFORD [facility] [id number] [facility] 2023-12-09 16:42:37 2023-12-09 23:59:00 Hospital Encounter Raul Pryor [facility] 1.20.114 350.1.13.10 4.2.7.2.686 [id number] [facility] 2023-12-09 16:00:00 2023-12-09 16:39:03 Office Visit Raul Pryor [facility] 1.20.114 350.1.13.10 4.2.7.2.686 [id number] 044 [id number] [facility] 2023-12-05 14:40:00 2023-12-05 16:11:00 Emergency X LUNA ALMEIDA [facility] [id number] [facility] 2023-12-05 14:40:00 2023-12-05 16:11:00 Emergency Luna Almeida [facility] 1..114 350.1.13.10 4.2.7.2.686 [id number] 084 [id number] [facility] 2023-12-05 00:00:00 2023-12-05 00:00:00 Refill Sheyla Trevizo [facility] MEDICAL OFFICE BUILDING 1.114 350.1.13.10 4.2.7.2.686 [id number] 044 [id number] [facility] 2023-12-05 00:00:00 2023-12-05 00:00:00 Nurse Triage Gisela Danielson [facility] 1..114 350.1.13.10 4.2.7.2.686 [id number] 019 [id number] [facility] 2023-12-04 00:00:00 2023-12-04 00:00:00 Telephone Rosenda Marie [facility] NAL BUILDING 1.2.114 350.1.13.10 4.2.7.2.686 [id number] [id number] [facility] 2023-12-03 14:00:00 2023-12-03 14:00:00 Outpatient R ROSENDA MARIE STRAHIL [facility] [id number] [facility] 2023-09-29 00:00:00 2023-09-29 00:00:00 Orders Only Doctor Unassigned, [place] [facility] 1.2840.114 350.1.13.10 4.2.7.2.686 [id number] [facility] 2023-09-04 00:00:00 2023-09-04 00:00:00 Refill Sheyla Trevizo [facility] 1..840.114 350.1.13.10 4.2.7.2.686 [id number] 044 [id number] [facility] 2023-08-08 11:42:36 2023-08-08 23:59:00 Hospital Encounter María Elena Cowan [facility] 1.284.114 350.1.13.10 4.2.7.2.686 [id number] [facility] 2023-08-08 11:42:36 2023-08-08 23:59:00 Outpatient R MARÍA ELENA COWAN [facility] [id number] [facility] 2023-08-08 14:00:00 2023-08-08 14:28:03 Office Visit María Elena Cowan [facility] NAL BUILDING 1..84.114 350.1.13.10 4.2.7.2.686 [id number] [id number] [facility] 2023-06-24 15:00:00 2023-06-24 15:00:00 Outpatient R ELMO DUARTE [facility] [id number] [facility] 2023-06-04 09:35:59 2023-06-04 23:59:00 Hospital Encounter She[facility] MEDICAL OFFICE BUILDING 1.84114 350.1.13.10 4.2.7.2.686 [id number] [facility] 2023-06-04 09:00:00 2023-06-04 12:09:45 Outpatient R SHEYLA TREVIZO [facility] [id number] [facility] 2023-06-04 09:00:00 2023-06-04 12:09:45 Office Visit Sheyla Trevizo [facility] MED[facility] OFFICE BUILDING 1.84.114 350.1.13.10 4.2.7.2.686 [id number] 044 [id number] [facility] 2023-06-02 00:00:00 2023-06-02 00:00:00 Refill Shelleyhenry Raul [facility] OFF[facility] BUILDING 1.84.114 350.1.13.10 4.2.7.2.686 [id number] 044 [id number] [facility] 2023-05-19 12:46:37 2023-05-19 23:59:00 Outpatient R MARCELINO ARLIN [facility] [id number] [facility] 2023-05-19 12:46:37 2023-05-19 23:59:00 Hospital Encounter Marcelino Arlin [facility] OFF[facility] BUILDING 1..114 350.1.13.10 4.2.7.2.686 [id number] [id number] [facility] 2023-05-19 13:30:00 2023-05-19 13:46:01 Lining Folder Visit Lab, [facility] BUILD[facility] 1..114 350.1.13.10 4.2.7.2.686 [id number] 353 [id number] [facility] 2023-05-19 12:20:00 2023-05-19 13:03:36 Urgent Care Arlin Benson Unknown, Attending [facility] OFFICE BUILDING 1.2.840.114 350.1.13.10 4.2.7.2.686 [id number] [facility] 2023-05-19 12:15:00 2023-05-19 12:15:00 Outpatient R UNKNOWN, ATTENDING [facility] [id number] [facility] 2023-05-04 00:00:00 2023-05-04 00:00:00 Refill Sheyla Trevizo [facility] OFFICE BUILDING 1..840.114 350.1.13.10 4.2.7.2.686 [id number] 044 [id number] [facility] 2023-04-29 13:40:00 2023-04-29 14:20:00 Office Visit Brenda Santos [facility] 1..840.114 350.1.13.10 4.2.7.2.686 [id number] 059 [id number] [facility] 2023-04-29 13:40:00 2023-04-29 13:40:00 Outpatient R BRENDA SANTOS [facility] [id number] [facility] 2023-04-29 00:00:00 2023-04-29 00:00:00 Telephone Brenda Santos [facility] BUILDING 1.2840.114 350.1.13.10 4.2.7.2.686 [id number] 059 [id number] [facility] 2023-04-21 14:30:00 2023-04-21 14:45:00 Lining Folder Visit 2, Adc Lab Brenda Santos [facility] 1.2.840.114 350.1.13.10 4.2.7.2.686 [id number] [facility] 2023-04-21 13:40:00 2023-04-21 14:03:45 Outpatient R BRENDA SANTOS [facility] [id number] [facility] 2023-04-21 13:40:00 2023-04-21 14:03:45 Office Visit Brenda Santos [facility] BUILDING 1.2.840.114 350.1.13.10 4.2.7.2.686 [id number] [id number] [facility] 2023-04-18 15:00:00 2023-04-18 15:01:33 Outpatient R SHEYLA TREVIZO [facility] [id number] [facility] 2023-04-18 15:00:00 2023-04-18 15:01:33 Office Visit Sheyla Trevizo [facility] 1.2.840.114 350.1.13.10 4.2.7.2.686 [id number] [id number] [facility] 2023-04-11 00:00:00 2023-04-11 00:00:00 Transition of Care Lyndon Huizar 1.2.840.114 350.1.13.10 4.2.7.2.686 [id number] [facility] 2023-04-08 17:23:00 2023-04-10 13:35:00 Hospital Encounter Juan Cross [facility] 1.2840.114 350.1.13.10 4.2.7.2.686 [id number] [facility] 2023-04-08 15:00:00 2023-04-09 15:17:33 Outpatient R BRENDA SANTOS [facility] [id number] [facility] 2023-04-09 00:00:00 2023-04-09 00:00:00 Telephone María Elena Cowan [facility] 1.2.840.114 350.1.13.10 4.2.7.2.686 [id number] [facility] 2023-04-08 15:00:00 2023-04-08 15:40:00 Office Visit Brenda Santos [facility] 1.2.840.114 350.1.13.10 4.2.7.2.686 [id number] [facility] 2023-04-04 08:00:00 2023-04-04 08:15:00 Lining Folder Visit Lab, Reilly - Sheyla Bolanos [facility] 1.2.840.114 350.1.13.10 4.2.7.2.686 [id number] [facility] 2023-04-04 07:30:00 2023-04-04 07:54:12 Outpatient R SHEYLA TREVIZO [facility] [id number] [facility] 2023-04-04 07:30:00 2023-04-04 07:54:12 Office Visit Sheyla Trevizo [facility] 1.2.840.114 350.1.13.10 4.2.7.2.686 [id number] [facility] 2023-04-03 00:00:00 2023-04-03 00:00:00 Telephone María Elena Cowan [facility] 1.2.840.114 350.1.13.10 4.2.7.2.686 [id number] [facility] 2023-03-06 00:00:00 2023-03-06 00:00:00 Telephone Sheyla Trevizo [facility] 1.2840.114 350.1.13.10 4.2.7.2.686 [id number] [facility] 2023-02-01 00:00:00 2023-02-01 00:00:00 Refill Jarrett Coronado [facility] 1.2840.114 350.1.13.10 4.2.7.2.686 [id number] [facility] 2023-01-27 00:00:00 2023-01-27 00:00:00 Refill Sheyla Trevizo [facility] 1.2840.114 350.1.13.10 4.2.7.2.686 [id number] [facility] 2023-01-22 00:00:00 2023-01-22 00:00:00 Refill Cliff Jarrett [facility] 1.2.840.114 350.1.13.10 4.2.7.2.686 [id number] [facility] 2022-12-05 00:00:00 2022-12-05 00:00:00 Telephone Rosenda Marie [facility] 1.2840.114 350.1.13.10 4.2.7.2.686 [id number] [facility] 2022-12-05 00:00:00 2022-12-05 00:00:00 Orders Only Doctor Unassigned, [place] [facility] 1.2.840.114 350.1.13.10 4.2.7.2.686 [id number] [facility] 2022-11-27 14:00:00 2022-11-27 14:23:44 Outpatient R ROSENDA MARIE STRAHIL [facility] [id number] [facility] 2022-11-27 14:00:00 2022-11-27 14:23:44 Office Visit Rand Mariesusanne Pricilla [facility] [id number] 350.1.13.10 4.2.7.2.686 [id number] [facility] 2022-11-27 00:00:00 2022-11-27 00:00:00 Orders Only Doctor Unassigned, [place] [facility] 1.114 350.1.13.10 4.2.7.2.686 [id number] [facility] 2022-11-20 09:30:00 2022-11-20 09:30:00 Outpatient R ROSENDA MARIE STRAHIL [facility] [id number] [facility] 2022-11-13 00:00:00 2022-11-13 00:00:00 Telephone RikyrikkishitalRamónkayley Pleietz [facility] 1.84114 350.1.13.10 4.2.7.2.686 [id number] [facility] 2022-11-13 00:00:00 2022-11-13 00:00:00 Telephone Sheyla Trevizo [facility] 1.84.114 350.1.13.10 4.2.7.2.686 [id number] [facility] 2022-10-23 00:00:00 2022-10-23 00:00:00 Refill Sheyla Trevizo [facility] 1.284.114 350.1.13.10 4.2.7.2.686 [id number] [facility] 2022-10-07 00:00:00 2022-10-07 00:00:00 Orders Only Doctor Unassigned, [place] [facility] 1.2.840.114 350.1.13.10 4.2.7.2.686 [id number] [id number] [facility] 2022-09-10 00:00:00 2022-09-10 00:00:00 Telephone Sheyla Trevizo [facility] 1.2840.114 350.1.13.10 4.2.7.2.686 [id number] [facility] 2022-08-26 00:00:00 2022-08-26 00:00:00 Orders Only Doctor Unassigned, [place] [facility] 1.2840.114 350.1.13.10 4.2.7.2.686 [id number] [id number] [facility] 2022-08-15 00:00:00 2022-08-15 00:00:00 Telephone María Elena Cowan [facility] 1.2.840.114 350.1.13.10 4.2.7.2.686 [id number] [id number] [facility] 2022-08-12 09:15:00 2022-08-12 09:30:00 Lining Folder Visit 2, Adc Lab María Elena Cowan [facility] 1.2.840.114 350.1.13.10 4.2.7.2.686 [id number] [facility] 2022-08-12 09:15:00 2022-08-12 09:15:00 Outpatient R MARÍA ELENA COWAN [facility] [id number] [facility] 2022-08-09 14:00:00 2022-08-09 14:48:42 Outpatient R COWAN, MARÍA ELENA [facility] [id number] [facility] 2022-08-09 14:00:00 2022-08-09 14:48:42 Office Visit María Elena Cowan [facility] BUILD[facility] 1.840.114 350.1.13.10 4.2.7.2.686 [id number] [facility] 2022-08-09 14:00:00 2022-08-09 14:00:00 Outpatient R MARÍA ELENA COWAN [facility] [id number] [facility] 2022-08-09 14:00:00 2022-08-09 14:00:00 Outpatient R MARÍA ELENA COWAN [facility] [id number] [facility] 2022-08-09 00:00:00 2022-08-09 00:00:00 Telephone Rosenda Marie [facility] 1.840.114 350.1.13.10 4.2.7.2.686 [id number] [facility] 2022-08-09 00:00:00 2022-08-09 00:00:00 Orders Only Doctor Unassigned, [place] [facility] 1.84.114 350.1.13.10 4.2.7.2.686 [id number] [id number] [facility] 2022-07-11 00:00:00 2022-07-11 00:00:00 Refill María Elena Cowan [facility] 1.840.114 350.1.13.10 4.2.7.2.686 [id number] [facility] 2022-07-08 00:00:00 2022-07-08 00:00:00 Refill Sheyla Trevizo [facility] 1.840.114 350.1.13.10 4.2.7.2.686 [id number] [facility] 2022-05-17 13:00:00 2022-05-17 13:31:32 Outpatient R SHEYLA TREVIZO [facility] [id number] [facility] 2022-05-17 13:00:00 2022-05-17 13:31:32 Office Visit Sheyla Trevizo [facility] 1..840.114 350.1.13.10 4.2.7.2.686 [id number] [facility] 2022-02-04 00:00:00 2022-02-04 00:00:00 [facility] 1.840.114 350.1.13.10 4.2.7.2.686 [id number] [facility] 2021-12-27 19:30:00 2021-12-27 19:30:00 Outpatient R ROSENDA MARIE STRAHIL [facility] [id number] [facility] 2021-12-17 19:30:00 2021-12-17 22:00:00 Lining Folder Visit 1, [facility] Sleep Lab Bed Rosenda Marie [facility] 1.840.114 350.1.13.10 4.2.7.2.686 [id number] [facility] 2021-12-17 19:30:00 2021-12-17 19:30:00 Outpatient R ROSENDA MARIE STRAHIL [facility] [id number] [facility] 2021-12-17 00:00:00 2021-12-17 00:00:00 Orders Only Doctor Unassigned, [place] [facility] 1.840.114 350.1.13.10 4.2.7.2.686 [id number] [id number] [facility] 2021-11-23 19:30:00 2021-11-23 19:30:00 Outpatient R ROSENDA MARIE STRAHIL [facility] [id number] [facility] 2021-11-21 13:00:00 2021-11-21 13:15:00 Laboratory Only Only, Adc Test Aaron Newsome [facility] 1.2.840.114 350.1.13.10 4.2.7.2.686 [id number] [facility] 2021-11-21 13:00:00 2021-11-21 13:00:00 Outpatient R AARON NEWSOME [facility] [id number] [facility] 2021-11-15 00:00:00 2021-11-15 00:00:00 Refill Sheyla Trevizo [facility] 1.2.840.114 350.1.13.10 4.2.7.2.686 [id number] [facility] 2021-10-10 13:40:00 2021-10-10 14:32:26 Outpatient R ROSENDA MARIE STRALAMONTL [facility] [id number] [facility] 2021-10-10 13:40:00 2021-10-10 14:32:26 Office Visit Rosenda Marie [facility] 1.2.840.114 350.1.13.10 4.2.7.2.686 [id number] [facility] 2021-10-10 13:40:00 2021-10-10 14:32:26 Outpatient R HARPAL, RANDL HARPAL, STRAVAL [facility] [id number] [facility] 2021-09-27 00:00:00 2021-09-27 00:00:00 Telephone Yan Rizwana Sus[facility] 1.2.840.114 350.1.13.10 4.2.7.2.686 [id number] [facility] 2021-09-26 15:45:00 2021-09-26 15:45:00 Outpatient R DARCY RIVERO [facility] [id number] [facility] 2021-09-26 14:15:00 2021-09-26 14:15:00 Outpatient R RIZWANA KOEHLER [facility] [id number] [facility] 2021-09-15 11:56:55 2021-09-15 23:59:00 Hospital Encounter Fede [facility] 1.2.840.114 350.1.13.10 4.2.7.2.686 [id number] [facility] 2021-09-15 11:56:54 2021-09-15 23:59:00 Hospital Encounter Fede Jeremy [facility] 1.2.840.114 350.1.13.10 4.2.7.2.686 [id number] [facility] 2021-09-15 11:40:00 2021-09-15 12:18:30 Outpatient R JEREMY RIVAS [facility] [id number] [facility] 2021-09-15 11:22:48 2021-09-15 12:18:30 Urgent Care Fede Jeremy [facility] 1.2.840.114 350.1.13.10 4.2.7.2.686 [id number] [facility] 2021-08-19 00:00:00 2021-08-19 00:00:00 Telephone Sheyla Trevizo [facility] Medical Office Building 1.2840.114 350.1.13.10 4.2.7.2.686 [id number] [facility] 2021-08-19 00:00:00 2021-08-19 00:00:00 Telephone Sheyla Trevizo [facility] Building 1.2840.114 350.1.13.10 4.2.7.2.686 [id number] [id number] [facility] 2021-08-16 15:44:51 2021-08-16 16:38:51 Office Visit Sheyla Trevizo [facility] Building 1.20.114 350.1.13.10 4.2.7.2.686 [id number] [facility] 2021-08-16 13:00:00 2021-08-16 13:00:00 Outpatient R SHEYLA TREVIZO [facility] [id number] [facility] 2021-08-10 00:00:00 2021-08-10 00:00:00 Telephone María Elena Cowan [facility] 1..114 350.1.13.10 4.2.7.2.686 [id number] [facility] 2021-08-09 14:46:57 2021-08-09 15:01:57 Lining Folder Visit 2, Adc Lab María Elena Cowan [facility] Building 1.0.114 350.1.13.10 4.2.7.2.686 [id number] [facility] 2021-08-09 14:04:55 2021-08-09 14:44:30 Office Visit María Elena Cowan [facility] Building 1.20.114 350.1.13.10 4.2.7.2.686 [id number] [facility] 2021-08-09 14:00:00 2021-08-09 14:00:00 Outpatient R MARÍA ELENA COWAN [facility] [id number] [facility] 2021-08-09 00:00:00 2021-08-09 00:00:00 Orders Only Doctor Unassigned, [place] [facility] 1.84.114 350.1.13.10 4.2.7.2.686 [id number] [facility] 2021-01-14 08:50:00 2021-01-14 08:50:00 Outpatient [facility] [id number] [facility] 2020-12-17 09:00:00 2020-12-17 09:00:00 Outpatient R PAMELA PETERSON [facility] [id number] [facility] 2020-08-14 00:00:00 2020-08-14 00:00:00 Telephone María Elena CowanHSheri [facility] 1.840.114 350.1.13.10 4.2.7.2.686 [id number] [id number] [facility] 2020-08-08 14:42:32 2020-08-08 15:42:32 Laboratory Only Pc, Adc Echo Room - [facility] 1.840.114 350.1.13.10 4.2.7.2.686 [id number] [facility] 2020-08-08 15:00:00 2020-08-08 15:00:00 Outpatient R [facility] [id number] [facility] 2020-08-08 00:00:00 2020-08-08 00:00:00 Telephone María Elena CowanHSheri [facility] Building 1.840.114 350.1.13.10 4.2.7.2.686 [id number] [facility] 2020-08-04 14:40:52 2020-08-04 14:55:52 Lining Folder Visit 2, Adc Lab María Elena Cowan [facility] Building 1.2.840.114 350.1.13.10 4.2.7.2.686 [id number] [facility] 2020-08-04 13:48:36 2020-08-04 14:38:41 Office Visit María Elena Cowan [facility] 1.2.840.114 350.1.13.10 4.2.7.2.686 [id number] [facility] 2020-08-04 14:00:00 2020-08-04 14:00:00 Outpatient R CAMRYN [facility] [id number] [facility] 2020-07-07 14:00:00 2020-07-07 14:00:00 Outpatient R COWAN [facility] [id number] [facility] 2020-03-17 00:00:00 2020-03-17 00:00:00 Telephone Rizwana Koehler [facility] [place] 1.2.840.114 350.1.13.10 4.2.7.2.686 [id number] [facility] 2020-03-01 13:40:59 2020-03-01 13:55:59 Office Visit Elmo Duarte [facility] [place] 1.2.840.114 350.1.13.10 4.2.7.2.686 [id number] [facility] 2020-03-01 13:45:00 2020-03-01 13:45:00 Outpatient R ELMO DUARTE [facility] [id number] [facility] 2020-02-28 00:00:00 2020-02-28 00:00:00 Telephone Rizwana Koehler [facility] [place] 1.2.840.114 350.1.13.10 4.2.7.2.686 [id number] [facility] 2020-01-26 16:00:00 2020-01-26 16:00:00 Outpatient R RIZWANA KOEHLER [facility] [id number] [facility] 2020-01-26 14:49:01 2020-01-26 15:22:53 Office Visit Rizwana Koehler [facility] [place] 1.2.840.114 350.1.13.10 4.2.7.2.686 [id number] [facility] 2019-07-07 13:43:43 2019-07-07 13:58:43 Lining Folder Visit 2, Adc Lab María Elena Cowan [facility] 1.2.840.114 350.1.13.10 4.2.7.2.686 [id number] [facility] 2019-07-07 13:04:25 2019-07-07 13:38:53 Office Visit María Elena Cowan [facility] 1.2.840.114 350.1.13.10 4.2.7.2.686 [id number] [facility] 2019-07-07 00:00:00 2019-07-07 00:00:00 Orders Only Doctor Unassigned, [place] [facility] 1.2.840.114 350.1.13.10 4.2.7.2.686 [id number] [facility] Results Test Description Test Time Test Comments Results Result Co mments Source [facility] [id number] 14:56:18* Test Item Value Reference Range Interpretation Comme nts PH (test code = 8362812627) 7.44 7.32-7.42 H PCO2 AVELINA (test code = 4193120788) 42 41-51 PO2 AVELINA (test code = 1942196096) 31 25-40 AC VBE(BEAKER) (test code = 8489090592) 4.0 -3.0-3.0 HCO3 AVELINA (test code = 4904345545) 28 24-28 %O2HB (test code = 7562563172) 61.0 % 94.0-99.0 L NA (test code = 9414483130) 138 mmol/L 135-145 K+ (test code = 7207727041) 4.7 mmol/L 3.5-5.0 AC CA IONZ (test code = 9566697902) 4.50 mg/dL 4.50-5.30 GLUCOSE (test code = 7448155462) 95 mg/dL 70-110 AC Hematocrit (test code = 5685115908) 31 40-54 L THB (test code = 7071525987) 10.5 g/dL 13.5-18.0 L AC TCO2 AVELINA (test code = 7378354350) 30 mmol/L See_Comment H [Automated messa ge] The system which generated this result transmitted reference range: 24-29 mmol/L. The reference range was not used to interpret this result as normal/abnormal. Lab Interpretation (test code = 59970-0) [facility] [id number] 14:23:20* Test Item Value Reference Range Interpretation Comme nts K (test code = 2448739532) 4.5 mmol/L 3.5-5.0 Lab Interpretation (test cod e = 67222-6) Normal [facility] [id number] 14:23:20* Test Item Value Reference Range Interpretation Comme nts K (test code = 5540940234) 4.5 mmol/L 3.5-5.0 Lab Interpretation (test cod e = 17972-8) [facility] This is a pre-surgical type and screen. ONCE [id number] 14:01:00* Test Item Value Reference Range Interpretation Comme nts ABO & RH (test code = 20) O POSITIVE IAT (test code = 1185) Negative [facility] - This is a pre-surgical type and screen. ONCE [id number] 14:01:00* Test Item Value Reference Range Interpretation Comme nts ABO & RH (test code = 20) O POSITIVE IAT (test code = 1185) Negative [facility] [id number] 16:14:00Ordered by an unspecified provider.[facility] (TTE)2024-09-14 17:22:50* Test Item Value Reference Range Interpretation Comme nts Height (test code = 3204245232) 66 in Weight (test code = 8326104934) 251 lbs Systolic BP (test code = 3361390035) 148 mmHg Diastolic BP (test code = 5697408399) 65 mmHg Heart Rate (test code = 1685930663) 85 bpm RVOT diameter (test code = 4240104415) 2.6 cm RVOT Proximal Diameter (test code = 6001709342) 3.60 cm Ao root diam (test code = 2646674299) 3.70 cm Aortic root (test code = 6335876931) 3.7 cm Ao root annulus (test code = 9898663322) 3.7 cm BSA (test code = 3331768674) 2.20 m2 LVOT diameter (test code = 6236904207) 2.43 cm LVOT area (test code = 9960909351) 4.70 cm2 LA size (test code = 6401715247) 3.8 cm ACS (test code = 2432488390) 2.90 cm LVIDD (test code = 8722869302) 4.50 cm Left Ventricular End Diastolic Volume by Teichholz Method (test code = 4603037) 92.1 mL IVS (test code = 0297702238) 1.73 cm Interventricular Septum Diastolic Thickness by 2D (test code = 0840458) 1.73 cm LVPWD (test code = 2551410613) 1.48 cm PW (test code = 3963582229) 1.48 cm 0.6-1.1 EF(Teich) (test code = 0984023307) 59.10 % LVIDS (test code = 8547581675) 3.10 cm Left Ventricular End Systolic Volume by Teichholz Method (test code = 0739074) 37.7 mL FS (test code = 9750519056) 31 % EF - 2D (test code = 65421011) 59.10 % PV PEAK VELOCITY (test code = 3182269110) 104.8 cm/s PV peak gradient (test code = 4350637082) 4.4 mmHg MV E-F slope (test code = 9049801981) 78.40 cm/s MV Peak E Anastacia (test code = 9314870294) 66.6 cm/s MV Peak A Anastacia (test code = 4105358532) 93.8 cm/s E/A ratio (test code = 9675873060) 0.71 ratio MV valve area p 1/2 method (test code = 3273811425) 2.60 cm2 MV dec slope (test code = 3224287454) 227.80 cm/s2 MV P1/2t max anastacia (test code = 2928001443) 66.60 cm/s LVOT stroke volume (test code = 2778201221) 122.60 cm3 LVOT peak anastacia (test code = 2962236228) 115.3 cm/s LVOT mn grad (test code = 9075253458) 2.1 mmHg AV LVOT peak gradient (test code = 0178185640) 5.3 mmHg LVOT peak VTI (test code = 7484249155) 26.4 cm LV V1 mean (test code = 1589510009) 64.50 cm/s Aortic valve mean velocity (test code = 9260971787) 104.0 cm/s Ao peak anastacia (test code = 2790651157) 184.5 cm/s Ao VTI (test code = 4987575787) 37.4 cm AV area by cont VTI (test code = 2233048400) 3.3 cm2 AV area peak anastacia (test code = 2598719299) 2.9 cm2 Ao max PG (test code = 3514999908) 13.60 mm[Hg] AV peak gradient (test code = 6396042264) 13.6 mmHg AV valve area (test code = 2573816074) 3.30 cm2 AV mean gradient (test code = 0979695052) 5.3 mmHg TR Peak Anastacia (test code = 2803565638) 239.0 cm/s Triscuspid Valve Regurgitation Peak Gradient (test code = 1760413754) 25.4 mmHg LAV(MOD-sp4) (test code = 0558706007) 43.10 mL LA Volume Index (BP) (test code = 9554818947) 21.8 mL/m2 LA volume (BP) (test code = 5960357293) 48.1 mL LAV(MOD-sp2) (test code = 4624093353) 50.80 mL AV regurgitation pressure 1/2 time (test code = 7646562025) 306.6 ms AI dec slope (test code = 4441088095) 176.30 cm/s2 AI max anastacia (test code = 7198975177) 184.50 cm/s AI max PG (test code = 9449117418) 13.60 mm[Hg] A4C EF (test code = 8680792690) 57.30 % EF(sp4-el) (test code = 4147355279) 56.70 % SV(MOD-sp4) (test code = 7775845390) 79.60 mL SV(sp4-el) (test code = 9885467689) 82.80 mL RVOT area (test code = 1228789414) 5.31 cm2 Radiology Study observation (narrative) (test code = 50353-1) BROOKE (test code = BROOKE) ?Left?Ventricle: Left ventricle size is normal. Moderately increased wall thickness. Normal wall motion. Normal systolic function with a visually estimated EF of 60 - 65%. There is impaired relaxation. ?Right?Ventricle: Right ventricle is mildly dilated. Normal systolic function. ?Tricuspid?Valve: Insufficient tricuspid regurgitation jet to estimate RVSP . ?RA pressure is 0-5 mmHg. ?Aorta: Mildly enlarged ascending aorta (3.9 cm) and aortic arch (4.0 cm). Left VentricleLeft ventricle size is normal. Moderately increased wall thickness. Normal wall motion. Normal systolic function with a visually estimated EF of 60 - 65%. There is impaired relaxation.Right VentricleRight ventricle is mildly dilated. Normal systolic function.Left AtriumLeft atrium size is normal.Right AtriumRight atrium size is normal.IVC/SVCIVC diameter is less than or equal to 21 mm and decreases greater than 50% during inspiration; therefore the estimated right atrial pressure is normal (~0-5 mmHg).Mitral ValveMitral valve structure is normal. Mild mitral annular calcification. Trace transvalvular regurgitation.Tricusp id ValveTricuspid valve structure is grossly normal. Trace transvalvular regurgitation. Insufficient tricuspid regurgitation jet to estimate RVSP . RA pressure is 0-5 mmHg.Aortic ValveTricuspid. Mildly thickened cusps. Mildly calcified cusps. Trace transvalvular regurgitation.Pulmoni c ValveNot well visualized. Trace transvalvular regurgitation.Ascendi ng AortaMildly enlarged ascending aorta (3.9 cm) and aortic arch (4.0 cm).PericardiumTrivia l pericardial effusion present.Study DetailsStudy quality was adequate. A complete echocardiogram was performed using 2D, color flow Doppler and spectral Doppler. 5 mL of Lumason ultrasound enhancing agent used. [facility] GLUCOSE (AUTOMATED)2024-08-18 21:53:36* Test Item Value Reference Range Interpretation Comme nts POCT GLU (test code = 1287905860) 143 mg/dL 70-110 H Lab Interpretation (test cod e = 80132-4) Abnormal [facility] GLUCOSE (AUTOMATED)2024-08-18 16:52:04* Test Item Value Reference Range Interpretation Comme nts POCT GLU (test code = 8084499648) 114 mg/dL 70-110 H Lab Interpretation (test cod e = 00663-7) Abnormal [facility] GLUCOSE (AUTOMATED)2024-08-18 12:44:33* Test Item Value Reference Range Interpretation Comme nts POCT GLU (test code = 7344122418) 124 mg/dL 70-110 H Lab Interpretation (test cod e = 30168-3) Abnormal [facility] GLUCOSE (AUTOMATED)2024-08-18 01:19:06* Test Item Value Reference Range Interpretation Comme nts POCT GLU (test code = 0791953830) 151 mg/dL 70-110 H Lab Interpretation (test cod e = 67587-4) Abnormal [facility] GLUCOSE (AUTOMATED)2024-08-17 21:32:31* Test Item Value Reference Range Interpretation Comme nts POCT GLU (test code = 5879076429) 125 mg/dL 70-110 H Lab Interpretation (test cod e = 04585-8) Abnormal [facility] GLUCOSE (AUTOMATED)2024-08-17 16:44:30* Test Item Value Reference Range Interpretation Comme nts POCT GLU (test code = 0748971967) 136 mg/dL 70-110 H Lab Interpretation (test cod e = 44519-3) Abnormal [facility] GLUCOSE (AUTOMATED)2024-08-17 12:35:57* Test Item Value Reference Range Interpretation Comme nts POCT GLU (test code = 6942659189) 131 mg/dL 70-110 H Lab Interpretation (test cod e = 21386-4) [facility]2024-[facility]17 01:32:56* Test Item Value Reference Range Interpretation Comme nts POCT GLU (test code = 2158657403) 199 mg/dL 70-110 H Lab Interpretation (test cod e = 87695-3) Abnormal [facility] GLUCOSE (AUTOMATED)2024-08-16 21:36:27* Test Item Value Reference Range Interpretation Comme nts POCT GLU (test code = 5742055072) 129 mg/dL 70-110 H Lab Interpretation (test cod e = 91148-0) Abnormal [facility] GLUCOSE (AUTOMATED)2024-08-16 16:39:29* Test Item Value Reference Range Interpretation Comme nts POCT GLU (test code = 2448004008) 185 mg/dL 70-110 H Lab Interpretation (test cod e = 11416-4) Abnormal [facility] GLUCOSE (AUTOMATED)2024-08-16 12:48:58* Test Item Value Reference Range Interpretation Comme nts POCT GLU (test code = 1756522984) 141 mg/dL 70-110 H Lab Interpretation (test cod e = 17359-8) [facility]2024-08-16 01:08:26* Test Item Value Reference Range Interpretation Comme nts POCT GLU (test code = 7546148146) 170 mg/dL 70-110 H Lab Interpretation (test cod e = 57242-6) Abnormal [facility]2024-08-15 21:37:53* Test Item Value Reference Range Interpretation Comme nts POCT GLU (test code = 4742886410) 145 mg/dL 70-110 H Lab Interpretation (test cod e = 16889-7) Abnormal [facility] GLUCOSE (AUTOMATED)2024-08-15 16:42:49* Test Item Value Reference Range Interpretation Comme nts POCT GLU (test code = 5486977130) 182 mg/dL 70-110 H Lab Interpretation (test cod e = 69473-0) [facility] 12:30:22* Test Item Value Reference Range Interpretation Comme nts POCT GLU (test code = 6547707422) 134 mg/dL 70-110 H Lab Interpretation (test cod e = 00108-2) [facility]24-08[facility]14 21:45:20* Test Item Value Reference Range Interpretation Comme nts POCT GLU (test code = 6178462103) 144 mg/dL 70-110 H Lab Interpretation (test cod e = 30211-7) [facility] ULTRASOUND 2024-08-12 20:21:07EXAMINATION: IMAGE GUIDED PERCUTANEOUS [place] KIDNEY BIOPSY. HISTORY/INDICATION: outpatient kidney biopsy request TECHNIQUE: The risks, benefits and alternatives were discussed and informedconsent was obtained. Prior to beginning the procedure, [place] Protocolwas performed to confirm the patient's identity and the planned procedure.Maximum sterile barriers including cap, mask, hand hygiene, sterile gloves,sterile gown, large sterile drape and cutaneous antisepsis were used. The left [place] kidney was localized using ultrasound guidance. A saferoute, free of overlying structures was identified. The area over this sitewas anesthetized with 1 percent lidocaine. An 18 gauge biopsy device wasadvanced into the kidney substance usingreal-time ultrasound guidance and a series of 2 specimens were obtained.These tissue cores were transferred to the appropriate containers forsurgical pathology. At the end of the procedure, the biopsy device was removed and pressureheld until hemostasis was achieved. ESTIMATED BLOOD LOSS: Minimal. CONDITION: Stable. DISCHARGE TO: Patient care division. FINDINGS: Initial ultrasound images demonstrate no obvious mass or hydronephrosis. Final ultrasound images demonstrate no significant perinephric hematoma.[facility] 2024-08-10 18:03:34Study: Single view chest. Ordering Physician: HAWA MINER Date: 08/10/2024 11:45 AM History:Tunneled line placement COMPARISON: 08/06/2024 Findings: Single frontal view chest demonstrates a normal heart size. Thelungs are clear without infiltrate, pleural effusion or pneumothorax. Theright subclavian catheter terminates over the distal superior vena cava. Noacute osseous abnormality is identified.[facility] 1 [id number] 18:03:34Study: Single view chest. Ordering Physician: HAWA MINER Date: 08/10/2024 11:45 AM History:Tunneled line placement COMPARISON: 08/06/2024 Findings: Single frontal view chest demonstrates a normal heart size. Thelungs are clear without infiltrate, pleural effusion or pneumothorax. Theright subclavian catheter terminates over the distal superior vena cava. Noacute osseous abnormality is identified.[facility] TIME OR (NON-REPORTABLE)2024-08-10 17:44:55These images do not require a Radiology diagnostic report.[facility] TIME OR (NON-REPORTABLE)2024-08-10 17:44:55These images do not require a Radiology diagnostic report.[facility] ABD[facility] PEL[facility] WO [id number] 06:01:18EXAM: CT ABDOMEN PELVIS WO CONTRAST HISTORY: 69 years old Male with Flank pain, kidney stone suspected acute right flank pain with hematuria and ANNA COMPARISON: None. TECHNIQUE AND FINDINGS: Contiguous axial imaging from the level of the lungbases through the pubic symphysis was performed after administration ofintravenous contrast. Coronal and sagittal reconstructions were obtained. Auto mA and/or iterative reconstruction were used to reduce radiation dose. FINDINGS: LOWER THORAX: Left basilarbronchial wall thickening with the patchynodular airspace opacities and tree-in-bud pattern representing aspirationchanges versus bronchopneumonia. Trace of left pleural effusion. LIVER: No focal hepatic lesions. ?Normal contour. Scattered subcentimetercalcified granulomas. GALLBLADDER AND BILIARY TREE: No biliary ductal dilation. ?No gallbladderwall thickening. SPLEEN: No splenomegaly. Scatteredsubcentimeter calcified granulomas. PANCREAS: No ductal dilation or masses. ADRENAL GLANDS: No adrenal nodules. KIDNEYS: Bilaterally atrophic kidneys. No hydronephrosis, stones, ormasses. PERITONEUM AND RETROPERITONEUM: No free air or fluid. LYMPH NODES: No lymphadenopathy. GI TRACT: No dilation or wall thickening. Appendix is normal. Scatteredtransverse descending and sigmoid colon diverticula without adjacent fatstranding to suggest acute diverticulitis. PELVIS/BLADDER: The urinary bladder isdecompressed. VESSELS: Atherosclerotic calcification of the abdominal aorta and itsbranches. BONES AND SOFT TISSUES: Small bilateral fat containing inguinal hernias.Small fat-containing umbilical hernia. Multilevel degenerative changes ofthe distal thoracic and lumbar spine in the form of endplate osteophytosis,facet arthrosis and vacuum disc phenomenon. No acute fracture ordislocation is noted. No suspicious osseous lesions are present.[facility]BD[facility] PELVIS WO [id number] 06:01:18EXAM: CT ABDOMEN PELVIS WO CONTRAST HISTORY: 69 years old Male with Flank pain, kidney stone suspected acute right flank pain with hematuria and ANNA COMPARISON: None. TECHNIQUE AND FINDINGS: Contiguous axial imaging from the level of the lungbases through the pubic symphysis was performed after administration ofintravenous contrast. Coronal and sagittal reconstructions were obtained. Auto mA and/or iterative reconstruction were used to reduce radiation dose. FINDINGS: LOWER THORAX: Left basilarbronchial wall thickening with the patchynodular airspace opacities and tree-in-bud pattern representing aspirationchanges versus bronchopneumonia. Trace of left pleural effusion. LIVER: No focal hepatic lesions. ?Normal contour. Scattered subcentimetercalcified granulomas. GALLBLADDER AND BILIARY TREE: No biliary ductal dilation. ?No gallbladderwall thickening. SPLEEN: No splenomegaly. Scatteredsubcentimeter calcified granulomas. PANCREAS: No ductal dilation or masses. ADRENAL GLANDS: No adrenal nodules. KIDNEYS: Bilaterally atrophic kidneys. No hydronephrosis, stones, ormasses. PERITONEUM AND RETROPERITONEUM: No free air or fluid. LYMPH NODES: No lymphadenopathy. GI TRACT: No dilation or wall thickening. Appendix is normal. Scatteredtransverse descending and sigmoid colon diverticula without adjacent fatstranding to suggest acute diverticulitis. PELVIS/BLADDER: The urinary bladder isdecompressed. VESSELS: Atherosclerotic calcification of the abdominal aorta and itsbranches. BONES AND SOFT TISSUES: Small bilateral fat containing inguinal hernias.Small fat-containing umbilical hernia. Multilevel degenerative changes ofthe distal thoracic and lumbar spine in the form of endplate osteophytosis,facet arthrosis and vacuum disc phenomenon. No acute fracture ordislocation is noted. No suspicious osseous lesions are present.[facility] HeightsPhosphorus [id number] 21:30:58* Test Item Value Reference Range Interpretation Comme nts PHOSPHORUS (test code = 4411047848) 7.8 mg/dL 2.5-5.0 H Lab Interpretation (test cod e = 15683-6) Abnormal [facility] HeightsPhosphorus [id number] 21:30:58* Test Item Value Reference Range Interpretation Comme nts PHOSPHORUS (test code = 8362709144) 7.8 mg/dL 2.5-5.0 H Lab Interpretation (test cod e = 85595-0) Abnormal [facility] THORAX WO [id number] 19:16:42 Indication: Pleural effusion, malignancy suspected Abnormal CT A/P with fluid / mass ? in lung space; Cr >9 ? Comparison: None RL: [id number] ORDERING PHYSICIAN: ?SOPHIE PATTEN TECHNIQUE: Multidetector row helical CT of the chest was performed withoutadministration of intravenous contrast. Coronal andsagittal reformationswere obtained. Automated dose lowering techniques and/or adjustmentaccording to patient size were utilized for this exam. FINDINGS: LUNG NODULES: None. Lungs there are patchy airspace opacities in the left lower lobe. PLEURA: Small left pleural effusion. MEDIASTINUM/HILUM/AXILLA: No adenopathy. HEART: Heart size normal. No pericardial effusion. CORONARY ARTERY CALCIFICATION: Moderate calcified plaque throughout thecoronary arteries. Calcified small spleenUnMerrick Medical Center THORAX WO CONTRAST 2024-08-08 19:16:42Indication: Pleural effusion, malignancy suspected Abnormal CT A/P with fluid / mass ? in lung space; Cr >9 ? Comparison: None RL: 4209 ORDERING PHYSICIAN: ?SOPHIE PATTEN TECHNIQUE: Multidetector row helical CT of the chest was performed withoutadministration of intravenous contrast. Coronal andsagittal reformationswere obtained. Automated dose lowering techniques and/or adjustmentaccording to patient size were utilized for this exam. FINDINGS: LUNG NODULES: None. Lungs there are patchy airspace opacities in the left lower lobe. PLEURA: Small left pleural effusion. MEDIASTINUM/HILUM/AXILLA: No adenopathy. HEART: Heart size normal. No pericardial effusion. CORONARY ARTERY CALCIFICATION: Moderate calcified plaque throughout thecoronary arteries. Calcified small spleenUnCozard Community Hospital Urinalysis W Specific [id number] 19:13:00* Test Item Value Reference Range Interpretation Comme nts POCT U SP GRAV (test code = 3255) 1.015 mg/dl 1.005-1.025 POCT PH U (test code = 3254) 5 mg/dl 5-8 POCT U LEUK EST (test code = 3263) trace Negative - Negative POCT U NIT (test code = 3262) positive Negative - Negati ve POCT U PROT (test code = 3259) 500 Negative - Negative POCT U GLU (test code = 3256) 100 Negative - Negati ve POCT U KETONE (test code = 3258) small Negative - Negative POCT U UROBILI (test code = 3260) normal 0.2-1 POCT U BILI (test code = 3261) negative Negative - Negative POCT U BLD (test code = 3257) 250 Negative - Negati ve POCT U COLOR (test code = 3266) red POCT U APPEAR (test code = 3267) hazy Lab Interpretation (test cod e = 77067-3) Abnormal [facility] SARS-COV-2 ANTIGEN (BINAX NOW)2024-08-06 19:13:00* Test Item Value Reference Range Interpretation Comme nts POCT SARS-COV-2 ANTIGEN (test code = 30048-6) Not Detected Not Detected, See Comment On board controls acceptable with C Line (test code = 3574) Yes [facility] Molecular [id number] 18:47:42* Test Item Value Reference Range Interpretation Comme nts POCT Molecular FluA (test co de = 55525-9) Negative Negative POCT Molecular FluB (test co de = 12174-2) Negative Negative Lab Interpretation (test cod e = 85247-6) Normal [facility] with [id number] 21:05:09* Test Item Value Reference Range Interpretation Comme nts WBC (test code = 6690-2) 11.87 4.20-10.70 H RBC (test code = 789-8) 3.89 4.26-5.52 L HGB (test code = 718-7) 11.4 g/dL 12.2-16.4 L HCT (test code = 4544-3) 36.4 % 38.4-49.3 L MCV (test code = 787-2) 93.6 fL 81.7-95.6 MCH (test code = 785-6) 29.3 pg 26.1-32.7 MCHC (test code = 786-4) 31.3 g/dL 31.2-35.0 RDW-SD (test code = 89685-9) 48.7 fL 38.5-51.6 RDW-CV (test code = 788-0) 14.4 % 12.1-15.4 PLT (test code = 777-3) 322 150-328 MPV (test code = 24791-1) 9.9 fL 9.8-13.0 NRBC/100 WBC (test code = 7223403258) 0.0 0.0-10.0 NRBC x10^3 (test code = 0683010010) See_Comment [Automated messa ge] The system which generated this result transmitted reference range: 10*3/?L. The reference range was not used to interpret this result as normal/abnormal. GRAN MAT (NEUT) % (test code = 770-8) 77.7 % IMM GRAN % (test code = 4575794958) 0.40 % LYMPH % (test code = 736-9) 11.6 % MONO % (test code = 5905-5) 6.7 % EOS % (test code = 713-8) 3.0 % BASO % (test code = 706-2) 0.6 % GRAN MAT x10^3(ANC) (test code = 8102275373) 9.22 10*3/uL 1.99-6.95 H IMM GRAN x10^3 (test code = 0923975096) 0.05 10*3/uL 0.00-0.06 LYMPH x10^3 (test code = 731-0) 1.38 10*3/uL 1.09-3.23 MONO x10^3 (test code = 742-7) 0.79 10*3/uL 0.36-1.02 EOS x10^3 (test code = 711-2) 0.36 10*3/uL 0.06-0.53 BASO x10^3 (test code = 704-7) 0.07 10*3/uL 0.01-0.09 Lab Interpretation (test code = 65803-4) Abnormal [facility]PHYSICIAN [id number] 19:52:58Ordered by an unspecified provider.[facility] ORDERS 2024-06-08 17:22:11Ordered by an unspecified provider.[facility] HeightsREFERRAL- REQUEST/[id number] 15:59:09Ordered by an unspecified provider.[facility] HeightsUS RETROPERITONEAL [id number] 19:00:58ULTRASOUND EXAMINATION OF THE KIDNEYS CLINICAL INDICATIONS: Acute renal failure, unspecified acute renal failuretype Chronic kidney disease (CKD) stage G3b/A1, Renal hypertension Chronic diastolic heart failure Venous insufficiency worsening renal function ,acute chronic kidney disease frequent urination,obstructive ?uropathy ,hydro other External order COMPARISON: None TECHNIQUE:An abdominal ultrasound was performed. Images were acquired for permanentstorage in the patient's medical record. Asappropriate, high-resolutiongrayscale imaging, pulse Doppler measurement, and color Doppler imagingwere performed. AORTA: Within normal limits RIGHT KIDNEY: 11.1 x 5.0 x 6.4 cmUniform echogenic renalparenchyma but without cystic or solid defect.Renal cortex: 0.8 cm. No evidence of hydronephrosis. Color Dopplerdemonstrates intact blood flow. LEFT KIDNEY: ?12.3 x 4.6 x 5.5 cmUniform echogenic renal parenchyma without cystic or solid defect. Renalcortex: 1.0 cm. No evidence of hydronephrosis. Color Doppler demonstratesintact blood flow. URINARY BLADDER:The urinary bladder is unremarkable.[facility] (NA, K, CL, CO2, GLUCOSE, BUN, CREATININE, CA)2024-03-10 01:00:33* Test Item Value Reference Range Interpretation Comme nts NA (test code = 0808305435) 140 mmol/L 135-145 K (test code = 1046844366) 4.2 mmol/L 3.5-5.0 CL (test code = 3860461447) 107 mmol/L 98-108 CO2 TOTAL (test code = 5192899011) 23 mmol/L 23-31 AGAP (test code = 9064165110) 10 2-16 BUN (test code = 7099331374) 68 mg/dL 7-23 H GLUCOSE (test code = 1453185353) 127 mg/dL 70-110 H CREATININE (test code = 2160-0) 3.63 mg/dL 0.60-1.25 H CALCIUM (test code = 9156757502) 8.5 mg/dL 8.6-10.6 L eGFR (test code = 82243-2) 17.2 mL/min/1.73m2 CKD-EPI eGFR (2020). Assuming creatinine has been stable day-to-day for at least three months, the eGFR indicates Category G4 (15 - 29 mL/min/1.73 m2) Lab Interpretation (test code = 21972-4) Abnormal [facility] with [id number] 00:55:29* Test Item Value Reference Range Interpretation Comme nts WBC (test code = 6690-2) 12.08 4.20-10.70 H RBC (test code = 789-8) 3.46 4.26-5.52 L HGB (test code = 718-7) 10.5 g/dL 12.2-16.4 L HCT (test code = 4544-3) 32.5 % 38.4-49.3 L MCV (test code = 787-2) 93.9 fL 81.7-95.6 MCH (test code = 785-6) 30.3 pg 26.1-32.7 MCHC (test code = 786-4) 32.3 g/dL 31.2-35.0 RDW-SD (test code = 73332-7) 47.4 fL 38.5-51.6 RDW-CV (test code = 788-0) 13.9 % 12.1-15.4 PLT (test code = 777-3) 257 150-328 MPV (test code = 73347-5) 10.1 fL 9.8-13.0 NRBC/100 WBC (test code = 8586843274) 0.0 0.0-10.0 NRBC x10^3 (test code = 4302162758) See_Comment [Automated messa ge] The system which generated this result transmitted reference range: 10*3/?L. The reference range was not used to interpret this result as normal/abnormal. GRAN MAT (NEUT) % (test code = 770-8) 77.2 % IMM GRAN % (test code = 3378749785) 0.70 % LYMPH % (test code = 736-9) 11.5 % MONO % (test code = 5905-5) 6.3 % EOS % (test code = 713-8) 3.8 % BASO % (test code = 706-2) 0.5 % GRAN MAT x10^3(ANC) (test code = 2359476313) 9.33 10*3/uL 1.99-6.95 H IMM GRAN x10^3 (test code = 4716949243) 0.08 10*3/uL 0.00-0.06 H LYMPH x10^3 (test code = 731-0) 1.39 10*3/uL 1.09-3.23 MONO x10^3 (test code = 742-7) 0.76 10*3/uL 0.36-1.02 EOS x10^3 (test code = 711-2) 0.46 10*3/uL 0.06-0.53 BASO x10^3 (test code = 704-7) 0.06 10*3/uL 0.01-0.09 Lab Interpretation (test code = 28949-8) Abnormal [facility] Heights[facility]anst[facility] (TTE)2023-08-09 01:49:17* Test Item Value Reference Range Interpretation Comme nts Height (test code = 8846194310) 66 in Weight (test code = 1442952501) 296 lbs Systolic BP (test code = 0842030365) 123 mmHg Diastolic BP (test code = 0787575959) 82 mmHg Heart Rate (test code = 3129051846) 70 bpm BSA (test code = 0833842554) 2.36 m2 Ao root diam (test code = 6563113915) 3.50 cm Aortic root (test code = 2321827577) 3.5 cm Ao root annulus (test code = 9101573971) 3.5 cm LA size (test code = 6458854415) 4.2 cm LVOT diameter (test code = 1699597208) 2.6 cm LVOT area (test code = 6167956804) 5.30 cm2 MV Prop V (test code = 8724244631) 79.50 cm/s MV Peak E Anastacia (test code = 7340673248) 58.1 cm/s MV Peak A Anastacia (test code = 0054801851) 58.1 cm/s E/A ratio (test code = 9317167653) 1.00 ratio E wave decelartion time (test code = 6483516546) 0.23 s LAV(MOD-sp4) (test code = 3397594135) 84.80 mL Aortic valve mean velocity (test code = 3601708901) 80.2 cm/s Ao peak anastacia (test code = 2121836309) 107.7 cm/s Ao VTI (test code = 7173092079) 19.2 cm Ao max PG (test code = 4652429952) 4.60 mm[Hg] AV peak gradient (test code = 5331942236) 4.6 mmHg AV mean gradient (test code = 2344304080) 2.8 mmHg LVOT stroke volume (test code = 5261294300) 118.40 cm3 LVOT peak anastacia (test code = 3448357935) 107.3 cm/s LVOT mn grad (test code = 8788600683) 2.5 mmHg AV LVOT peak gradient (test code = 7995985424) 4.6 mmHg LVOT peak VTI (test code = 8308039370) 22.4 cm AV area by cont VTI (test code = 2489338067) 6.2 cm2 AV area peak anastacia (test code = 7575290739) 5.3 cm2 LV V1 mean (test code = 3684595637) 75.60 cm/s AV valve area (test code = 2928981140) 6.20 cm2 Tapse (test code = 3151973755) 1.81 cm LA Volume Index (BP) (test code = 4361282036) 30.7 mL/m2 LA volume (BP) (test code = 5012473542) 72.4 mL LAV(MOD-sp2) (test code = 6277423723) 42.40 mL LVIDD (test code = 8806441004) 4.60 cm Left Ventricular End Diastolic Volume by Teichholz Method (test code = 5762925) 98.3 mL IVS (test code = 1111858139) 0.94 cm Interventricular Septum Diastolic Thickness by 2D (test code = 1696776) 0.94 cm LVPWD (test code = 9889532308) 0.87 cm PW (test code = 2235409994) 0.87 cm 0.6-1.1 EF(Teich) (test code = 0074533360) 71.60 % LVIDS (test code = 0573346435) 2.70 cm Left Ventricular End Systolic Volume by Teichholz Method (test code = 5885221) 27.9 mL FS (test code = 5396338035) 41 % EF - 2D (test code = 20348771) 71.60 % Radiology Study observation (narrative) (test code = 88421-0) BROOKE (test code = BROOKE) ?Left?Ventricle: Left ventricle size is normal. Mildly increased wall thickness. Normal wall motion. Normal systolic function with a visually estimated EF of 55 - 60%. Diastolic dysfunction. Normal left ventricular filling pressure. ?Right?Ventricle: Right ventricle is mildly dilated. Normal systolic function. TAPSE is 1.81 cm. ?Tricuspid?Valve: Trace transvalvular regurgitation. Insufficient tricuspid regurgitation jet to estimate RVSP IVC not well seen. ?Aorta: Normal sized aortic root. Left VentricleLeft ventricle size is normal. Mildly increased wall thickness. Normal wall motion. Normal systolic function with a visually estimated EF of 55 - 60%. Diastolic dysfunction. Normal left ventricular filling pressure.Right VentricleRight ventricle is mildly dilated. Normal systolic function. TAPSE is 1.81 cm.Left AtriumLeft atrium size is normal.Right AtriumNot well visualized. Right atrium size is normal.IVC/SVCIVC not well seen.Mitral ValveMitral valve structure is normal. Mild mitral annular calcification. Trace transvalvular regurgitation.Tricusp id ValveTricuspid valve structure is grossly normal. Trace transvalvular regurgitation. Insufficient tricuspid regurgitation jet to estimate RVSP IVC not well seen.Aortic ValveTricuspid. Mildly calcified cusps.Pulmonic ValveNot well visualized. Trace transvalvular regurgitation.Ascendi ng AortaNormal sized aortic root.PericardiumNo pericardial effusion.Study DetailsStudy quality experienced technical difficulty. The apical, parasternal and subcostal views were obtained. 5 mL of Lumason ultrasound enhancing agent used. [facility] HeightsN-TERMINAL MAX-[id number] 09:47:43* Test Item Value Reference Range Interpretation Comme nts NT-proBNP (test code = 1767011141) 239 pg/mL <=125 H BROOKE (test code = BROOKE) Biotin has been reported to cause a negative bias, interpret results relative to patient's use of biotin. Lab Interpretation (test code = 61966-7) Abnormal [facility] METABOLIC PANEL (NA, K, CL, CO2, GLUCOSE, BUN, CREATININE, CA)2023-04-10 09:44:40* Test Item Value Reference Range Interpretation Comme nts NA (test code = 6628789204) 138 mmol/L 135-145 K (test code = 0281120698) 4.0 mmol/L 3.5-5.0 CL (test code = 3201884182) 101 mmol/L 98-108 CO2 TOTAL (test code = 4529061030) 28 mmol/L 23-31 AGAP (test code = 1873142145) 9 2-16 BUN (test code = 0083401130) 50 mg/dL 7-23 H GLUCOSE (test code = 7767890387) 115 mg/dL 70-110 H CREATININE (test code = 4995253184) 2.06 mg/dL 0.60-1.25 H CALCIUM (test code = 4178902988) 8.9 mg/dL 8.6-10.6 eGFR (test code = 9806097689) 32.2 mL/min/1.73m2 BROOKE (test code = BROOKE) Association of Glomerular Filtration Rate (GFR) and Staging of Kidney Disease* + --+ --+ ------+| GFR (mL/min/1.73 m2) ?| With Kidney Damage ?| ?Without Kidney Damage+ --------+ --------+ +| ?>90 ?| ?Stage one ?| ? Normal ?+ ---+ ---+ -------+| ?60-89 ?| ?Stage two ?| ? Decreased GFR ? + --+ --+ ------+| ?30-59 ?| ?Stage three ?| ? Stage three ? + --+ --+ ------+| ?15-29 ?| ?Stage four ? | ? Stage four ?+ ---+ ---+ -------+| ?<15 (or dialysis) ? ?| ?Stage five ? | ? Stage five ?+ ---+ ---+ -------+ *Each stage assumes the associated GFR level has been in effect for at least three months. ?Stages 1 to 5, with or without kidney disease, indicate chronic kidney disease. Notes: Determination of stages one and two (with eGFR >59mL/min/1.73 m2) requires estimation of kidney damage for at least three months as defined by structural or functional abnormalities of the kidney, manifested by either:Pathological abnormalities or Markers of kidney damage (including abnormalities in the composition of the blood or urine or abnormalities in imaging tests). Lab Interpretation (test code = 74840-6) [facility]normal [facility]2023-06-01 09:44:40* Test Item Value Reference Range Interpretation Comme nts MAGNESIUM (test code = 0323611080) 1.8 mg/dL 1.7-2.4 Lab Interpretation (test cod e = 49295-6) Normal [facility] WITH [id number] 08:57:59* Test Item Value Reference Range Interpretation Comme nts WBC (test code = 6690-2) 9.02 See_Comment [Automated [employer]] The system which generated this result transmitted reference range: 4.20 - 10.70 10*3/?L. The reference range was not used to interpret this result as normal/abnormal. RBC (test code = 789-8) 4.57 See_Comment [Automated [employer]] The system which generated this result transmitted reference range: 4.26 - 5.52 10*6/?L. The reference range was not used to interpret this result as normal/abnormal. HGB (test code = 718-7) 13.4 g/dL 12.2-16.4 HCT (test code = 4544-3) 39.8 % 38.4-49.3 MCV (test code = 787-2) 87.1 fL 81.7-95.6 MCH (test code = 785-6) 29.3 pg 26.1-32.7 MCHC (test code = 786-4) 33.7 g/dL 31.2-35.0 RDW-SD (test code = 44532-6) 42.7 fL 38.5-51.6 RDW-CV (test code = 788-0) 13.4 % 12.1-15.4 PLT (test code = 777-3) 308 See_Comment [Automated messa ge] The system which generated this result transmitted reference range: 150 - 328 10*3/?L. The reference range was not used to interpret this result as normal/abnormal. MPV (test code = 95087-7) 9.6 fL 9.8-13.0 L NRBC/100 WBC (test code = 4678562855) 0.0 See_Comment [Automated me ssage] The system which generated this result transmitted reference range: 0.0 - 10.0 /100 WBCs. The reference range was not used to interpret this result as normal/abnormal. NRBC x10^3 (test code = 2183958202) See_Comment [Automated messa ge] The system which generated this result transmitted reference range: 10*3/?L. The reference range was not used to interpret this result as normal/abnormal. GRAN MAT (NEUT) % (test code = 770-8) 73.4 % IMM GRAN % (test code = 7512881703) 0.20 % LYMPH % (test code = 736-9) 14.2 % MONO % (test code = 5905-5) 8.1 % EOS % (test code = 713-8) 3.4 % BASO % (test code = 706-2) 0.7 % GRAN MAT x10^3(ANC) (test code = 2908632295) 6.62 10*3/uL 1.99-6.95 IMM GRAN x10^3 (test code = 7243155203) 0.00-0.06 LYMPH x10^3 (test code = 731-0) 1.28 10*3/uL 1.09-3.23 MONO x10^3 (test code = 742-7) 0.73 10*3/uL 0.36-1.02 EOS x10^3 (test code = 711-2) 0.31 10*3/uL 0.06-0.53 BASO x10^3 (test code = 704-7) 0.06 10*3/uL 0.01-0.09 Lab Interpretation (test code = 99339-3) [facility] HeightsSILV[facility] [id number] 17:57:18* Test Item Value Reference Range Interpretation Comme nts TROPONIN I (test code = 5556119559) <=0.034 BROOKE (test code = BROOKE) Reference (Normal) Range (defined by the 99th percentile reference limit): <= 0.034 ng/mL Note: Cardiac troponin begins to rise 3-4 hours after the onset of ischemia. Repeat in 4-6 hours if the sample was drawn within 3-4 hours of the onset of the symptom and found normal. Diagnosis of myocardial injury is made with acute changes in cTn concentrations with at least one serial sample above the 99th percentile upper reference limit (URL), taken together with the patient's clinical presentation. Biotin has been reported to cause a negative bias, interpret results relative to patient's use of biotin. Lab Interpretation (test code = 89440-1) Normal [facility] METABOLIC PANEL (NA, K, CL, CO2, GLUCOSE, BUN, CREATININE, CA)2023-04-09 17:46:15* Test Item Value Reference Range Interpretation Comme nts NA (test code = 6408596624) 139 mmol/L 135-145 K (test code = 0031463170) 3.8 mmol/L 3.5-5.0 CL (test code = 0965458354) 101 mmol/L 98-108 CO2 TOTAL (test code = 5343814004) 27 mmol/L 23-31 AGAP (test code = 3631360562) 11 2-16 BUN (test code = 0343985644) 46 mg/dL 7-23 H GLUCOSE (test code = 2756167186) 115 mg/dL 70-110 H CREATININE (test code = [id number]) 1.99 mg/dL 0.60-1.25 H CALCIUM (test code = 4589208963) 9.4 mg/dL 8.6-10.6 eGFR (test code = 5050618041) 33.5 mL/min/1.73m2 BROOKE (test code = BROOKE) Association of Glomerular Filtration Rate (GFR) and Staging of Kidney Disease* + --+ --+ ------+| GFR (mL/min/1.73 m2) ?| With Kidney Damage ?| ?Without Kidney Damage+ --------+ --------+ +| ?>90 ?| ?Stage one ?| ? Normal ?+ ---+ ---+ -------+| ?60-89 ?| ?Stage two ?| ? Decreased GFR ? + --+ --+ ------+| ?30-59 ?| ?Stage three ?| ? Stage three ? + --+ --+ ------+| ?15-29 ?| ?Stage four ? | ? Stage four ?+ ---+ ---+ -------+| ?<15 (or dialysis) ? ?| ?Stage five ? | ? Stage five ?+ ---+ ---+ -------+ *Each stage assumes the associated GFR level has been in effect for at least three months. ?Stages 1 to 5, with or without kidney disease, indicate chronic kidney disease. Notes: Determination of stages one and two (with eGFR >59mL/min/1.73 m2) requires estimation of kidney damage for at least three months as defined by structural or functional abnormalities of the kidney, manifested by either:Pathological abnormalities or Markers of kidney damage (including abnormalities in the composition of the blood or urine or abnormalities in imaging tests). Lab Interpretation (test code = 23741-5) [facility]* Test Item Value Reference Range Interpretation Comme nts MAGNESIUM (test code = 0414922216) 1.9 mg/dL 1.7-2.4 Lab Interpretation (test cod e = 05103-1) Normal [facility], 2 YRUPR1855-26-04 18:47:00 *.*.*.*.*.*.*.*.*.*.*.*.*.*FINAL*.*.*.*.*.*.*.*.*.*.*.*.*.*.*HISTORY: Total right knee replacement.FINDINGS: ?AP and crosstable oblique views of knee were obtained with portabletechnique at 1.25 p.m. Postoperative changes of total knee replacement noted.Residual degenerative changes are seen alongthe articular edges of the medialand lateral femoral condyles and lateral tibial condyle. The hardware is in goodposition. I do not see any acute intraoperative fracture. Soft tissue swellingalong with air in the soft tissue from surgical dissection noted. Skin staplesand drainage catheter are in place. CONCLUSION: ?Postoperative changes of total right knee replacement. ?Personally interpreted by: ARELI ALMENDAREZ MD /Signed/ ARELI ALMENDAREZ MDUnCHRIST[facility] Consult Notes Date/Time Note Provider Source 2024-08-17 14:18:01 Associated Order(s): CONSULT SENIOR REACTOR OPERATOR-ADULT Spoke with the [facility] Infusion and lab who indicates that they are able to provide IV Cytoxan as ordered. Their infusion center is located in the [facility] [address] (lab) and are opened Tuesdays, and Fridays, which can be scheduled around pt's HD chair time of M/W/F at 1330. Dr. Catalan has been notified of information and will be submitting orders. SW will assist with any additional dc needs. SALAZAR Kauffman Slab Puller - Care Management [facility] [phone] [email or web address] 2024-08-11 12:22:07 Associated Order(s): CONSULT SENIOR REACTOR OPERATOR-ADULT Referral has been submitted to [facility] for review for new HD. Will await chair time. [facility] HD: [phone] SALAZAR Kauffman Slab Puller - Care Management [facility] [phone] [email or web address] 2024-08-09 13:01:41 Associated Order(s): CONSULT GENERAL SURGERY GENERAL SURGERY CONSULT NOTE Date of Service: 08/09/2024 Requesting Service: Nephrology Requesting Physician: Hossein CHIEF COMPLAINT: ESRD, need for dialysis access HISTORY OF PRESENT ILLNESS Ramirez Andre is a 69 year old male with PMH HFpEF (55-60% in 2022), CKD, HTN, sleep apnea, depression, h/o CVA who presents with hematuria. General surgery was consulted for tunneled dialysis catheter placement. The patient presented yesterday to the ED for hematuria and right flank pain and was found to have acute on chronic kidney failure. He was started on antibiotics on Friday by his PCP for a presumed UTI. He developed weakness over the weekend and was told to go to the ED. Complains also of subjective fever and chills. Denies dysuria, difficulty with urination, chest pain, dyspnea, abdominal pain, nausea, vomiting, diarrhea. Denies blood thinner use. Was previously on aspirin for his heart but stopped several weeks ago. Denies history of surgeries or line placements in the neck. MEDICATIONS Current Facility-Administered Medications Medication Dose Route Frequency Last Rate Last Admin calcium acetate(phosphat bind) (PHOSLO) capsule 667 mg 667 mg Oral TID MEALS 667 mg at 08/09/24 1203 cefTRIAXone (ROCEPHIN) 1,000 mg in NaCl 0.9% (NS) 100 mL MINI-BAG 1,000 mg IV Piggyback Q24H ABX Stopped at 08/09/24 1104 fluconazole (DIFLUCAN) Piggyback 200 mg 200 mg IV Piggyback Q24H ABX 100 mL/hr at 08/09/24 1204 200 mg at 08/09/24 1204 heparin (porcine) injection 5,000 Units 5,000 Units Subcutaneous Q12H sodium bicarbonate 150 mEq in D5W 1,000 mL IV infusion 150 mEq IV Infusion CONTINUOUS 75 mL/hr at 08/09/24 1031 150 mEq at 08/09/24 1031 acetaminophen (TYLENOL) tablet 650 mg 650 mg Oral Q6HPRN benzonatate (TESSALON PERLES) capsule 100 mg 100 mg Oral Q8HPRN escitalopram oxalate (LEXAPRO) tablet 10 mg 10 mg Oral DAILY 10 mg at 08/09/24 0837 ALLERGIES No Known Allergies HISTORIES Past Medical History: Diagnosis Date CHF (congestive heart failure) Chronic pain of both knees CKD (chronic kidney disease) Depression Exposure to asbestos Hypertension Obesity Sleep apnea with use of continuous positive airway pressure (CPAP) Stroke 2006 R sided weakness Past Surgical History: Procedure Laterality Date TOTAL KNEE ARTHROPLASTY Right 05/26/2017 Surgeon: Rizwana Koehler MD; Location: [facility] [place] Family History Problem Relation Age of Onset No Significant Medical Problems Mother No Significant Medical Problems Father Social History Socioeconomic History Marital status: Spouse name: Not on file Number of children: Not on file Years of education: Not on file Highest education level: Not on file Occupational History Not on file Tobacco Use Smoking status: Never Smokeless tobacco: Never Substance and Sexual Activity Alcohol use: No Drug use: No Sexual activity: Not on file Other Topics Concern Not on file Social History Narrative Not on file Social Determinants of Health Financial Resource Strain: High Risk (07/09/2024) Overall Financial Resource Strain (CARDIA) Difficulty of Paying Living Expenses: Hard Food Insecurity: Food Insecurity Present (07/09/2024) Hunger Vital Sign Worried About Running Out of Food in the Last Year: Sometimes true Ran Out of Food in the Last Year: Sometimes true Transportation Needs: No Transportation Needs (07/09/2024) PRAPARE - Transportation Lack of Transportation (Medical): No Lack of Transportation (Non-Medical): No Physical Activity: Insufficiently Active (07/09/2024) Exercise Vital Sign Days of Exercise per Week: 1 day Minutes of Exercise per Session: 20 min Stress: Not on file Social Connections: Unknown (04/09/2023) Social Connection and Isolation Panel [NHANES] Frequency of Communication with Friends and Family: More than three times a week Frequency of Social Gatherings with Friends and Family: Not on file Attends Judaism Services: Not on file Active Member of Clubs or Organizations: Not on file Attends Club or Organization Meetings: Not on file Marital Status: Intimate Partner Violence: Not on file Housing Stability: Low Risk (07/09/2024) Housing Stability Vital Sign Unable to Pay for Housing in the Last Year: No Number of Places Lived in the Last Year: 1 Unstable Housing in the Last Year: No REVIEW OF SYSTEMS Constitutional: +Fatigue, + fever, + chills, no weight loss HEENT: no headache, no vision changes Cardiovascular: no chest pain, no palpitations Respiratory: no cough, no shortness of breath Gastrointestinal: no abdominal pain, no nausea, no vomiting, no diarrhea, no constipation, no hematochezia Genitourinary: +Hematuria, no dysuria Neuro: no numbness, no tingling Musculoskeletal: no joint pain Skin: no rash Endo: no heat or cold intolerance Heme: no easy bruising PHYSICAL EXAM Vitals: Vitals: 08/09/24 0350 08/09/24 0400 08/09/24 0726 08/09/24 1144 BP: (!) 150/73 (!) 143/77 Pulse: 72 70 65 Resp: 18 18 Temp: 36.9 ?C (98.5 ?F) 36.9 ?C (98.4 ?F) TempSrc: SpO2: 93% 93% 94% Weight: 124.5 kg (274 lb 6.4 oz) Height: Exam: General: awake, alert, appears stated age, NAD HEENT: normocephalic, atraumatic Lungs: unlabored on RA Cardio: regular rate Abdomen: soft, nondistended, nontender Extremities: full ROM, no gross movement abnormalities Skin: no rashes Neuro: sensory and motor grossly intact LABORATORY CBC Recent Labs 08/06/24 14108/08/24 1206 08/09/24 0353 WBC 10.94* 13.33* 11.22* HGB 10.6* 10.8* 9.4* HCT 33.0* 33.3* 28.7* PLT 267 238 202 Chemistry Recent Labs 08/06/24 1415 08/08/24 1206 08/08/24 1542 08/09/24 0353 NA 138 134* -- 134* K 4.1 3.7 -- 3.4* CL 105 105 -- 104 TCO2 15* 12* -- 14* BUN 75* 83* -- 88* CREAT 7.29* 9.51* -- 9.50* GLU 116* 120* -- 119* PHOS -- -- 7.8* 7.6* MG -- -- -- 1.4* CA 8.2* 8.2* -- 7.6* LFTs Recent Labs 08/06/24 1415 08/08/24 1206 AST 13 15 ALT 10 11 ALKPHOS 72 70 BILIT 0.6 0.7 Urinalysis Recent Labs 08/06/24 1418 08/08/24 1206 UPROTEIN 500 mg/dL* 500 mg/dL* UGLUCOSE 150 mg/dL* 150 mg/dL* UKETONES Negative Negative UBILI Negative Negative ULEUKEST Negative Negative UNITRITE Negative Negative USPGRAV 1.015 1.018 Coagulation Profile No results for input(s): "PTPAT", "PTINR", "APTTMNNM", "APTTPAT" in the last 72 hours. Arterial Blood Gas No results for input(s): "ACPH", "ACPCO2", "ACPO2", "ACHCO3", "ACNA", "ACK", "ACCAIONZ", "ACBE" in the last [address] ABDOMEN PELVIS WO CONTRAST Result Date: 08/09/2024 No acute intra-abdominal process. No nephrolithiasis or hydronephrosis. Bilaterally atrophic kidneys suggestive of medical renal disease. Colonic diverticulosis. Left basilar aspiration changes versus bronchopneumonia with trace of pleural effusion. Preliminary Report Dictated by Resident: Navid Talamantes MD., have reviewed this study and agree with the above report. XR CHEST 2 VW Result Date: 08/08/2024 1. Patchy opacities in the left lower lobe concerning for pneumonia. THORAX WO CONTRAST Result Date: 08/08/2024 1. Patchy airspace opacities in the left lower lobe concerning for pneumonia. 2. Small left pleural effusion. SSMENT Ramirez Andre is a 69 year old male with PMH HFpEF (55-60% in 2022), CKD, HTN, sleep apnea, depression, h/o CVA who presents with hematuria, found to have acute on chronic kidney disease and metabolic acidosis. General surgery was consulted for tunneled dialysis catheter placement. PLAN - Will plan for OR tomorrow for tunneled hemodialysis catheter placement with Dr. Miner - Keep NPO past midnight - The risks and benefits of the procedure were discussed in detail with the patient. Alternatives to operative intervention were also discussed. Pertinent surgical risks reviewed included: bleeding, infection, damage to surrounding structures, and need for additional procedures. Patient voiced understanding of these risks and agreed to proceed with the operation. Informed consent is signed and in the chart. Discussed with Dr. Miner, general surgery attending. Gina Rios MD [facility] General Surgery 08/09/2024 13:01 Associated attestation - Keely Miner MD - 08/09/2024 4:27 PM CDT I personally examined the patient on 08/09/[address] Den's resident note as written . I actively participated in the decision-making process. Please see the resident's note for additional details. Tunneled line in AM Keely Miner MD SURGERY [facility] 2024-08-09 12:21:53 Associated Order(s): CONSULT NEPHROLOGY Consultation requested by: IM/Hospitalist, Dr. Cross Reason for Consultation: Acute on chronic renal failure Date of Service: 08/09/24 History of Present Illness: Ramirez Andre is a 69 year old male with hx of obesity, chronic HTN, chronic peripheral edema, hx of venous insufficiency, chronic Rt venous stasis ulcer now healed, long standing CKD with some worsening of renal function earlier in the year leading to referral to my office for evaluation. Initially his diuretics and BP meds were scaled back due to concern for over treatment with some mild improvement in GFR but there was concern for active urinary sediment although with some yeast in urine we held off on kidney biopsy and serologic w/u given some overall improvement in condition although it was discussed. Pt last seen in late Jun, Cr level in late May was as low as ~ 2.66 mg/dl. He has had gross hematuria, some Rt flank pain in recent days and OP labs done with PCP late last week showed renal failure but this was not brought to my attention until admission here yesterday evening. He feels fair when seen and denies any abd pain or N/V. No urinary retention and is non anuric. PAST MEDICAL HISTORY Past Medical History: Diagnosis Date CHF (congestive heart failure) Chronic pain of both knees CKD (chronic kidney disease) Depression Exposure to asbestos Hypertension Obesity Sleep apnea with use of continuous positive airway pressure (CPAP) Stroke 2006 R sided weakness Past Surgical History: Procedure Laterality Date TOTAL KNEE ARTHROPLASTY Right 05/26/2017 Surgeon: Rizwana Koehler MD; Location: [facility] [place] Family History Problem Relation Age of Onset No Significant Medical Problems Mother No Significant Medical Problems Father No reports of renal disorders Allergies: Patient has no known allergies. MEDICATIONS Hospital Medications: Current Facility-Administered Medications Medication Dose Route Frequency Last Rate Last Admin calcium acetate(phosphat bind) (PHOSLO) capsule 667 mg 667 mg Oral TID MEALS 667 mg at 08/09/24 1203 cefTRIAXone (ROCEPHIN) 1,000 mg in NaCl 0.9% (NS) 100 mL MINI-BAG 1,000 mg IV Piggyback Q24H ABX Stopped at 08/09/24 1104 fluconazole (DIFLUCAN) Piggyback 200 mg 200 mg IV Piggyback Q24H ABX 100 mL/hr at 08/09/24 1204 200 mg at 08/09/24 1204 heparin (porcine) injection 5,000 Units 5,000 Units Subcutaneous Q12H sodium bicarbonate 150 mEq in D5W 1,000 mL IV infusion 150 mEq IV Infusion CONTINUOUS 75 mL/hr at 08/09/24 1031 150 mEq at 08/09/24 1031 acetaminophen (TYLENOL) tablet 650 mg 650 mg Oral Q6HPRN benzonatate (TESSALON PERLES) capsule 100 mg 100 mg Oral Q8HPRN escitalopram oxalate (LEXAPRO) tablet 10 mg 10 mg Oral DAILY 10 mg at 08/09/24 0837 SOCIAL HISTORY Social History Tobacco Use Smoking Status Never Smokeless Tobacco Never Social History Substance and Sexual Activity Alcohol Use No Social History Substance and Sexual Activity Drug Use No REVIEW OF SYSTEMS ROS: Constitutional: No fevers or chills reported Vision: No double vision or blurry vision reported ENT: No sinusitis or dysphagia reported Resp: No cough or dyspnea reported CVS: No CP or palpitations reported GI: No N/V/D : As mentioned above Heme: Worsened anemia Endo: No DM or thyroid issues reported Neuro: No hx of CVA or seizures Psych: No reports of depression or anxiety Derm: As mentioned above Allergic: No reports of anaphylaxis or urticaria PHYSICAL EXAMINATION BP (!) 143/77 | Pulse 65 | Temp 36.9 ?C (98.4 ?F) | Resp 18 | Ht 1.727 m (5' 8") | Wt 124.5 kg (274 lb 6.4 oz) | SpO2 94% | BMI 41.72 kg/m? PE: Gen: NAD, non tachypnec HEENT: Atraumatic, sclera anicteric Neck: Supple Resp: b/l air entry, no rhonchi appreciated CVS: RRR, no loud murmur or gallop heart sounds appreciated GI: Soft, obese, NT : escamilla not present Ext: Improved LE edema, shins non tender Derm: Xerosis, no active ulcers noted Neuro: Awake, alert, responsive, non encephalopathic, non focal LABORATORY Reviewed in the EMR CHART REVIEW: Reviewed ASSESSMENT and PLAN Ramirez Andre is a 69 year old male with PMH as listed above, consulted for above mentioned. Subacute Stage III renal failure on underlying CKD Stage IIIb historically with with eGFR < 45 ml/min stretching back to '17 on labs in [facility]. When initially seen in clinic it was unclear initially if worsened labs earlier this year reflected progressive CKD and true loss of GFR or if there was superimposed pre-renal state through the chronic use of diuretics combined with max dose ARB and occasional use of NSAIDs. Suspect a combination of both initially However there was also some concern regarding some active sediment in urine with proteinuria and microscopic hematuria and now with gross hematuria, sig worsened renal function will need to eval for primary glomerulopathy/GN process. Complement studies within normal limit, RF elevated. Neg hepatitis studies. MARYSOL and ACNA also sent off. Ddx includes IgA nephropathy. Fractional excretion of urea is > 35% arguing against pre-renal etiology despite recent re-escalation of diuretics, nonetheless will cont IVF. Acute on chronic metab acidosis with AG -cont bicarb gtt for now until HD initiated. Given severe renal failure and the need for kidney biopsy later in the week (once off ASA for 5 days, pt does not recall last dose of ASA and unclear if he was off as he suggests as he was prev taking it daily) will proceed with HD first to lower risk for bleeding.Unknown if reversible etiology will be found, so will proceed with TDC placement in case longer term HD is required. Consulted general surgery. Will consult IR for biopsy Fri. Will monitor BP range closely Anemia 2nd to renal disease, other -trend counts closely, will employ SIMIN therapy if Hb remains < 9 Pyuria, other abnormal findings in urine including budding yeast. Will place on Fluconazole. Will check yeast urine culture Discussed plan of care with primary team and pt's family Julio Catalan MD, FASN T [facility] - Health History and Physical Notes Date/Time Note Provider Source 2024-12-09 08:21:52 I personally examined the patient on 12/09/2024 and agree with Geni Quinteros MD resident note as written . No interval change since being seen in clinic. Last dialyzed yesterday. To OR today for right upper extremity fistula creation Yogi French MD, RPVI, FSVS Vascular Surgery PGY18 [employer] Source Note - Geni Quinteros MD - 11/25/2024 3:45 PM CO [employer] VASCULAR SURGERY - CLINIC NOTE Date of Service: 11/25/2024 CC: Dialysis access evaluation HISTORY OF PRESENT ILLNESS Ramirez Andre is a 69 year old male patient with PMH of ESRD on HD MWF, IgA nephropathy, CVA with R sided deficits, CHF, HTN, and JESUSITA who presents to clinic for permanent dialysis access evaluation. He has been on dialysis for the last few months via a R IJ permcath. He has no issues with dialysis through the catheter. He is right hand dominant but had a stroke that resulted in right arm weakness, so he relies on his left arm for activities of daily living. He has not had any other dialysis accesses and denies surgical interventions on his right arm. He still makes urine daily. Is not on blood thinners. PAST MEDICAL HISTORY Past Medical History: Diagnosis Date CHF (congestive heart failure) Chronic pain of both knees CKD (chronic kidney disease) Depression Exposure to asbestos Hypertension Obesity Sleep apnea with use of continuous positive airway pressure (CPAP) Stroke 2006 R sided weakness PAST SURGICAL HISTORY Past Surgical History: Procedure Laterality Date PERMACATH PLACEMENT N/A 08/10/2024 Surgeon: Keely Miner MD; [facility] TOTAL KNEE ARTHROPLASTY Right 05/26/2017 Surgeon: Rizwana Koehler MD; Location: [facility] MEDICATIONS Current Outpatient Medications Medication Instructions Cholecalciferol, Vitamin D3, (VITAMIN D3) 50 mcg (2,000 unit) tablet Oral docusate (COLACE) 100 mg, Oral, DAILY escitalopram oxalate (LEXAPRO) 10 mg, Oral, DAILY furosemide (LASIX) 40 mg, Oral hydrALAZINE (APRESOLINE) 25 mg, Oral HYDROcodone-acetaminophen 10-325 mg tablet 1 tablet, Oral, Q6HPRN methocarbamoL (ROBAXIN) 750 mg, Oral, QIDPRN pantoprazole (PROTONIX) 40 mg, Oral, DAILY predniSONE (DELTASONE) 20 mg, Oral sevelamer (RENAGEL) 800 mg, Oral SOCIAL HISTORY Social History Socioeconomic History Marital status: Tobacco Use Smoking status: Never Smokeless tobacco: Never Substance and Sexual Activity Alcohol use: No Drug use: No Social Determinants of Health Financial Resource Strain: Low Risk (09/07/2024) Overall Financial Resource Strain (CARDIA) Difficulty of Paying Living Expenses: Not very hard Recent Concern: Financial Resource Strain - High Risk (07/09/2024) Overall Financial Resource Strain (CARDIA) Difficulty of Paying Living Expenses: Hard Food Insecurity: No Food Insecurity (09/07/2024) NCSS - Food Insecurity Worried About Running Out of Food in the Last Year: No Ran Out of Food in the Last Year: No Recent Concern: Food Insecurity - Food Insecurity Present (07/09/2024) Hunger Vital Sign Worried About Running Out of Food in the Last Year: Sometimes true Ran Out of Food in the Last Year: Sometimes true Transportation Needs: No Transportation Needs (09/07/2024) NCSS - Transportation Lack of Transportation: No Physical Activity: Inactive (09/07/2024) Exercise Vital Sign Days of Exercise per Week: 0 days Minutes of Exercise per Session: 20 min Social Connections: Moderately Isolated (09/07/2024) Social Connection and Isolation Panel [NHANES] Frequency of Communication with Friends and Family: More than three times a week Frequency of Social Gatherings with Friends and Family: Twice a week Attends Judaism Services: Never Active Member of Clubs or Organizations: No Attends Club or Organization Meetings: Never Marital Status: Housing Stability: At Risk (09/07/2024) NCSS - Housing/Utilities Has Housing: Yes Worried About Losing Housing: No Unable to Get Utilities: Yes FAMILY HISTORY Family History Problem Relation Age of Onset No Significant Medical Problems Mother No Significant Medical Problems Father ALLERGIES No Known Allergies PHYSICAL EXAM BP 139/75 (BP Location: Right arm, Patient Position: Sitting, BP CUFF SIZE: Adult Large) | Pulse 94 | Resp 22 | Ht 1.676 m (5' 6") | Wt 112.9 kg (249 lb) | SpO2 96% | BMI 40.19 kg/m? No acute distress RUE with intact motor function and sensation but weakness in hand Duplex in clinic showed adequate forearm and upper arm cephalic vein, radial artery intact ASSESSMENT/PLAN Ramirez Andre is a 69 year old male patient with PMH as above who presents to clinic for permanent dialysis access creation. Currently undergoes HD via R IJ [facility] MWF. Will benefit from fistula creation. Discussed with patient who agrees with surgical plan. - OR 12/09/2024 for right upper extremity arteriovenous fistula creation at [facility] with Dr. French - Consent to be obtained - Avoid PIV's or blood draws from the right arm - Call with any questions or concerns Geni Quinteros MD PGY2, Vascular Surgery 11/25/2024 [employer] [facility]TH[facility]-VASCULAR SURGERY STAFF [facility] 2024-08-08 20:32:34 [facility] Hospitalist Admission H&P Date of Service: 08/08/2024 CHIEF COMPLAINT: Hematuria HISTORY OF PRESENT ILLNESS Ramirez Andre is a 69 year old male who presents with hematuria. Patient states his symptoms started on Friday and he has had persistent gross hematuria since that time. He states that he has had some dysuria as well. His urine has not cleared up so he came into the ER today. In the emergency room labs revealed acute on chronic kidney failure. Patient denies any current ibuprofen use. Patient states he had a CT of the abdomen and pelvis that showed bilateral atrophy of the kidneys.. Patient's GFR was in the mid 20s for most of the early part of the year. Currently patient's GFR is less than 10. Patient will be hydrated and we will start patient on a bicarb drip. Patient most likely may need to get started on hemodialysis. Nephrology consulted, and await further recommendations. Patient also has a venous stasis ulcer on the right leg. Patient has venous insufficiency with significant lower extremity edema. Echocardiogram from a year ago was within normal limits. Urine analysis with protein urea and pyuria with some bacteria. Patient also with significant elevation of RBCs. Urine creatinine was 120. PAST MEDICAL HISTORY Past Medical History: Diagnosis Date CHF (congestive heart failure) Chronic pain of both knees CKD (chronic kidney disease) Depression Exposure to asbestos Hypertension Obesity Sleep apnea with use of continuous positive airway pressure (CPAP) Stroke 2006 R sided weakness PAST SURGICAL HISTORY Past Surgical History: Procedure Laterality Date TOTAL KNEE ARTHROPLASTY Right 05/26/2017 Surgeon: Rizwana Koehler MD; Location: [facility] [place] ALLERGIES No Known Allergies MEDICATIONS Current home medication list reviewed: Current Discharge Medication List STOP taking these medications benzonatate (TESSALON PERLES) 100 mg capsule Comments: Reason for Stopping: cephALEXin 500 mg capsule Comments: Reason for Stopping: escitalopram oxalate 10 mg tablet Comments: Reason for Stopping: triamcinolone acetonide 0.1 % ointment Comments: Reason for Stopping: HYDROcodone-acetaminophen 7.5-325 mg per tablet Comments: Reason for Stopping: LIDOCAINE VISCOUS 2 % solution Comments: Reason for Stopping: SANTYL 250 unit/gram ointment Comments: Reason for Stopping: mupirocin 2 % ointment Comments: Reason for Stopping: docusate 100 mg capsule Comments: Reason for Stopping: GARLIC EXTRACT ORAL Comments: Reason for Stopping: aspirin 81 mg chewable tablet Comments: Reason for Stopping: HYDROcodone-acetaminophen 10-325 mg tablet Comments: Reason for Stopping: FAMILY HISTORY Family History Problem Relation Age of Onset No Significant Medical Problems Mother No Significant Medical Problems Father SOCIAL HISTORY Social History Socioeconomic History Marital status: Tobacco Use Smoking status: Never Smokeless tobacco: Never Substance and Sexual Activity Alcohol use: No Drug use: No Social Determinants of Health Financial Resource Strain: High Risk (07/09/2024) Overall Financial Resource Strain (CARDIA) Difficulty of Paying Living Expenses: Hard Food Insecurity: Food Insecurity Present (07/09/2024) Hunger Vital Sign Worried About Running Out of Food in the Last Year: Sometimes true Ran Out of Food in the Last Year: Sometimes true Transportation Needs: No Transportation Needs (07/09/2024) PRAPARE - Transportation Lack of Transportation (Medical): No Lack of Transportation (Non-Medical): No Physical Activity: Insufficiently Active (07/09/2024) Exercise Vital Sign Days of Exercise per Week: 1 day Minutes of Exercise per Session: 20 min Social Connections: Unknown (04/09/2023) Social Connection and Isolation Panel [NHANES] Frequency of Communication with Friends and Family: More than three times a week Marital Status: Housing Stability: Low Risk (07/09/2024) Housing Stability Vital Sign Unable to Pay for Housing in the Last Year: No Number of Places Lived in the Last Year: 1 Unstable Housing in the Last Year: No REVIEW OF SYSTEMS 10 systems negative except per HPI PHYSICAL EXAMINATION BP (!) 146/83 | Pulse 67 | Temp 36.8 ?C (98.3 ?F) | Resp 18 | Ht 1.727 m (5' 8") | Wt 122.5 kg (270 lb) | SpO2 96% | BMI 41.05 kg/m? General: No acute distress HEENT: Normal oral mucosa, anicteric sclerae, NCAT Cardiovascular: RRR Lungs: Symmetric expansion, clear bilaterally Abdomen: Soft, NTND Musculoskeletal: No synovitis, normal muscle mass Genitourinary: Deferred Skin: No rash, no skin lesions Extremities: No clubbing, no cyanosis, no lower extremity edema Neuro: AAOx3, no focal deficits Psych: Normal affect LABS - reviewed pertinent labs as below: CBC BMP PT/INR WBC (10*3/?L) Date Value 08/08/2024 13.33 (H) NA (mmol/L) Date Value 08/08/2024 134 (L) No results found for: "PT" RBC (10*6/?L) Date Value 08/08/2024 3.65 (L) K (mmol/L) Date Value 08/08/2024 3.7 INR (no units) Date Value 05/20/2017 1.0 PLT (10*3/?L) Date Value 08/08/2024 238 CALCIUM (mg/dL) Date Value 08/08/2024 8.2 (L) HGB (g/dL) Date Value 08/08/2024 10.8 (L) CL (mmol/L) Date Value 08/08/2024 105 aPTT HCT (%) Date Value 08/08/2024 33.3 (L) BUN (mg/dL) Date Value 08/08/2024 83 (H) APTT Patient (Seconds) Date Value 05/20/2017 33 CREATININE (mg/dL) Date Value 08/08/2024 9.51 (H) IMAGING - reviewed, pertinent results as below: Hospital Encounter on 08/08/24 CT THORAX WO CONTRAST Narrative Indication: Pleural effusion, malignancy suspected Abnormal CT A/P with fluid / mass ? in lung space; Cr >9 Comparison: None RL: [id number] ORDERING PHYSICIAN: SOPHIE SCHUSTER TECHNIQUE: Multidetector row helical CT of the chest was performed without administration of intravenous contrast. Coronal and sagittal reformations were obtained. Automated dose lowering techniques and/or adjustment according to patient size were utilized for this exam. FINDINGS: LUNG NODULES: None. Lungs there are patchy airspace opacities in the left lower lobe. PLEURA: Small left pleural effusion. MEDIASTINUM/HILUM/AXILLA: No adenopathy. HEART: Heart size normal. No pericardial effusion. CORONARY ARTERY CALCIFICATION: Moderate calcified plaque throughout the coronary arteries. Calcified small spleen Impression 1. Patchy airspace opacities in the left lower lobe concerning for pneumonia. 2. Small left pleural effusion. ABDOMEN PELVIS WO CONTRAST Narrative EXAM: CT ABDOMEN PELVIS WO CONTRAST HISTORY: 69 years old Male with Flank pain, kidney stone suspected acute right flank pain with hematuria and ANNA COMPARISON: None. TECHNIQUE AND FINDINGS: Contiguous axial imaging from the level of the lung bases through the pubic symphysis was performed after administration of intravenous contrast. Coronal and sagittal reconstructions were obtained. Auto mA and/or iterative reconstruction were used to reduce radiation dose. FINDINGS: LOWER THORAX: Left basilar bronchial wall thickening with the patchy nodular airspace opacities and tree-in-bud pattern representing aspiration changes versus bronchopneumonia. The lungs bases are clear. No cardiomegaly. LIVER: No focal hepatic lesions. Normal contour. Scattered subcentimeter calcified granulomas. GALLBLADDER AND BILIARY TREE: No biliary ductal dilation. No gallbladder wall thickening. SPLEEN: No splenomegaly. Scattered subcentimeter calcified granulomas. PANCREAS: No ductal dilation or masses. ADRENAL GLANDS: No adrenal nodules. KIDNEYS: Bilaterally atrophic kidneys. No hydronephrosis, stones, or masses. PERITONEUM AND RETROPERITONEUM: No free air or fluid. LYMPH NODES: No lymphadenopathy. GI TRACT: No dilation or wall thickening. Appendix is normal. Scattered transverse descending and sigmoid colon diverticula without adjacent fat stranding to suggest acute diverticulitis. PELVIS/BLADDER: The urinary bladder is decompressed and unremarkable. VESSELS: Atherosclerotic calcification of the abdominal aorta and its branches. BONES AND SOFT TISSUES: Small bilateral fat containing inguinal hernias. Small fat-containing umbilical hernia. Multilevel degenerative changes of the distal thoracic and lumbar spine in the form of endplate osteophytosis, facet arthrosis and vacuum disc phenomenon. No acute fracture or dislocation is noted. No suspicious osseous lesions are present. Impression No acute intra-abdominal process. No nephrolithiasis or hydronephrosis. Bilaterally atrophic kidneys suggestive of medical renal disease. Colonic diverticulosis. Left basilar aspiration changes versus bronchopneumonia. Preliminary Report Dictated by Resident: Canelo T Smooth ASSESSMENT: 1. Acute on chronic kidney disease; GFR less than 10 2. Metabolic acidosis 3. UTI 4. Leukocytosis 5. Depression PLAN: 1. Acute on chronic kidney disease with a GFR less than 10 and metabolic acidosis; continue with IV fluids with bicarb drip. Renal ultrasound. Patient with bilateral atrophy of the kidneys. Nephrology consulted. Patient may need surgical consultation for hemodialysis access catheter pending nephrology evaluation. Continue with gentle hydration and will reassess kidney function in the morning. 2. UTI; continue with IV antibiotic therapy. 3. Depression; resume antidepressant. DVT prophylaxis: enoxaparin Stress ulcer prophylaxis: pantoprazole Code status: FULL Advanced Care Planning (Z71.89) Above assessment and plan discussed at length with patient, patient expressed full understanding. Questions and concerned addressed. Surrogate decision maker: NO Level of care expected after discharge: HOME Time spent: 3 minutes discussing the advanced care plan Smoking Cessation: (Z71.6) Tobacco user?: NO Patient will require inpatient stay of 2 midnights or more given high risk of morbidity and mortality. [facility] was verified during stay Linda Byrne MD IM-INTERNAL MEDICINE STAFF [facility] Procedure Notes Date/Time Note Provider Source 2024-08-12 13:30:00 Procedure(s): IR BIOPSY RENAL PERCUTANEOUS WITH ULTRASOUND Patient recieved to Radiology for LEFT renal biopsy . Indication for procedure is ANNA Pt identified using name and . industrial electrical technician monitoring is Inga Randolph and Rita Gardner IR Faculty supervising is Dr. Barragan obtained consent as 1411 Invasive procedure checklist completed at 1420 Time out completed at 1422 Pre-procedure vitals are: BP 141/84 HR 75 O2 94 Post procedure vitals are: BP 144/81 HR 73 O2 93 Specimen left kidney 2.3 cm 2 sample Post procedure disposition return to room Rita Gardner [facility] 2024-08-12 13:30:00 VASCULAR AND INTERVENTIONAL RADIOLOGY PROCEDURE NOTE Pre-procedure diagnosis: Acute kidney injury Post-procedure diagnosis: same Procedure: Successful US guided left [place] kidney biopsy Findings: Two 18 G 2.3 cm samples Complications: none immediate Condition: unchanged Estimated blood loss: less than 2 mL Full dictated note to follow in PACS. [facility] Notes Date/Time Note Provider Source 2024-12-09 09:42:42 Pt's daughter, Jennifer updated that surgery is progressing as expected. [employer] Arlin Cruz RN [facility] 2024-12-09 08:25:42 Istat potassium 4.7. Reported to Dr. Atkinson [employer] Philip Tello RN [facility] 2024-12-07 11:15:00 Summary: PT zuleyma be TS on DOS. Spoke with Eri at office of Yogi French MD per Maggie in BB . [employer] Silvina Mccann [facility] 2024-12-06 11:01:59 Images from the original note were not included. Your procedure is at [facility] on 12/09/24. The address is [address] [place] [address], [id number]. [facility] nursing staff will call you the workday prior to surgery/procedure between 12-3 pm with your arrival time. When you arrive, please come inside and sign in at the desk. Please note: You may not travel home alone and that includes in a taxi or by bus. We must speak to your Responsible Adult (who will be picking you up) the morning of your procedure, before the start of your procedure. This person must be an adult over the age of 18 years of age. Do not eat any solid food after midnight the night before surgery. May have 8-16 oz of water/clear liquids each hour after midnight, as desired, until two hours prior to arrival to promote hydration. You may take your medications with a sip of water as directed by physician. Anticoagulants will be per physician guidance. Other medication Note(s)/Instructions:Instructe d to hold furosemide morning of surgery. Advised to take omeprazole and hydralazine morning of surgery. Okay to take hydrocodone if needed. Pending screening, we may test for COVID. If a patient tests positive, their cases are cancelled and/or rescheduled. COVID SCREENING NOTE: Denies COVID symptoms, no testing required. Additional requests, questions, concerns:CB number and availability provided. Patient verbalized understanding of pre-op instructions and voiced no further questions at this time. [facility] 2024-10-28 11:11:43 Progress notes from [facility] Placed in Providers box. TA Smith [facility] 2024-09-26 14:15:42 Discharged pr wheelchair accompanied by . Instructions given, voiced understanding. [facility] 2024-09-26 12:42:13 Patient to ED via EMS. EMS reports patient loss balance then fell in their garden bed 30 minutes ago. Denies hitting his head, no LOC. [facility] Ishan Woo RN [facility] 2024-09-16 10:09:[address] Catalan on 09/16/2024 regarding pre/post hydration to cytoxan order written on 09/13/2024: Dr. Catalan is ok to change pre infusion to 500 ml NS infuse over 2 hrs and keep post infusion of 250 ml NS infuse over 1 hr. [facility] Luke Betts [facility] 2024-09-15 09:26:41 Images from the original note were not included. Patient was notified of the results below, he verbally understood and agreed to the plan. Thank you María Elena Cowan MD P Cardiology Nurse Echo with in acceptable limits. Preserved LVEF. No significant valve diease noted Hypertensive heart disease noted. Recommended to bring the blood pressure log for the upcoming office visit. [facility] Sissy Hendricks MA [facility] 2024-09-14 09:00:00 Echo with in acceptable limits. Preserved LVEF. No significant valve diease noted Hypertensive heart disease noted. Recommended to bring the blood pressure log for the upcoming office visit. [facility] 2024-08-31 12:07:38 Ordered. T [facility] 2024-08-26 10:43:31 Please review and advise if okay to place referral. Recent Visits Date Type Provider Dept 08/06/24 Office Visit Sheyla Trevizo PA [facility] 07/09/24 Office Visit Raul Pryor FNP [facility] 03/08/24 Office Visit Raul Pryor FNP [facility] 01/06/24 Office Visit Raul Pryor FNP [facility] 12/09/23 Office Visit Raul Pryor FNP [facility] 06/04/23 Office Visit Sheyla Trevizo PA [facility] 04/18/23 Office Visit Sheyla Trevizo PA [facility] 04/04/23 Office Visit Sheyla Trevizo PA [facility] Showing recent visits within past 540 days with a meds authorizing provider and meeting all other requirements Today's Visits Date Type Provider Dept 08/26/24 Appointment Nicki Baca PA-C [facility] Showing today's visits with a meds authorizing provider and meeting all other requirements Future Appointments Date Type Provider Dept 09/08/24 Appointment Raul Pryor FNP [facility] Showing future appointments within next 150 days with a meds authorizing provider and meeting all other requirements [facility] 2024-08-26 10:40:01 Ramirez Andre is a 69 year old male Pt is scheduled for a follow up appt with Dr. Cowan on 09/03 with an hmo insurance plan. Please have JOSEPH Trevizo place a referral to Dr. Cowan prior to appt to avoid a delay in pt care. Val Cotton [facility] 2024-08-18 11:23:18 HEMODIALYSIS NURSING NOTE Number Hours: 3.0 hours Bath: 3K 3 Calcium Heparin: zero Access: right Catheter permanent IJ Net UF: 1500 ml Weight: inaccurate bedscale Post BP 141/70 Post Pulse 67 Antibiotics/Medications Given: none Complications/Events of Treatment: Patient tolerated and completed the treatment. Catheter dressing changed, flushed and packed with heparin. Left the room stable and not in distress Verbal report given to Jer Everett Mode of Transport Back to Unit: NA - patient done at bedside 2214 See hemodialysis flowsheet for details of treatment. Jocelyn Oliveira RN [facility] 2024-08-18 07:58:36 Hemodialysis Plan of care reviewed r/t treatment time & UF goal. Also reviewed possible side effects of HD tx, such as s/s of hypotension, cramping (during tx and at rare times after tx), N/V, CP or any other concerns. Patient acknowledge understanding of treatment plan. [facility] 2024-08-17 22:43:25 Problem: Pain Goal: Control of pain at or below patient's documented comfort goal Outcome: Progressing as expected Goal: Reduction in pain sensation Outcome: Progressing as expected Problem: Falls, Risk of Goal: Absence of falls Outcome: Progressing as expected Problem: Urinary Elimination - Impaired Goal: Return to baseline elimination pattern Outcome: Progressing as expected Problem: Bleeding, Risk of Goal: Absence of impaired coagulation signs and symptoms Outcome: Progressing as expected Goal: Absence of active bleeding Outcome: Progressing as expected Problem: Venous Thromboembolism, (actual or risk of) Goal: Absence of venous thromboembolism (Risk) Outcome: Progressing as expected Problem: Procedure Routine Goal: Knowledge of procedure Outcome: Progressing as expected Everette Randolph RN [facility] 2024-08-17 12:44:26 Problem: Pain Goal: Control of pain at or below patient's documented comfort goal Outcome: Progressing as expected Goal: Reduction in pain sensation Outcome: Progressing as expected Problem: Falls, Risk of Goal: Absence of falls Outcome: Progressing as expected Problem: Urinary Elimination - Impaired Goal: Return to baseline elimination pattern Outcome: Progressing as expected Problem: Bleeding, Risk of Goal: Absence of impaired coagulation signs and symptoms Outcome: Progressing as expected Goal: Absence of active bleeding Outcome: Progressing as expected Problem: Venous Thromboembolism, (actual or risk of) Goal: Absence of venous thromboembolism (Risk) Outcome: Progressing as expected Problem: Procedure Routine Goal: Knowledge of procedure Outcome: Progressing as expected Vladimir Joshi RN [facility] 2024-08-16 20:39:37 Problem: Pain Goal: Control of pain at or below patient's documented comfort goal Outcome: Progressing as expected Goal: Reduction in pain sensation Outcome: Progressing as expected Problem: Falls, Risk of Goal: Absence of falls Outcome: Progressing as expected Problem: Urinary Elimination - Impaired Goal: Return to baseline elimination pattern Outcome: Progressing as expected Problem: Bleeding, Risk of Goal: Absence of impaired coagulation signs and symptoms Outcome: Progressing as expected Goal: Absence of active bleeding Outcome: Progressing as expected Problem: Venous Thromboembolism, (actual or risk of) Goal: Absence of venous thromboembolism (Risk) Outcome: Progressing as expected Problem: Procedure Routine Goal: Knowledge of procedure Outcome: Progressing as expected [facility] 2024-08-16 18:40:35 HEMODIALYSIS NURSING NOTE Number Hours: 3.5 hours Bath: 3K 3 Calcium bicarb 33 Heparin: zero Access: right Catheter permanent subclavian Net UF: 1.5 L Weight: pre 127.5 kg, post 126 kg bed scale Post BP 148/71 Post Pulse 66 Antibiotics/Medications Given: none Complications/Events of Treatment: none. Patient denied complaints and tolerated treatment. Left patient in room without distress nor complications, bed in lowest position, side rails up x2, call rubio within reach, and endorsed to primary RN. Verbal report to: JOSHUA Turner Mode of Transport Back to Unit: NA - patient done at bedside [place] 2214 See hemodialysis flowsheet for details of treatment. T Vandana Escobedo RN [facility] 2024-08-16 16:19:03 Problem: Pain Goal: Control of pain at or below patient's documented comfort goal Outcome: Progressing as expected Goal: Reduction in pain sensation Outcome: Progressing as expected Problem: Falls, Risk of Goal: Absence of falls Outcome: Progressing as expected Problem: Urinary Elimination - Impaired Goal: Return to baseline elimination pattern Outcome: Progressing as expected Problem: Bleeding, Risk of Goal: Absence of impaired coagulation signs and symptoms Outcome: Progressing as expected Goal: Absence of active bleeding Outcome: Progressing as expected Problem: Venous Thromboembolism, (actual or risk of) Goal: Absence of venous thromboembolism (Risk) Outcome: Progressing as expected Problem: Procedure Routine Goal: Knowledge of procedure Outcome: Progressing as expected Yue Talbot RN [facility] 2024-08-16 15:24:59 Problem: Procedure Routine Goal: Knowledge of procedure Outcome: Progressing as expected Note: Patient is new to dialysis. Explained basic education on dialysis process/theory, removal of waste products and fluid during treatment; care of the dialysis access; and need for permanent access. Explained potential complications such as hypotension, chest discomfort, N/V and cramping during tx and at rare times after tx. Also explained basic renal diet overview until patient has been seen by LDRD to received their own specific diet plan, and fluid restriction. Patient verbalized understanding of some topics and asked appropriate questions on others. As patient is new to hemodialysis, reinforcement of teaching is needed. [facility] 2024-08-16 00:44:20 Problem: Pain Goal: Control of pain at or below patient's documented comfort goal Outcome: Progressing as expected Goal: Reduction in pain sensation Outcome: Progressing as expected Problem: Falls, Risk of Goal: Absence of falls Outcome: Progressing as expected Problem: Urinary Elimination - Impaired Goal: Return to baseline elimination pattern Outcome: Progressing as expected Problem: Bleeding, Risk of Goal: Absence of impaired coagulation signs and symptoms Outcome: Progressing as expected Goal: Absence of active bleeding Outcome: Progressing as expected Problem: Venous Thromboembolism, (actual or risk of) Goal: Absence of venous thromboembolism (Risk) Outcome: Progressing as expected Problem: Procedure Routine Goal: Knowledge of procedure Outcome: Progressing as expected Alvina Jo RN [facility] 2024-08-15 17:16:38 Problem: Pain Goal: Control of pain at or below patient's documented comfort goal Outcome: Progressing as expected Goal: Reduction in pain sensation Outcome: Progressing as expected Problem: Falls, Risk of Goal: Absence of falls Outcome: Progressing as expected Problem: Urinary Elimination - Impaired Goal: Return to baseline elimination pattern Outcome: Progressing as expected Problem: Bleeding, Risk of Goal: Absence of impaired coagulation signs and symptoms Outcome: Progressing as expected Goal: Absence of active bleeding Outcome: Progressing as expected Problem: Venous Thromboembolism, (actual or risk of) Goal: Absence of venous thromboembolism (Risk) Outcome: Progressing as expected Problem: Procedure Routine Goal: Knowledge of procedure Outcome: Progressing as expected [facility] 2024-08-14 21:57:21 Problem: Pain Goal: Control of pain at or below patient's documented comfort goal Outcome: Progressing as expected Goal: Reduction in pain sensation Outcome: Progressing as expected Problem: Falls, Risk of Goal: Absence of falls Outcome: Progressing as expected Problem: Urinary Elimination - Impaired Goal: Return to baseline elimination pattern Outcome: Progressing as expected Problem: Bleeding, Risk of Goal: Absence of impaired coagulation signs and symptoms Outcome: Progressing as expected Goal: Absence of active bleeding Outcome: Progressing as expected Problem: Venous Thromboembolism, (actual or risk of) Goal: Absence of venous thromboembolism (Risk) Outcome: Progressing as expected Problem: Procedure Routine Goal: Knowledge of procedure Outcome: Progressing as expected [facility] 2024-08-14 16:17:01 Problem: Pain Goal: Control of pain at or below patient's documented comfort goal Outcome: Progressing as expected Goal: Reduction in pain sensation Outcome: Progressing as expected Problem: Falls, Risk of Goal: Absence of falls Outcome: Progressing as expected Problem: Urinary Elimination - Impaired Goal: Return to baseline elimination pattern Outcome: Progressing as expected Problem: Bleeding, Risk of Goal: Absence of impaired coagulation signs and symptoms Outcome: Progressing as expected Goal: Absence of active bleeding Outcome: Progressing as expected Problem: Venous Thromboembolism, (actual or risk of) Goal: Absence of venous thromboembolism (Risk) Outcome: Progressing as expected Problem: Procedure Routine Goal: Knowledge of procedure Outcome: Progressing as expected [facility] 2024-08-13 21:15:36 Problem: Pain Goal: Control of pain at or below patient's documented comfort goal Outcome: Progressing as expected Goal: Reduction in pain sensation Outcome: Progressing as expected Problem: Falls, Risk of Goal: Absence of falls Outcome: Progressing as expected Problem: Urinary Elimination - Impaired Goal: Return to baseline elimination pattern Outcome: Progressing as expected Problem: Bleeding, Risk of Goal: Absence of impaired coagulation signs and symptoms Outcome: Progressing as expected Goal: Absence of active bleeding Outcome: Progressing as expected Problem: Venous Thromboembolism, (actual or risk of) Goal: Absence of venous thromboembolism (Risk) Outcome: Progressing as expected Problem: Procedure Routine Goal: Knowledge of procedure Outcome: Progressing as expected T [facility] 2024-08-13 18:12:06 Problem: Pain Goal: Control of pain at or below patient's documented comfort goal Outcome: Progressing as expected Goal: Reduction in pain sensation Outcome: Progressing as expected Problem: Falls, Risk of Goal: Absence of falls Outcome: Progressing as expected Problem: Urinary Elimination - Impaired Goal: Return to baseline elimination pattern Outcome: Progressing as expected Problem: Bleeding, Risk of Goal: Absence of impaired coagulation signs and symptoms Outcome: Progressing as expected Goal: Absence of active bleeding Outcome: Progressing as expected Problem: Venous Thromboembolism, (actual or risk of) Goal: Absence of venous thromboembolism (Risk) Outcome: Progressing as expected Problem: Procedure Routine Goal: Knowledge of procedure Outcome: Progressing as expected T Nishi Delarosa RN [facility] 2024-08-13 12:30:29 Tx completed. Blood returned. Ports flushed with normal saline, packed with heparin, capped and secured. Catheter dressing intact, no bleeding noted. Patient left unit without complaints or distress. HEMODIALYSIS NURSING NOTE Number Hours: 3.0 hours Bath: 3K 3 Calcium Heparin: zero Access: right Catheter permanent IJ Net UF: 1.5 L Weight: pre 125.4 kg, post 123.3 kg Post BP 162/84 Post Pulse 55 Antibiotics/Medications Given: None Complications/Events of Treatment: Patient tolerated dialysis treatment with no issues. Handoff report completed Mode of Transport Back to Unit: NA - patient done at bedside See hemodialysis flowsheet for details of treatment. T [facility] [employer] 2024-08-13 09:36:43 Patient educated treatment as prescribed by dry cleaning machine operator helper regarding current treatment time ordered and fluid removal goals. Educated on initiation, monitoring, and termination of hemodialysis treatment, and possible complications like cramping, lightheadedness, cramping, dizziness, nausea, or headache during and post treatment and notifying healthcare team. Patient verbalized understanding of education. T [facility] [employer] 2024-08-12 22:35:14 Problem: Pain Goal: Control of pain at or below patient's documented comfort goal Outcome: Progressing as expected Goal: Reduction in pain sensation Outcome: Progressing as expected Problem: Falls, Risk of Goal: Absence of falls Outcome: Progressing as expected Problem: Urinary Elimination - Impaired Goal: Return to baseline elimination pattern Outcome: Progressing as expected Problem: Bleeding, Risk of Goal: Absence of impaired coagulation signs and symptoms Outcome: Progressing as expected Goal: Absence of active bleeding Outcome: Progressing as expected Problem: Venous Thromboembolism, (actual or risk of) Goal: Absence of venous thromboembolism (Risk) Outcome: Progressing as expected Problem: Procedure Routine Goal: Knowledge of procedure Outcome: Progressing as expected T [facility] [employer] 2024-08-12 18:26:38 Problem: Pain Goal: Control of pain at or below patient's documented comfort goal Outcome: Progressing as expected Goal: Reduction in pain sensation Outcome: Progressing as expected Problem: Falls, Risk of Goal: Absence of falls Outcome: Progressing as expected Problem: Urinary Elimination - Impaired Goal: Return to baseline elimination pattern Outcome: Progressing as expected Problem: Bleeding, Risk of Goal: Absence of impaired coagulation signs and symptoms Outcome: Progressing as expected Goal: Absence of active bleeding Outcome: Progressing as expected Problem: Venous Thromboembolism, (actual or risk of) Goal: Absence of venous thromboembolism (Risk) Outcome: Progressing as expected Problem: Procedure Routine Goal: Knowledge of procedure Outcome: Progressing as expected [facility] 2024-08-12 08:10:12 Hemodialysis note: Pt's HD ordered for today, postpone til 08/13/24 per Nephrology (may use same orders). ADC charge nurse informed. [facility] Kris Holly RN [facility] 2024-08-12 07:53:09 Signed. Thanks. [facility] 2024-08-11 21:43:08 Problem: Pain Goal: Control of pain at or below patient's documented comfort goal Outcome: Progressing as expected Goal: Reduction in pain sensation Outcome: Progressing as expected Problem: Falls, Risk of Goal: Absence of falls Outcome: Progressing as expected Problem: Urinary Elimination - Impaired Goal: Return to baseline elimination pattern Outcome: Progressing as expected Problem: Bleeding, Risk of Goal: Absence of impaired coagulation signs and symptoms Outcome: Progressing as expected Goal: Absence of active bleeding Outcome: Progressing as expected Problem: Venous Thromboembolism, (actual or risk of) Goal: Absence of venous thromboembolism (Risk) Outcome: Progressing as expected Problem: Procedure Routine Goal: Knowledge of procedure Outcome: Progressing as expected [facility] 2024-08-11 15:27:24 Problem: Pain Goal: Control of pain at or below patient's documented comfort goal Outcome: Progressing as expected Goal: Reduction in pain sensation Outcome: Progressing as expected Problem: Falls, Risk of Goal: Absence of falls Outcome: Progressing as expected Problem: Urinary Elimination - Impaired Goal: Return to baseline elimination pattern Outcome: Progressing as expected Problem: Bleeding, Risk of Goal: Absence of impaired coagulation signs and symptoms Outcome: Progressing as expected Goal: Absence of active bleeding Outcome: Progressing as expected Problem: Venous Thromboembolism, (actual or risk of) Goal: Absence of venous thromboembolism (Risk) Outcome: Progressing as expected Problem: Procedure Routine Goal: Knowledge of procedure Outcome: Progressing as expected T Junie Pabon RN [facility] 2024-08-11 11:48:35 HEMODIALYSIS NURSING NOTE Number Hours: 3.0 hours Bath: 3K 3 Calcium Heparin: zero Access: right Catheter permanent IJ Net UF: 1000 ml. Weight: pre 123.4 kg, post 122.4 kg Post BP 159/85 Post Pulse 61 Antibiotics/Medications Given: none Complications/Events of Treatment: Tolerated treatment well. V/S stable throughout HD. Seen by Dr. Catalan during HD. Verbal report given to Junie EVERETT. Mode of Transport Back to Unit: NA - patient done at bedside See hemodialysis flowsheet for details of treatment. [facility] 2024-08-11 08:41:04 Hemodialysis Plan of care reviewed r/t treatment time & UF goal. Also reviewed possible side effects of HD tx, such as s/s of hypotension, cramping (during tx and at rare times after tx), N/V, CP or any other concerns. Patient acknowledge understanding of treatment plan. [facility] 2024-08-11 01:46:06 Problem: Pain Goal: Control of pain at or below patient's documented comfort goal Outcome: Progressing as expected Goal: Reduction in pain sensation Outcome: Progressing as expected Problem: Falls, Risk of Goal: Absence of falls Outcome: Progressing as expected Problem: Urinary Elimination - Impaired Goal: Return to baseline elimination pattern Outcome: Progressing as expected Problem: Bleeding, Risk of Goal: Absence of impaired coagulation signs and symptoms Outcome: Progressing as expected Goal: Absence of active bleeding Outcome: Progressing as expected Problem: Venous Thromboembolism, (actual or risk of) Goal: Absence of venous thromboembolism (Risk) Outcome: Progressing as expected Miguelina Acevedo RN [facility] 2024-08-10 19:11:26 HEMODIALYSIS NURSING NOTE Number Hours: 3.0 hours (1st HD) Bath: 4K 3 Calcium Heparin: zero Access: right Catheter permanent subclavian Net UF: 0 L Weight: pre 124 kg, post 124 kg bed scale Post BP 175/88 Post Pulse 61 Antibiotics/Medications Given: none Complications/Events of Treatment: none. Patient denied complaints and tolerated treatment. Left patient in room without distress nor complications, bed in lowest position, side rails up x2, call rubio within reach, and endorsed to primary RN. Verbal report to: JOSHUA Mcintyre Mode of Transport Back to Unit: NA - patient done at bedside [facility] 2214 See hemodialysis flowsheet for details of treatment. [facility] 2024-08-10 16:14:16 Problem: Pain Goal: Control of pain at or below patient's documented comfort goal Outcome: Progressing as expected Goal: Reduction in pain sensation Outcome: Progressing as expected Problem: Falls, Risk of Goal: Absence of falls Outcome: Progressing as expected Problem: Urinary Elimination - Impaired Goal: Return to baseline elimination pattern Outcome: Progressing as expected Problem: Bleeding, Risk of Goal: Absence of impaired coagulation signs and symptoms Outcome: Progressing as expected Goal: Absence of active bleeding Outcome: Progressing as expected Problem: Venous Thromboembolism, (actual or risk of) Goal: Absence of venous thromboembolism (Risk) Outcome: Progressing as expected Problem: Procedure Routine Goal: Knowledge of procedure Outcome: Progressing as expected Mell Mike RN [facility] 2024-08-10 15:52:17 Problem: Procedure Routine Goal: Knowledge of procedure Outcome: Progressing as expected Patient is new to dialysis. Explained basic education on dialysis process/theory, removal of waste products and fluid during treatment; care of the dialysis access; and need for permanent access. Explained potential complications such as hypotension, chest discomfort, N/V and cramping during tx and at rare times after tx. Also explained basic renal diet overview until patient has been seen by [facility] to received their own specific diet plan, and fluid restriction. Patient verbalized understanding of some topics and asked appropriate questions on others. As patient is new to hemodialysis, reinforcement of teaching is needed. [facility] 2024-08-10 15:12:22 Please review, complete, and sign if appropriate. [facility] 2024-08-10 12:06:38 Ramirez Andre is a 69 year old male. Patient is requesting a referral to: Dept: Nephrology Reason for referral: N18.32, N17.9 Duration of problem: Internal / External referral: External Name of provider / location patient requesting: Dr. Maida Catalan Phone number: [phone] Fax number: [phone] Appt already scheduled?: yes If yes, date of appt.: 08/13/24 at 1pm Kia Esteban [facility] 2024-08-10 10:30:45 FULL OPERATIVE NOTE Date of Surgery: 08/10/2024 Preoperative diagnosis: End stage renal failure requiring hemodialysis Postoperative diagnosis: End stage renal failure requiring hemodialysis Procedure: Ultrasound guided dialysis catheter placement under fluoroscopy (CPT 44698, 77877, 64256) Surgeons: Faculty: Keely Miner MD Resident: Jessica Ly DO Anesthesia: Intravenous conscious sedation with local anesthesia EBL: 10 mL Sponge, needle, and instrument count: Correct at the end of the case X2 Packs, drains: None Specimen: None Findings: Internal jugular vein identified on ultrasound Complications: None Indications: Ramirez Andre is a 69 year old male with a history or CKD and now ESRD in need of dialysis. Diagnosis and treatment options were discussed with the patient, the patient wished to proceed with surgery. Procedure: Risks, benefits, alternatives were explained to the patient; all questions were answered; and informed consent was obtained. The patient was brought to the operating room and placed in the supine position on the operating room table. IV sedation with continuous cardiopulmonary monitoring was performed by the EMERGENCY CREW SUPERVISOR without difficulty. SCD's were placed, initiated before sedation, and used throughout the operative procedure. Antibiotics were administered prior to skin incision. The patient s neck and chest were prepped and draped in the standard sterile fashion. A time out was performed verifying patient data, allergies, and planned procedure prior to skin incision. The patient was placed in the Trendelenburg position. A solution of 1% lidocaine with epinephrine mixed in a 1:1 ratio with 0.25% Marcaine with epinephrine was used to anesthetize the skin and subcutaneous tissue in the right neck at the confluence of the sternocleidomastoid muscle. The ultrasound was used to identify the right internal jugular vein. The right internal jugular vein was accessed without difficulty. A guidewire was placed through the needle and the needle was removed. The course of the guidewire was confirmed on fluoroscopy. Using a #15 scalpel a skin incision was made at the venotomy site to accommodate the dialysis catheter. Attention was then turned to the right chest wall. The right chest wall was instilled with a solution of 1% lidocaine with epinephrine mixed in a 1:1 ratio with 0.25% Marcaine with epinephrine. Using a #15 scalpel a small skin incision was made in the right chest wall. The dialysis catheter was then attached to the tunneling device and tunneled from the right chest wall incision to the right neck venotomy site. Attention was then returned to the guidewire. The tract at the venotomy site was then serially dilated to accommodate the dialysis catheter. The break away sheath was then placed over the guidewire and the guidewire was removed. The dialysis catheter was advanced into the sheath. The sheath was then removed. Fluoroscopy was used to confirm that the tip of the catheter was in the right atrium. The arterial and venous ports were then aspirated of air and flushed with heparinized saline. The catheter was secured to the chest wall using 3-0 Nylon suture. The operative site was cleaned and dried. A sterile dressing was applied. The patient was transferred form the operating room to the recovery room in satisfactory condition. The patient tolerated the procedure well, there were no complications. All counts were correct x 2 at completion of the procedure. Dr. Miner was present and scrubbed for the entirety of the operative procedure. Jessica Ly, General Surgery PGY-4 Associated attestation - Keely Miner MD - 08/10/2024 2:20 PM CDT I was present for and supervised the entire procedure(s). Post procedure CXR with no pneumothorax and tunneled line in good position R IJ tunneled line placement under fluoroscopy and ultrasound Keely Miner MD SURGERY [facility] 2024-08-09 21:43:39 Problem: Pain Goal: Control of pain at or below patient's documented comfort goal Outcome: Progressing as expected Goal: Reduction in pain sensation Outcome: Progressing as expected Problem: Falls, Risk of Goal: Absence of falls Outcome: Progressing as expected Problem: Urinary Elimination - Impaired Goal: Return to baseline elimination pattern Outcome: Progressing as expected Problem: Bleeding, Risk of Goal: Absence of impaired coagulation signs and symptoms Outcome: Progressing as expected Goal: Absence of active bleeding Outcome: Progressing as expected Problem: Venous Thromboembolism, (actual or risk of) Goal: Absence of venous thromboembolism (Risk) Outcome: Progressing as expected Rosy Ceron RN [facility] 2024-08-09 12:18:17 Problem: Pain Goal: Control of pain at or below patient's documented comfort goal Outcome: Progressing as expected Goal: Reduction in pain sensation Outcome: Progressing as expected Problem: Falls, Risk of Goal: Absence of falls Outcome: Progressing as expected Problem: Urinary Elimination - Impaired Goal: Return to baseline elimination pattern Outcome: Progressing as expected Problem: Bleeding, Risk of Goal: Absence of impaired coagulation signs and symptoms Outcome: Progressing as expected Goal: Absence of active bleeding Outcome: Progressing as expected Problem: Venous Thromboembolism, (actual or risk of) Goal: Absence of venous thromboembolism (Risk) Outcome: Progressing as expected T [facility] 2024-08-08 22:03:47 Problem: Pain Goal: Control of pain at or below patient's documented comfort goal Outcome: Progressing as expected Goal: Reduction in pain sensation Outcome: Progressing as expected Problem: Falls, Risk of Goal: Absence of falls 08/08/20242202 by Rosy Ceron RN Outcome: Progressing as expected 08/08/20242158 by Rosy Ceron RN Outcome: Progressing as expected Problem: Urinary Elimination - Impaired Goal: Return to baseline elimination pattern Outcome: Progressing as expected Problem: Bleeding, Risk of Goal: Absence of impaired coagulation signs and symptoms 08/08/20242202 by Rosy Ceron RN Outcome: Progressing as expected 08/08/20242158 by Rosy Ceron RN Outcome: Progressing as expected Goal: Absence of active bleeding Outcome: Progressing as expected Problem: Venous Thromboembolism, (actual or risk of) Goal: Absence of venous thromboembolism (Risk) Outcome: Progressing as expected T [facility] 2024-08-08 16:15:00 Patient transported via stretcher to room 2214 accompanied by family members. Patient alert, warm, dry, pink-in no distress upon departure from ER [facility] Markus Cotton RN [facility] 2024-08-08 16:00:39 Nurse Report Report given to Luis EVERETT on Med/surg. Chief complaint, assessment findings, infusion verify and orders reviewed. Plan of care discussed at bedside with patient and both nurses. Patient/family members verbalized understanding. MARKUS COTTON RN [facility] 2024-08-08 13:05:14 Report received and care assumed. [facility] 2024-08-08 13:00:00 Report to Jennifer EVERETT [facility] 2024-08-08 12:28:39 Resting with eyes closed no distress, family at bedside [facility] 2024-08-08 11:44:20 Ramirez Andre is a 69 year old male c/o blood in urine since , states on antibiotics for a urine infection, no emesis, states generalized weakness since Friday, states Neighbors [employer] GR[employer]ER told to go to ER [facility] Mecca Maynard RN [facility] 2024-08-08 11:37:00 [facility] Emergency Department Note Patient Name: Ramirez Andre Date of : 1955 69 year old male Treatment Room: [facility] Primary Care Physician: Sheyla Trevizo Patient Escorted by: Family [5] Mode of Arrival: Personal means [1] EMS Treatment Prior to ED Arrival: Travel and Exposure Screening: Symptoms Does patient have any of these symptoms?: (not recorded) Exposure Screening Has patient had contact with someone with a communicable disease in the last month?: (not recorded) Diseases exposed to:: (not recorded) Is Patient ?: (not recorded) Exposure Date: (not recorded) Chief Complaint: Chief Complaint Patient presents with Blood In Urine History of Present Illness: Referred to ED by PCP Office due to outpatient lab abnormalities, increased Cr, decreased GFR compared to baseline with concern for ANNA and CKD. Onset 08/05 with hematuria and right flank pain. No dysuria, frequency, difficulty urinating. (+) subjective fever. (+) sinus congestion, cold symptoms as well. No chest pain, dyspnea. No abdominal pain. No nausea, vomiting, diarrhea. Recent encounter: 1. 08/06/24. PCP Office. Hematuria, cold symptoms. Urine dip (+) nit, (+) LE. COVID/Flu (-). Rx keflex, tessalon. Outpatient labs as noted above. History provided by: Patient, spouse and relative (grand daughter) Past Medical History/Immunizations: Past Medical History: Diagnosis Date CHF (congestive heart failure) Chronic pain of both knees CKD (chronic kidney disease) Depression Exposure to asbestos Hypertension Obesity Sleep apnea with use of continuous positive airway pressure (CPAP) Stroke 2006 R sided weakness Tetanus received in last 5 years: Unknown Childhood immunizations: Up-to-date Allergies: No Known Allergies Past Social History: Tobacco Use Never smoked or used smokeless tobacco. Alcohol Use No. Drug Use No. Past Surgical History: Past Surgical History: Procedure Laterality Date TOTAL KNEE ARTHROPLASTY Right 05/26/2017 Surgeon: Rizwana Koehler MD; Location: [facility] [place] Review of Systems: Review of Systems Constitutional: Positive for fever. Negative for fatigue. HENT: Positive for congestion. Eyes: Negative. Respiratory: Positive for cough. Negative for shortness of breath. Cardiovascular: Negative. Gastrointestinal: Negative. Genitourinary: Positive for hematuria and flank pain. Negative for dysuria, frequency and difficulty urinating. Skin: Negative. Neurological: Negative. Psychiatric/Behavioral: Negative. Physical Exam: ED Triage Vitals [08/08/24 1144] Weight 121.6 kg (268 lb) Actual or estimated Estimated by patient/family report Height 1.727 m (5' 8") BP (!) 143/88 Pulse 73 Resp 14 Temp 37.4 ?C (99.3 ?F) Temp source Oral SpO2 97 % Measured on Room air Physical Exam Vitals and nursing note reviewed. Constitutional: General: He is not in acute distress. Appearance: Normal appearance. He is not ill-appearing, toxic-appearing or diaphoretic. HENT: Head: Normocephalic and atraumatic. Right Ear: External ear normal. Left Ear: External ear normal. Nose: Nose normal. Mouth/Throat: Mouth: Mucous membranes are moist. Eyes: Extraocular Movements: Extraocular movements intact. Conjunctiva/sclera: Conjunctivae normal. Cardiovascular: Rate and Rhythm: Normal rate and regular rhythm. Pulmonary: Effort: Pulmonary effort is normal. No respiratory distress. Breath sounds: Normal breath sounds. No wheezing, rhonchi or rales. Abdominal: General: There is no distension. Palpations: Abdomen is soft. Tenderness: There is no abdominal tenderness. There is right CVA tenderness. There is no left CVA tenderness. Musculoskeletal: General: Normal range of motion. Cervical back: Normal range of motion. Skin: General: Skin is warm and dry. Neurological: General: No focal deficit present. Mental Status: He is alert. Psychiatric: Mood and Affect: Mood normal. Behavior: Behavior normal. Thought Content: Thought content normal. Judgment: Judgment normal. Radiology: No orders to display Lab Results: Lab Results - No data to display EKG: If EKG completed, see Procedure Note. Orders and Treatments: Orders Placed This Encounter Procedures CT ABDOMEN PELVIS WO CONTRAST CBC WITH DIFF COMP. METABOLIC PANEL (39089) URINALYSIS Orders Placed This Encounter Medications NaCl 0.9% (NS) bolus infusion 1,000 mL First Provider Eval: ED Events Date/Time Event User Comments 08/08/24 1150 Medical Screening Begins SOPHIE SCHUSTER MD -- 08/08/24 1150 First Provider Evaluation SOPHIE SCHUSTER MD -- ED COURSE Diagnosis/Impression as of 08/08/24 1225 Hematuria, unspecified type Malaise Flank pain ANNA (acute kidney injury) Procedures: Procedures MDM: Medical Decision Making Primary impression: acute kidney injury Secondary impression: right flank pain, hematuria, chronic kidney disease, cystitis Differential Diagnoses, including but not limited to: electrolyte / glucose abnl, anemia, ANNA, kidney stone, neoplasm, Problems Addressed: ANNA (acute kidney injury): acute illness or injury Flank pain: acute illness or injury Hematuria, unspecified type: acute illness or injury Malaise: acute illness or injury Amount and/or Complexity of Data Reviewed Independent Historian: Details: self Labs: ordered. Decision-making details documented in ED Course. Radiology: ordered. Decision-making details documented in ED Course. Discussion of management or test interpretation with external provider(s): 1. Case discussed with Hospitalist including presentation, exam, findings, plan. Will evaluate and continue care in Hospital Risk Prescription drug management. Decision regarding hospitalization. Risk Details: Findings and plan discussed with patient. Rapid increased creatinine / decreased GFR compared to baseline. New onset hematuria, uncertain etiology. CT Abd/Pel no apparent stone, neoplasm. Will benefit from further evaluation and treatment in hospital today. Meets AdmissionCare INPT criteria. Flowsheet Documentation: Scoring Tools: No data recorded Disposition/Condition: ED Disposition None Discharge Medications: Patient's Medications START taking these medications No medications on file CONTINUE taking these medications which have NOT CHANGED ASPIRIN 81 MG CHEWABLE TABLET Take 1 tablet by mouth in the morning. BENZONATATE (TESSALON PERLES) 100 MG CAPSULE Take 1 capsule by mouth every 8 (eight) hours as needed for Cough. CEPHALEXIN 500 MG CAPSULE Take 1 capsule by mouth in the morning and 1 capsule in the evening. Do all this for 10 days. DOCUSATE 100 MG CAPSULE Take 1 capsule by mouth in the morning. ESCITALOPRAM OXALATE 10 MG TABLET Take 1 tablet by mouth in the morning. MUST BE SEEN FOR FURTHER REFILLS GARLIC EXTRACT ORAL Take 1,000 mg by mouth. HYDROCODONE-ACETAMINOPHEN 10-325 MG TABLET Take 1 tablet by mouth every 6 (six) hours as needed. HYDROCODONE-ACETAMINOPHEN 7.5-325 MG PER TABLET TAKE 1 TABLET BY MOUTH EVERY 6 HOURS NEEDED LIDOCAINE VISCOUS 2 % SOLUTION APPLY TO WOUND 5 MIN PRIOR TO WOULD CARE DAILY FOR 30 DAYS MUPIROCIN 2 % OINTMENT Apply to area(s) 3 (three) times daily. SANTYL 250 UNIT/GRAM OINTMENT Apply to affected area(s) once daily as needed. TRIAMCINOLONE ACETONIDE 0.1 % OINTMENT Apply to area(s) 2 (two) times daily. START taking Modified Medications as Prescribed No medications on file STOP taking these medications No medications on file Follow-up: PCP Electronically signed by: Sophie Schuster MD 08/08/24 1519 [employer] STAFF [facility] 2024-08-08 11:37:00 AdmissionCare Guideline: Renal Failure (Acute) - INPT, Inpatient Based on the indications selected for the patient, the bed status of Inpatient was determined to be MET The following indications were selected as present at the time of evaluation of the patient: - Clinical Indications for Admission to Inpatient Care - Admission is indicated for 1 or more of the following: - Acute renal failure (stage 3 acute kidney injury), as indicated by 1 or more of the following: - Within past 7 days, rise in serum creatinine to 3 times its baseline value or higher AdmissionCare documentation entered by: Sophie Schuster [facility], 28th edition, Copyright ? 2023 [facility] [facility] All Rights Reserved. [id number]:00 [facility] 2024-08-06 14:30:00 Images from the original note were not included. Venipuncture collection performed by clean technique on the right anticubitus. Total of 1 attempts were made. Slight pressure and a bandage/dressing were applied to the site(s). The patient experienced no complications. The following specimens were processed according to instructions and sent to [facility] laboratories per lab order on 08/06/2024 : LT BLUE SST 1 RED LAV 1 PPT DK GREEN (LiHep) DK GREEN (SodH) MARTIN DK BLUE (K2) DK BLUE (S) ACD Blood Culture NIPT/NTD [facility] 2024-08-02 14:35:38 Notes: MUST BE SEEN FOR FURTHER REFILLS Last Refilled: escitalopram oxalate (LEXAPRO) 10 mg tablet 30 tablet 0 07/02/2024 -- No Sig: Take 1 tablet by mouth in the morning. Follow-up for refills and fasting labs. Sent to pharmacy as: escitalopram 10 mg tablet (Lexapro) Class: eRX Route: Oral Order: [id number] Date/Time Signed: 07/02/2024 16:55 E-Prescribing Status: Receipt confirmed by pharmacy (07/02/2024 4:55 PM CDT) Recent Visits Date Type Provider Dept 07/09/24 Office Visit ShelleyRaul figueroa, PRESIDENT AND CMO [facility] 03/08/24 Office Visit Raul Pryor, PRESIDENT AND CMO [facility] 01/06/24 Office Visit ShelleyInna figueroaie, PRESIDENT AND CMO [facility] 12/09/23 Office Visit Raul Pryor PRESIDENT AND CMO [facility] 06/04/23 Office Visit Sheyla Trevizo PA [facility] 04/18/23 Office Visit Sheyla Trevizo PA [facility] 04/04/23 Office Visit Sheyla Trevizo PA [facility] Showing recent visits within past 540 days with a meds authorizing provider and meeting all other requirements Future Appointments Date Type Provider Dept 09/08/24 Appointment Raul Pryor FNP [facility] Showing future appointments within next 150 days with a meds authorizing provider and meeting all other requirements Kallie Bartholomew MA [facility] 2024-07-09 14:30:00 Images from the original note were not included. Venipuncture collection performed by clean technique on the right anticubitus. Total of 1 attempts were made. Slight pressure and a bandage/dressing were applied to the site(s). The patient experienced no complications. The following specimens were processed according to instructions and sent to [facility] laboratories per lab order on 07/09/2024 : LT BLUE SST 1 RED LAV 2 PPT DK GREEN (LiHep) DK GREEN (SodH) MARTIN DK BLUE (K2) DK BLUE (S) ACD Blood Culture NIPT/NTD [facility] 2024-07-08 12:16:16 Called Pharmacy and inquired about said Rx. They stated that the Rx was called in too soon and Insurance would not cover it therefore they put it on hold. Since I called they will run it again. I called patient and relayed the information per Pharmacy. Patient voiced understanding. Alyx Macias RN [facility] 2024-07-08 12:01:08 Ramirez Andre is a 69 year old male Pt said pharmacy didn't get the rx for Lexapro. Please advise. Matteo Barker [facility] 2024-07-02 16:55:44 Addended by: SHEYLA MCCALLUM on: 07/02/2024 04:55 PM Modules accepted: Orders [facility] 2024-07-02 16:53:42 SILVINA > 1 year ago. Needs to be seen for refills. Sent 30 days. [facility] 2024-07-02 11:45:28 Images from the original note were not included. Notes: 03/26/24 Last Refilled: [facility]/pharmacy #[id number] - [place], [place] - [address] AT [facility] [address] Recent Visits Date Type Provider Dept 03/08/24 Office Visit Raul Pryor FNP [facility] 01/06/24 Office Visit Raul Pryor FNP [facility] 12/09/23 Office Visit Raul Pryor FNP [facility] 06/04/23 Office Visit Sheyla Trevizo PA [facility] 04/18/23 Office Visit Sheyla Trevizo PA [facility] 04/04/23 Office Visit Sheyla Trevizo PA [facility] Showing recent visits within past 540 days with a meds authorizing provider and meeting all other requirements Future Appointments Date Type Provider Dept 07/09/24 Appointment Raul Pryor FNP [facility] Showing future appointments within next 150 days with a meds authorizing provider and meeting all other requirements escitalopram oxalate 10 mg tablet Sig: Take 1 tablet by mouth every morning. MUST BE SEEN FOR FURTHER REFILLS Disp: 90 tablet Refills: 0 Start: 07/02/2024 Class: eRX For: Depression, unspecified depression type Last ordered: 3 months ago (03/26/2024) by JOSEPH Calvillo Psychiatry: Antidepressants [id number]/02/2024 11:23 AM Protocol Details Manual Review: Verify no changes in dose in the last 3 months Valid encounter within last 12 months To be filled at: [facility]/pharmacy #[id number] [place] [id number] AT [facility] T Judy Acevedo MA [facility] [email or web address] 2024-07-02 11:21:34 Ramirez Andre is a 69 year old male Requesting med refill for ESCITALOPRAM OXALATE 10 mg tablet. Please contact and advise. [facility]/pharmacy #[id number] [facility] [address] AT [address] [address] [facility] [email or web address] 2024-06-07 16:19:06 Images from the original note were not included. Patient's daughter was notified of the results below, she verbally understood and agreed to the plan. Thank you María lEena Cowan MD P Cardiology Nurse Creatinine elevated noted to be at 2.6. Rest of the BMP within acceptable limits. Elevated NT-proBNP noted at 1250. Follow-up with nephrology team for further management volume in the setting of chronic CKD and also for management of diuretics. Sissy Hendricks MA [facility] 2024-06-07 09:57:15 I have attempted without success to contact this patient by phone to will try again later. María Elena Cowan MD P Cardiology Nurse Creatinine elevated noted to be at 2.6. Rest of the BMP within acceptable limits. Elevated NT-proBNP noted at 1250. Follow-up with nephrology team for further management volume in the setting of chronic CKD and also for management of diuretics. T [facility] 2024-06-04 13:15:00 Images from the original note were not included. Venipuncture collection performed by clean technique on the left anticubitus. Total of 1 attempts were made. Slight pressure and a bandage/dressing were applied to the site(s). The patient experienced no complications. The following specimens were processed according to instructions and sent to [facility] laboratories per lab order on 06/04/2024 : LT BLUE SST 1 RED LAV 1 PPT DK GREEN (LiHep) DK GREEN (SodH) MARTIN DK BLUE (K2) DK BLUE (S) ACD Blood Culture NIPT/NTD Patient has been identified by and was provided with cup, antiseptic towelette, and clean catch instructions. 1 urine specimen(s) sent. Unpreserved 1 Urine Culture Aptima tube Other urine T [facility] 2024-04-27 12:36:37 Referral sent [facility] 2024-04-27 12:20:33 Patient is scheduled with Cardiology on 05/[address] Cowan and patient is needing a referral for the visit due to insurance. Please advise. Antoniettadavey Acevedo [facility] 2024-04-14 08:37:20 Refill requested for Valsartan HCTZ, does not meet ambulatory refill guidelines. Route to Dr Wilkins for advice Latest Reference Range & Units 01/06/24 16:27 03/08/24 16:12 03/09/24 19:32 03/24/24 09:08 04/12/24 14:30 CREATININE 0.60 - 1.25 mg/dL 3.10 (H) 3.55 (H) 3.63 (H) 3.28 (H) 3.02 (H) (H): Data is abnormally high Susan Alexandra RN [facility] 2024-04-12 14:30:00 Images from the original note were not included. Venipuncture collection performed by clean technique on the left anticubitus. Total of 1 attempts were made. Slight pressure and a bandage/dressing were applied to the site(s). The patient experienced no complications. The following specimens were processed according to instructions and sent to [facility] laboratories per lab order on 04/12/2024 : LT BLUE SST 1 RED LAV PPT DK GREEN (LiHep) DK GREEN (SodH) MARTIN DK BLUE (K2) DK BLUE (S) ACD Blood Culture NIPT/NTD Patient has been identified by and was provided with cup, antiseptic towelette, and clean catch instructions. 2 urine specimen(s) sent. Unpreserved 1 Urine Culture 1 Aptima tube Other urine [facility] 2024-03-24 09:00:00 Images from the original note were not included. Venipuncture collection performed by clean technique on the left anticubitus. Total of 1 attempts were made. Slight pressure and a bandage/dressing were applied to the site(s). The patient experienced no complications. The following specimens were processed according to instructions and sent to [facility] laboratories per lab order on 03/24/2024 : LT BLUE SST 1 RED LAV 1 PPT DK GREEN (LiHep) DK GREEN (SodH) MARTIN DK BLUE (K2) DK BLUE (S) ACD Blood Culture NIPT/NTD Patient has been identified by and was provided with cup, antiseptic towelette, and clean catch instructions. 3 urine specimen(s) sent. Unpreserved 2 Urine Culture 1 Aptima tube Other urine [facility] [email or web address] 2024-03-12 14:05:[address] Cowan. Patient's daughter notified that Dr. Cowan recommends to continue holding lasix until seen by nephrology. Advised patient's daughter to update on his status after being seen by nephrology. 05/03/24. Stacy Chairez RN [facility] [email or web address] 2024-03-11 08:20:21 Patient's daughter contacting clinic to notify that her dad was recently sent to the ER for worsening kidney function by PCP, Raul Pryor. Patient's daughter states that PCP advised that lasix may be contributing to worsening kidney function. Patient has help his lasix for 3 days now. He is currently stable, but advised daughter to monitor for signs of swelling, shortness of breat, cough, weight gain. ER warning signs discussed. Patient has first appointment scheduled with nephrology tomorrow. Patient's daughter would like to notify Dr. Cowan and would like advice on his lasix. Routing to Dr. Cowan. [facility] [email or web address] 2024-03-09 20:54:48 Pt given printed and verbal discharge instructions regarding abnormal labs. 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 PIV d'cd, dressing to site, catheter in tact. Awake, alert oriented, resp reg unlabored, skin w/d, pt leaving amb with steady gait, in no apparent distress, Raul Real RN [facility] 2024-03-09 18:24:25 CC: patient presents to the ER with complaints of abnormal kidney function tests. Patient was sent by PCP. PMHx: see history Awake, alert, oriented, resp reg unlabored, skin warm and dry, color appropriate for race, moves all ext without difficulty, amb with cane. Appears in no distress. Renita Perales RN [facility] 2024-03-09 13:15:00 Images from the original note were not included. Patient has been identified by name and was provided with cup, antiseptic towelette, and clean catch instructions. 1 urine specimen(s) sent. Unpreserved Urine Culture Aptima tube Other urine microalbumin [facility] 2024-03-09 13:15:00 1 Test 1 Extra [facility] 2024-03-08 16:00:00 Images from the original note were not included. Venipuncture collection performed by clean technique on the left anticubitus. Total of 1 attempts were made. Slight pressure and a bandage/dressing were applied to the site(s). The patient experienced no complications. The following specimens were processed according to instructions and sent to [facility] laboratories per lab order on today: LT BLUE SST 1 RED LAV PPT DK GREEN (LiHep) DK GREEN (SodH) MARTIN DK BLUE (K2) DK BLUE (S) ACD Blood Culture NIPT/NTD Patient was unable to use the bathroom patient stated he can bring the specimen and was given a specimen collection kit.Treasure Holley 03/08/2024 4:16 PM was given a urine kit [facility] 2024-01-07 09:34:21 Patient informed of nephrology referral per Alyx RN [facility] 2024-01-07 08:53:19 Patient returning provider phone call, fiona anderson [facility] Maggy Erwin MA [facility] 2024-01-07 08:22:54 Copied from [facility] #[id number]. Topic: Clinical - Medical Advice >> Jan 07, 2024 8:22 AM MyChart Team wrote: Pt returning missed call for results [facility] Magnus Hendricks [facility] 2024-01-07 08:17:06 I tried to call pt to discuss but no answer. [facility] 2024-01-06 16:30:00 Images from the original note were not included. Venipuncture collection performed by clean technique on the left forearm(s). Total of 1 attempts were made. Slight pressure and a bandage/dressing were applied to the site(s). The patient experienced no complications. The following specimens were processed according to instructions and sent to [facility] laboratories per lab order on TODAY: LT BLUE SST 2 RST RED LAV 2 PPT DK GREEN (LiHep) DK GREEN (SodH) MARTIN DK BLUE (K2) DK BLUE (S) ACD Blood Culture NIPT/NTD [facility] 2023-12-29 09:48:37 Images from the original note were not included. Please review Name from pharmacy: ESCITALOPRAM 10 MG TABLET Will file in chart as: ESCITALOPRAM OXALATE 10 mg tablet Sig: TAKE 1 TABLET BY MOUTH EVERY MORNING. MUST BE SEEN FOR FURTHER REFILLS Disp: 90 tablet Refills: 1 Start: 12/28/2023 Class: eRX For: Depression, unspecified depression type Last ordered: 3 weeks ago (12/05/2023) by JOSEPH Calvillo Last refill: 12/05/2023 Rx #: [id number] Pharmacy comment: REQUEST FOR 90 DAYS PRESCRIPTION. DX Code Needed. Psychiatry: Antidepressants [id number]/28/2023 10:32 AM Protocol Details Manual Review: Verify no changes in dose in the last 3 months Valid encounter within last 12 months This request has changes from the previous prescription. To be filled at: [facility]/pharmacy #[id number] - [place], [place] - [address] AT [facility] [address] [place] Recent Visits Date Type Provider Dept 12/09/23 Office Visit Raul Pryor FNP [facility] 06/04/23 Office Visit Sheyla Trevizo PA [facility] 04/18/23 Office Visit Sheyla Trevizo PA [facility] 04/04/23 Office Visit Sheyla Trevizo PA [facility] Showing recent visits within past 540 days with a meds authorizing provider and meeting all other requirements Future Appointments Date Type Provider Dept 01/06/24 Appointment Raul Pryor FNP [facility] Showing future appointments within next 150 days with a meds authorizing provider and meeting all other requirements [facility] Benita Gonzales MA [facility] 2023-12-25 10:34:59 OB next avail. January. [facility] 2023-12-24 09:21:17 Yes, you can overbook as already discussed at 10 am or 2 pm. Thanks, Dr. Figueroa [facility] IM-SLEEP MEDICINE [facility] 2023-12-24 08:21:31 My chart message sent to patient. TA Macias RN [facility] 2023-12-24 08:11:33 Ordered [facility] 2023-12-23 10:31:55 Please review and sign if appropriate. [facility] 2023-12-19 08:58:[address] Figueroa to see if OB is ok? Compliance reports scanned in. Will keep in Dr. Figueroa inbox folder. [facility] 2023-12-05 14:37:42 Pt to ED CO wound to RLE. Was admitted a little over a month ago for same reason. Would has now come back. No hx of DM. Pt having increased pain. Pt is not ill appearing or febrile. Able to bear weight on extremity. [facility] Janey Le RN [facility] 2023-12-05 10:08:00 Ptatient has appointment for 12/09/23 TA Mcaias RN [facility] 2023-12-05 09:47:39 Pt is scheduled for next wk Unable to close encounter due to pending orders [employer] Odalis Wells [facility] 2023-12-05 09:47:00 Regarding: Male 68 years old/open wound on right leg x 3 months. Patients leg is worse x today ----- Message from Stefan Stewart sent at 12/05/2023 9:44 AM CO [employer] ----- [facility]/ /Male 68 years old/open wound on right leg x 3 months. Patients leg is worse x today. Daughter wants to speak to nurse and is open to Urgent appointment but wants to speak to a nurse first. TA Danielson RN [facility] 2023-12-05 09:47:00 Adult Triage Assessment Last Clinic Visit: 08/08/2023 chronic HF Primary Symptom: worsening wound Onset / Duration: 3 months/pt was hospitalized previously for same wound and was admitted, per daughter (Pat) wound was healing however states it looks worse now that it did when he was in hospital. Location / Description: back of heal/red, "like a burn", oozing yellow, bad smell, large size Pain / Severity: 0 out of 10 Associated Symptoms: none Fever / Method: denies Hydration: no changes to I/O Treatment so far: none Effect on ADL's: some/can walk LMP: n/a Pre-existing condition / Immunocompromised: QUARLES, CKD, HTN Reason for Disposition [1] Red area or streak AND [2] no fever Protocols used: Wound [id number] Nurse Note: after speaking with pt and pt daughter Pat, this RN advised both parties the ER would be a better option due to previous hx with this wound and infection resulting in hospitalization. Pat verbalized understanding. [facility] Gisela Danielson RN [facility] 2023-12-05 09:10:53 Please reach out to Patient to schedule an appointment. Thank You. Last Refilled: ESCITALOPRAM OXALATE 10 mg [id number]/29/2023--NoSig: TAKE 1 TABLET BY MOUTH EVERY MORNING. MUST BE SEEN FOR FURTHER REFILLSSent to pharmacy as: escitalopram 10 mg tablet (LEXAPRO)Class: eRXRoute: OralOrder: [id number]/Time Signed: 09/07/2023 21:03E-Prescribing Status: Receipt confirmed by pharmacy (09/07/2023 9:03 PM CDT) Notes: must be seen for further visits. Recent Visits Date Type Provider Dept 06/04/23 Office Visit Sheyla Trevizo PA [facility] 04/18/23 Office Visit Sheyla Trevizo PA [facility] 04/04/23 Office Visit Sheyla Trevizo PA [facility] Showing recent visits within past 540 days with a meds authorizing provider and meeting all other requirements Future Appointments No visits were found meeting these conditions. Showing future appointments within next 150 days with a meds authorizing provider and meeting all other requirements [facility] 2023-12-04 15:12:17 Compliance report received via fax from [facility] and scanned into chart. [facility] Yue Mattson MA [facility] 2023-06-02 11:56:07 Formatting of this n ote is different from the original. Images from the original note were not included. Please review and sign if appropriate. Name from pharmacy: ESCITALOPRAM 10 MG TABLET Will file in chart as: ESCITALOPRAM OXALATE 10 mg tablet Sig: TAKE 1 TABLET BY MOUTH EVERY MORNING. MUST BE SEEN FOR FURTHER REFILLS Disp: 90 tablet Refills: 1 Start: 06/02/2023 Class: eRX For: Depression, unspecified depression type Last ordered: 3 weeks ago (05/07/2023) by OMER Alcazar Last refill: 05/07/2023 Rx #: [id number] Pharmacy comment: REQUEST FOR 90 DAYS PRESCRIPTION. DX Code Needed. Psychiatry: Antidepressants Failed 06/02/2023 09:31 AM Protocol Details Manual Review: Verify no changes in dose in the last 3 months Valid encounter within last 12 months This request has changes from the previous prescription. To be filled at: [facility]/pharmacy #[id number] - [place], [place] - [address] AT [facility] [address] Recent Visits Date Type Provider Dept 04/18/23 Office Visit Sheyla Trevizo PA [facility] 04/04/23 Office Visit Sheyla Trevizo PA [facility] 05/17/22 Office Visit Sheyla Trevizo PA [facility] Showing recent visits within past 540 days with a meds authorizing provider and meeting all other requirements Future Appointments No visits were found meeting these conditions. Showing future appointments within next 150 days with a meds authorizing provider and meeting all other requirements Benita Gonzales MA [facility]
--- NOTE | 2025-01-07 14:25 | RAD REPORT ---
EXAMINATION: CT HEAD WITHOUT CONTRAST CT CERVICAL SPINE WITHOUT CONTRAST CLINICAL INDICATION: Male, 69 years old. fall head injury TECHNIQUE: Axial CT images from the skull base to the vertex without intravenous contrast. Axial CT i mages through the cervical spine were obtained without intravenous contrast. Sagittal and coronal reformatted images were created from the data set. Coronal and sagittal reformatted images were creat ed from the data set. One or more of the following dose reduction techniques were used: Automated exposure control, adjustment of the mA and/or kV according to patient size, and/or iterative reconstr uction. Unless otherwise specified, incidental findings do not require dedicated imaging follow-up. [id number]. COMPARISON: No prior exam. FINDINGS: Head: INTRACRANIAL: No acute intracranial hemorrhage. No hydrocephalus. No mass effect or midline shift. Mi ld chronic small vessel ischemic changes.Mild cerebral atrophy. VASCULATURE: No visualized abnormalities in the arteries or dural venous sinuses. SCALP/SKULL: No calvarial fracture identified. No acute soft tissue abnormality. SINUSES: The visualized paranasal sinuses and mastoid air cells are predominantly clear. No significa nt mastoid fluid. Cervical spine: ALIGNMENT: The cervical spine has normal alignment without scoliosis or spondylolisthesis. BONE: Vertebral body heights are maintained. No aggressive osseous lesions. DEGENERATIVE: Multilevel cervical spondylosis with evidence of bilateral neural foraminal narrowing. No high grade central spinal stenosis. SOFT TISSUE: No significant abnormalities in the soft tissue of the neck. The visualized lung apices are clear. IMPRESSION: No acute intracranial abnormality. No acute fracture or traumatic malalignment of the cervical spine.
[2025-01-07] MEDS ORDERED: HYDROCODONE/APAP 5/325 MG TAB ONE (14:26)
--- NOTE | 2025-01-07 14:40 | ER ---
Nurse's Notes [facility] Name: Julito Andre Jr Age: 69 yrs Sex: Male : 1955 Arrival Date: 01/07/2025 Time: 13:00 Bed 15 Private MD: Diagnosis: Closed head injury, scalp hematoma, lower leg right abrasion Presentation: 01/07 13:47 Chief complaint: Patient states: Was leaving dialysis and he tripped and fell. pt cm10 reports hitting back of head, no loc. Hematoma noted to back of head and abrasion to right lower leg. Coronavirus screen: Client denies travel out of the [place] in the last 14 days. Ebola Screen: Patient denies travel to an Ebola-affected area in the 21 days before illness onset. Initial Sepsis Screen: Does the patient meet any 2 criteria? No. Patient's initial sepsis screen is negative. Does the patient have a suspected source of infection? No. Patient's initial sepsis screen is negative. Risk Assessment: Do you want to hurt yourself or someone else? Patient reports no desire to harm self or others. Onset of symptoms was January 07, 2025. 13:47 Method Of Arrival: EMS: [facility] cm10 13:47 Acuity: ALLI 3 cm10 Triage Assessment: 15:02 General: Appears in no apparent distress. Behavior is calm, cooperative. Pain: iw Complains of pain in head and right leg. Historical: - Allergies: 13:48 No Known Allergies; cm10 - PMHx: 13:48 Congestive heart failure; Hypertensive disorder; Kidney disease; Dialysis- M, W. F; cm10 - PSHx: 13:48 Dialysis Fistula- Right arm; cm10 - Immunization history:: Adult Immunizations up to date, Last tetanus immunization: unknown. - Infectious Disease History:: Denies. - Social history:: Smoking status: Patient denies any tobacco usage or history of. Screenin:01 [facility] ED Fall Risk Assessment (Adult) History of falling in the last 3 months, iw including since admission Yes- single mechanical fall (1 pt) Confusion or Disorientation No (0 pts) Intoxicated or Sedated No (0 pts) Impaired Gait No (0 pts) Mobility Assist Device Used No (0 pt) Altered Elimination No (0 pt) Score/Fall Risk Level 0 - 2 = Low Risk Oriented to surroundings, Maintained a safe environment. Abuse screen: Denies threats or abuse. Nutritional screening: No deficits noted. Tuberculosis screening: No symptoms or risk factors identified. Assessment: 15:01 Reassessment: Patient appears in no apparent distress at this time. Patient and/or iw family updated on plan of care and expected duration. Pain level reassessed. Patient is alert, oriented x 3, equal unlabored respirations, skin warm/dry/pink. Vital Signs: 13:47 BP 138 / 78; Pulse 71; Resp 15; Temp 97.8; Pulse Ox 100% on R/A; Weight 109.77 kg; cm10 Height 5 ft. 6 in. ; Pain 8/10; 13:47 Body Mass Index 39.06 (109.77 kg, 167.64 cm) cm10 13:47 Pain Scale: Adult cm10 ED Course: 13:08 Patient arrived in ED. mr 13:17 Ye Emerson MD is Attending Physician. sp3 13:48 Triage completed. cm10 13:49 Arm band placed on right wrist. Patient placed in an exam room, on a stretcher. cm10 14:13 CT Head C Spine In Process Unspecified. EDOH 14:26 Chloe Moreno, RN is Primary Nurse. iw 15:01 No provider procedures requiring assistance completed. Patient did not have IV access iw during this emergency room visit. 15:02 Patient has correct armband on for positive identification. iw Administered Medications: 14:28 Drug: HYDROcodone-acetaminophen PO 5 mg-325 mg 2 tabs PO once Route: PO; iw Medication: 15:02 VIS not applicable for this client. iw Outcome: 14:40 Discharge ordered by . [email or web address] 15:02 Discharged to home via wheelchair, with family, iw 15:02 Condition: good 15:02 Discharge instructions given to patient, family, Instructed on discharge instructions, follow up and referral plans. wound care, Demonstrated understanding of instructions, follow-up care, wound care, 15:03 Patient left the ED. iw Signatures: Dispatcher [employer] EDOH PeralesMarianna julian, Reg Reg mr Chloe Moreno, RN RN iw Ye Emerson MD MD sp3 Bárbara Richards RN RN cm10
--- NOTE | 2025-01-07 14:40 | EDPHYS ---
Physician Documentation [facility] Name: Julito Andre Jr Age: 69 yrs Sex: Male : 1955 Arrival Date: 01/07/2025 Time: 13:00 Bed 15 Private MD: ED Physician Ye Emerson HPI: 01/07 14:04 This 69 yrs old Male presents to ER via EMS with complaints of Fall Injury. sp3 14:04 69-year-old male with history of end-stage renal disease Friday sp3 dialysis with dialysis today, hypertension, CHF history now presents to the ED with chief complaint mechanical fall due to near syncopal episode immediately after his dialysis. This happen outside of the dialysis center on the concrete where he fell and has an abrasion to his right lower extremity and hematoma on the scalp. He denies full loss of consciousness, neck pain, chest pain, shortness of breath, abdominal pain, extremity pain, or any other current symptoms. Review of systems otherwise negative.. Historical: - Allergies: 13:48 No Known Allergies; cm10 - PMHx: 13:48 Congestive heart failure; Hypertensive disorder; Kidney disease; Dialysis- M, W. F; cm10 - PSHx: 13:48 Dialysis Fistula- Right arm; cm10 - Immunization history:: Adult Immunizations up to date, Last tetanus immunization: unknown. - Infectious Disease History:: Denies. - Social history:: Smoking status: Patient denies any tobacco usage or history of. ROS: 14:04 Constitutional: Negative for fever, chills, and weight loss, Eyes: Negative for injury, sp3 pain, redness, and discharge, ENT: Negative for injury, pain, and discharge, Neck: Negative for injury, pain, and swelling, Cardiovascular: Negative for chest pain, palpitations, and edema, Respiratory: Negative for shortness of breath, cough, wheezing, and pleuritic chest pain, Abdomen/GI: Negative for abdominal pain, nausea, vomiting, diarrhea, and constipation, Back: Negative for injury and pain, Skin: Negative for injury, rash, and discoloration, Psych: Negative for depression, anxiety, suicide ideation, homicidal ideation, and hallucinations, Allergy/Immunology: Negative for hives, rash, and allergies, Endocrine: Negative for neck swelling, polydipsia, polyuria, polyphagia, and marked weight changes, Hematologic/Lymphatic: Negative for swollen nodes, abnormal bleeding, and unusual bruising, 14:04 All other systems are negative, Exam: 14:06 Constitutional: This is a well developed, well nourished patient who is awake, alert, sp3 and in no acute distress. Eyes: Pupils equal round and reactive to light, extra-ocular motions intact. Lids and lashes normal. Conjunctiva and sclera are non-icteric and not injected. Cornea within normal limits. Periorbital areas with no swelling, redness, or edema. ENT: Nares patent. No nasal discharge, no septal abnormalities noted. External auditory canals are clear. Oropharynx with no redness, swelling, or masses, exudates, or evidence of obstruction, uvula midline. Mucous membranes moist. Neck: Trachea midline, no thyromegaly or masses palpated, and no cervical lymphadenopathy. Supple, full range of motion without nuchal rigidity, or vertebral point tenderness. No Meningismus. Chest/axilla: Normal chest wall appearance and motion. Nontender with no deformity. No lesions are appreciated. Cardiovascular: Regular rate and rhythm with a normal S1 and S2. No gallops, murmurs, or rubs. Normal PMI, no JVD. No pulse deficits. Respiratory: Lungs have equal breath sounds bilaterally, clear to auscultation and percussion. No rales, rhonchi or wheezes noted. No increased work of breathing, no retractions or nasal flaring. Abdomen/GI: Soft, non-tender, with normal bowel sounds. No distension or tympany. No guarding or rebound. No evidence of tenderness throughout. Back: No spinal tenderness. No costovertebral tenderness. Full range of motion. Skin: Warm, dry with normal turgor. Normal color with no rashes, no lesions, and no evidence of cellulitis. Neuro: Awake and alert, GCS 15, oriented to person, place, time, and situation. Cranial nerves II-XII grossly intact. Motor strength 5/5 in all extremities. Sensory grossly intact. Cerebellar exam normal. Normal gait. Psych: Awake, alert, with orientation to person, place and time. Behavior, mood, and affect are within normal limits. 14:06 Head/face: Occipital scalp hematoma noted 2 cm x 3 cm with surface abrasion.. 14:06 Musculoskeletal/extremity: Right lower extremity anterior elise skin tears/abrasions sp3 without wound needing repair. Vital Signs: 13:47 BP 138 / 78; Pulse 71; Resp 15; Temp 97.8; Pulse Ox 100% on R/A; Weight 109.77 kg; cm10 Height 5 ft. 6 in. ; Pain 8/10; 13:47 Body Mass Index 39.06 (109.77 kg, 167.64 cm) cm10 13:47 Pain Scale: Adult cm10 MDM: 13:37 Medical Screening Exam initiated sp3 14:06 Data reviewed: vital signs, nurses notes, radiologic studies. ED course: 69-year-old sp3 male with probable vasovagal near syncope with subsequent mechanical fall. Will obtain CT scan of the head and C-spine to ensure no intracranial injury. Differential diagnosis includes ICH versus skull hematoma versus closed head injury versus concussion versus contusion. Abrasions noted to the right lower extremity which we will dress. No labs indicated given they were just taken at dialysis. Patient and family are okay with the plan we will discharge patient home if scans are negative.. 14:39 ED course: CT scan negative and patient's vital signs remain normal with normal sp3 neurological exam. We will safely discharge patient home at this time.. 01/07 13:51 Order name: CT Head C Spine; Complete Time: 14:39 sp3 01/07 13:51 Order name: Wound dressing; Complete Time: 14:46 sp3 Administered Medications: 14:28 Drug: HYDROcodone-acetaminophen PO 5 mg-325 mg 2 tabs PO once Route: PO; Disposition Summary: 01/07/25 14:40 Discharge Ordered Notes: Location: Home sp3 Condition: Stable sp3 Diagnosis - Closed head injury, scalp hematoma, lower leg right abrasion sp3 Followup: sp3 - With: Private Physician - When: Upon discharge from the Emergency Department - Reason: Continuance of care Discharge Instructions: - Discharge Summary Sheet sp3 - Head Injury, Adult sp3 Forms: - Medication Reconciliation Form sp3 - Antibiotic Education sp3 - Prescription Opioid Use sp3 - Patient Portal Instructions sp3 - Leadership Thank You Letter sp3 Signatures: Dispatcher [employer] Chloe Brown RN RN Ye Emerson MD MD sp3 Bárbara Richards RN RN cm10
[2025-01-07 15:39] VITALS: BP 138/78; TEMP 97.8; O2SAT 100
== END 2025-01-07 15:03 | disposition home or self-care (01) ==
LOC: ER 13:00
DX: S00.03XA Contusion of scalp, initial encounter (principal); S80.811A Abrasion, right lower leg, initial encounter; W18.30XA Fall on same level, unspecified, initial encounter; N18.6 End stage renal disease; I13.2 Hypertensive heart and chronic kidney disease with heart failure and with stage 5 chronic kidney disease, or end stage renal disease; I50.9 Heart failure, unspecified; Z99.2 Dependence on renal dialysis
CPT/HCPCS: 70450; 72125; 99283